=== PATIENT | female | born 2005 | race Caucasian/White ===

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

== ENCOUNTER 2024-01-16 08:17 | Outpatient (CLI) | payer OTHER, SELFPAY ==
[2024-01-16 13:08] LABS: Hematocrit 41.2 % (37.0-47.0); Hemoglobin 12.7 g/dL (12.0-15.0); Mean Corpuscular HGB Conc 30.8 g/dl (32-36); Mean Corpuscular Hemoglobin 25.5 pg (26-34); Mean Corpuscular Volume 82.6 fl (80-100); Mean Platelet Volume 10.6 fl (7.4-10.4); Platelet Count Result 253 k/mm3 (150-375); Red Blood Count 4.99 M/mm3 (4.2-5.4); White Blood Count 6.2 K/mm3 (4.5-10.0)
[2024-01-16 13:23] LABS: Alanine Aminotransferase 35 U/L (6-35); Alkaline Phosphatase 69 U/L (45-116); Aspartate Amino Transferase 42 U/L (14-36); Bilirubin,Total 0.3 mg/dL (0.2-1.3)
[2024-01-16 13:58] LABS: Hemoglobin A1C 5.3 % (<5.7)
== END 2024-01-16 08:18 | disposition home or self-care (01) ==
LOC: ANHGOSHLAB 08:18
PROVIDERS: PCP Family Medicine; Visit Provider Nurse Practitioner
DX: K58.0 Irritable bowel syndrome with diarrhea (principal); R74.8 Abnormal levels of other serum enzymes; E28.2 Polycystic ovarian syndrome
CPT/HCPCS: 36415; 80076; 83036; 83525; 85027

== ENCOUNTER 2024-02-06 01:35 | Emergency (ER) | payer OTHER, SELFPAY ==
[2024-02-06 01:39] VITALS: BP 135/81; PULSE 85; RESP 17; TEMP 36.6; O2SAT 100
--- NOTE | 2024-02-06 02:11 | ED.SKABFB ---
HPI - Skin/Abscess/Foreign Bdy General Chief complaint: Environmental Exposure Stated complaint: I think I have sun poisoning Time Seen by Provider: 02/06/24 01:46 History of Present Illness HPI narrative: Patient is a 18-year-old female with history of recurrent GI issues here with nausea and body aches after prolonged sun exposure today. Patient notes that she was at a water park today and fell asleep while laying on her stomach. She notes she woke up to find the back of her legs extremely sunburned. She has taken ibuprofen about 3 hours ago as well as applied aloe vera without improvement of her symptoms. She notes that she has had nausea, difficulty tolerating p.o. intake, fatigue, body aches, muscle cramping in her bilateral calf as well as pain where her sunburn is located on the back of her legs. Related Data Home Medications Medication Instructions Recorded Confirmed aripiprazole 2 mg tablet mg PO DAILY 03/20/23 01/16/24 etonogestrel 0.12 mg-ethinyl vag ring vaginal 11/23/23 01/16/24 estradiol 0.015 mg/24 hr vaginal ring ([place]) sertraline 100 mg tablet mg PO 11/23/23 01/16/24 Allergies Allergy/AdvReac Type Severity Reaction Status Date / Time No Known Allergies Allergy Verified 02/06/24 02:21 Review of Systems Review of Systems: All systems reviewed & are unremarkable except as noted in HPI and below PMFSH Past Medical History Medical History Abdominal pain Anxiety Choledocholithiasis with chronic cholecystitis Chronic headaches COVID Dizziness Eczema Elevated liver enzymes GERD (gastroesophageal reflux disease) Hemorrhoids Hepatic steatosis History of dental problems Irritable bowel syndrome with diarrhea Nausea and vomiting in adult ARLET (obstructive sleep apnea) Pneumonia Posterior tibial tendinitis of right lower extremity Rectal bleeding RUQ pain Sleep disorder SOB (shortness of breath) on exertion Vomiting Surgical History Surgical History Hx laparoscopic cholecystectomy 06/23/22 Hx of endoscopic retrograde cholangiopancreatography Family History Family History Father Hypertension Family history of elevated blood lipids Other Depression Diabetes mellitus Heart disease History of leukemia Social History Social History (Reviewed 02/01/24 @ 13:01 by Kj Johnson Smoking status: Never smoker Alcohol intake: never Substance use: never Substance use type: does not use Lack of Transportation: No Lack of Food: Never True Current Housing: I Have Housing Concerned About Future Housing: No Difficulty Paying Gas/Electric Bills: No Difficulty Paying for Meds: No Currently Unemployed: No Education: High School Diploma/GED Difficulty w/ Childcare or Family Care: No Living arrangements: with family Occupation/Education: student Gender identity (if verbalized by the patient): Female Spiritual care concerns: No Exam Narrative: GENERAL: Well-appearing, well-nourished, and in no acute distress. HEAD: Normocephalic, atraumatic. EYES: PERRLA and EOMI. ENT: Nares clear. Mucous membranes moist. NECK: Supple. CHEST: Clear to auscultation. No respiratory distress. HEART: Regular rate and rhythm. Normal peripheral pulses. ABDOMEN: Soft, nontender, nondistended. EXTREMITIES: Normal range of motion. Mild bilateral calf edema, 1st degree burn over bilateral calves without any blistering SKIN: Warm, dry, no rash. NEURO: No focal deficits. Alert and oriented x3. Course Course Emergency Course: Chart review performed. Patient here for sunburn. Triage vitals normal. Patient seen and evaluated. Concern for heat exhaustion due to sun exposure today causing her constitutional symptoms. Will do basic lab work, IVF, zofran, tylenol. Patient agreeable to workup and plan. [place]
[2024-02-06 03:03] VITALS: BP 135/81; PULSE 85; RESP 17; TEMP 36.6; O2SAT 100
[2024-02-06] MEDS: LACTATED RINGERS 1,000 ML 999 ML IV CONT (03:09)
[2024-02-06] MEDS: ONDANSETRON INJ 4 MG/2 ML VIAL IV PUSH (03:09)
[2024-02-06 03:17] LABS: Basophils Percent Auto 0.3 % (0.2-1.2); Eosinophils Absolute Auto 0.2 K/mm3 (0-0.3); Eosinophils Percent Auto 1.5 % (0-4.4); Hematocrit 40.2 % (37.0-47.0); Hemoglobin 12.7 g/dL (12.0-15.0); Immature Granulocyte Absolute 0.03 K/mm3 (0.00-0.031); Immature Granulocyte Percent A 0.3 % (0-0.5); Lymphocytes Absolute Auto 3.43 K/mm3 (0.9-3.2); Lymphocytes Percent Auto 33.4 % (18.3-44.2); Mean Corpuscular HGB Conc 31.6 g/dl (32-36); Mean Corpuscular Hemoglobin 25.7 pg (26-34); Mean Corpuscular Volume 81.4 fl (80-100); Mean Platelet Volume 10.1 fl (7.4-10.4); Monocytes Absolute Auto 0.6 K/mm3 (0.1-0.6); Neutrophils Percent Auto 58.5 % (45.5-73.1); Platelet Count Result 259 k/mm3 (150-375); Red Blood Count 4.94 M/mm3 (4.2-5.4); Red Cell Distribution Width 14.6 % (11.5-14.5); White Blood Count 10.3 K/mm3 (4.5-10.0)
--- NOTE | 2024-02-06 03:59 | PC.NURSE ---
This RN, ROWAN Pitts & Ivonne Lopez have already tried multiple times each to obtain labs and/or IV on pt without success. Phlebotomy called to obtain labs and stated he would come attempt after morning rounds.
[2024-02-06 05:03] LABS: Alanine Aminotransferase 46 U/L (6-35); Albumin Level 4.4 g/dL (3.7-5.6); Alkaline Phosphatase 74 U/L (45-116); Anion Gap 10 mmol/L (4-12); Aspartate Amino Transferase 33 U/L (14-36); Bilirubin,Total 0.4 mg/dL (0.2-1.3); Blood Urea Nitrogen 10 mg/dL (8-21); Calcium 9.2 mg/dL (8.9-10.7); Carbon Dioxide 24 mmol/L (22-30); Chloride 105 mmol/L (98-107); Estimated CRCL calculation 161 ml/min; Estimated Glomerular Filt Rate > 60; Glucose 94 mg/dL (65-110); Potassium 3.7 mmol/L (3.4-5.0); Sodium 139 mmol/L (134-143)
[2024-02-06 05:11] LABS: Creatine Kinase 83 U/L (30-135)
[2024-02-06 05:24] LABS: Appearance Urine Clear (Clear); Bacteria Urine None Seen /hpf; Bilirubin Urine Negative (Negative); Blood Urine 1+ (Negative); Color Urine Yellow (Yellow); Glucose Urine UA Negative (Negative); Ketones Urine Negative (Negative); Leukocyte Esterase Ur Negative LEU/UL (Negative); Nitrate Urine Negative (Negative); Non Pathogenic Casts 0-2; Protein Urine Negative (Negative); RBC Urine 0-2 /hpf (0-2); Squamous Epithelial Cell Urine None Seen /hpf (Few); Urobilinogen Urine 0.2 mg/dL (<2.0); WBC Urine 0-5 /hpf (0-3); pH Urine 5.5 (5.0-9.0)
[2024-02-06 05:27] LABS: Add Urine Microscopic? YES
== END 2024-02-06 05:30 | disposition home or self-care (01) ==
PROVIDERS: Emergency Provider Student in an Organized Health Care Education/Training Program; PCP Family Medicine
DX: T67.5XXA Heat exhaustion, unspecified, initial encounter (principal); L55.0 Sunburn of first degree; Z87.01 Personal history of pneumonia (recurrent); K21.9 Gastro-esophageal reflux disease without esophagitis; K58.0 Irritable bowel syndrome with diarrhea; G47.33 Obstructive sleep apnea (adult) (pediatric); F41.9 Anxiety disorder, unspecified; Z86.16 Personal history of COVID-19; R11.2 Nausea with vomiting, unspecified; X32.XXXA Exposure to sunlight, initial encounter
CPT/HCPCS: 36415; 80053; 81001; 81025; 82550; 85025; 96361; 96374; 99284; J2405; J7120

== ENCOUNTER 2024-03-29 15:10 | Outpatient (CLI) | payer OTHER, SELFPAY ==
--- NOTE | ~2024-03-29 | XR_ITS ---
XR knee LT 3V 03/29/2024 15:25 Indication: Left knee pain Procedure: 3 views left knee Comparison: No prior studies for comparison. Findings: There is anatomic alignment. No fracture, subluxation or dislocation. No joint effusion. No foreign bodies. Impression: 1: No significant bone or joint abnormality. Reviewed, dictated and finalized at location B. Impression: 1: No significant bone or joint abnormality.
== END 2024-03-29 15:11 ==
LOC: GOSHIMG 15:12
PROVIDERS: PCP Family Medicine; Visit Provider Nurse Practitioner Family
DX: M25.562 Pain in left knee (principal)
CPT/HCPCS: 73562

== ENCOUNTER 2024-04-11 09:05 | Outpatient (CLI) | payer OTHER, SELFPAY ==
--- NOTE | ~2024-04-11 | MR_ITS ---
MRI of the lumbar spine Clinical History: Radiculopathy Technique: Axial T2-weighted images, and sagittal T1-weighted, T2-weighted, and and T2 fat-sat images were acquired. Findings: There is no fracture or sublocation of the lumbar spine. Vertebral bodies maintain normal h eight and line. No bone marrow signal abnormality seen. At L1-L2, L2-L3, L3-L4, L4-L5, there is no significant disc bulge or herniation. There are moderate f acet joint degenerative changes at these levels. No spinal canal stenosis or neural foraminal narrowi ng at these levels. At L5-S1, there is mild diffuse disc bulge with mild to moderate facet arthropathy. No central canal stenosis. There is moderate bilateral neural foraminal narrowing, left worse than right. Paravertebral soft tissues are unremarkable. Impression: Moderate bilateral neural foraminal narrowing at L5-S1, left worse than right. Additional mild degenerative change, as above. Reviewed, dictated and finalized at [facility]. Impression: Moderate bilateral neural foraminal narrowing at L5-S1, left worse than right. Additional mild degenerative change, as above.
== END 2024-04-11 09:06 | disposition home or self-care (01) ==
LOC: GOSHIMG 09:06
PROVIDERS: PCP Family Medicine; Visit Provider Nurse Practitioner Family
DX: M54.16 Radiculopathy, lumbar region (principal)
CPT/HCPCS: 72148

== ENCOUNTER 2024-07-15 13:00 | Outpatient (RCR) | payer OTHER, SELFPAY ==
--- NOTE | 2024-06-20 09:02 | OPREHPOC ---
Outpatient Therapy Plan of Care This is a Multidisciplinary Plan of Care that may contain components documented by all disciplines (PT, OT, and ST.) PT Problem 1 PT Problem #1 Knowledge Deficit PT Goal 1 Goal / Goal Update [place] with HEP Target Visit 4 PT Goal 2 Goal / Goal Update Patient will demonstrate ability to properly obtain pelvic tilt without biofeedback Target Visit 4 PT Problem 2 PT Problem #2 Pain PT Goal 1 Goal / Goal Update Report multiple days of 0/10 pain over the course of 2 weeks Target Visit 8 PT Problem 3 PT Problem #3 Impaired Strength PT Goal 1 Goal / Goal Update Improve lower abdominal strength to 4/5 to improve pelvic stability with transitional strengthening program Target Visit 8 PT Problem 4 PT Problem #4 Impaired Range of Motion PT Goal 1 Goal / Goal Update Improve jordi ankle dorsiflexion to 10+ degrees to improve stride and foot progression with gait and ADL performance. Target Visit 8 PT Goal 2 Goal / Goal Update Patient will require cueing less than 50% of the time for shoulder posturing and upright posturing for improved spinal alignment with ADLs and work related activity Target Visit 8
--- NOTE | 2024-06-20 09:02 | PTOPEVAL1 ---
Assessment and note entered by Kuldeep Tyler, PT Evaluation Information Assessment Status Evaluation Diagnosis Spondylosis without radiculopathy ICD-10 Condition Codes (PT) Pain in low back M54.50 Onset 8 years Subjective Information Reports that she will have occasional numbness and tingling in her feet when she sits for a long time. Pain is all in the lower back. She used to dance and tumble and has a history of falls with this but no specific injury. If she stands or sits for too long she gets pain and has to constantly reposition. She will occasionally wake up with pain as well. She typically sleeps in all different posititions. Reported Pain Level Pain Score 4: Self Report Assessment PT Clinical Summary Patient presents with signs and symptoms consistent with early onset spinal stenosis and discogenic aggravation. Presents with tight posterior chain in ankles and very weak lower abdominals. Kyphotic thoracic spine exaggerates lumbar postural stress. Will benefit from skilled therapy to address these deficits for transition to independent spinal strengthening program. Plan of Care Interventions Electrical Stimulation,Gait Training,Hot Pack/Cold Pack,Manual Therapy,Neuro Re-education, Therapeutic Activities,Therapeutic Exercise PT Services Indicated Yes Treatment Frequency and 2x/week for 8 visits Duration These treatments will address the objective and functional deficits as defined above. The patient will be advanced safely and appropriately in order for the patient to progress towards his/her prior level of function. Additional exercises will be introduced and as well as a comprehensive home exercise program upon discharge, if needed, ?to ensure carryover of functional gains achieved in the clinic. This treatment plan has been reviewed and agreement upon by the patient.
--- NOTE | 2024-07-15 13:48 | OPREHPOC ---
Outpatient Therapy Plan of Care This is a Multidisciplinary Plan of Care that may contain components documented by all disciplines (PT, OT, and ST.) PT Problem 1 PT Problem #1 Knowledge Deficit PT Goal 1 Goal / Goal Update [place] with HEP Target Visit 4 Progress Met PT Goal 2 Goal / Goal Update Patient will demonstrate ability to properly obtain pelvic tilt without biofeedback Target Visit 4 Progress Met PT Problem 2 PT Problem #2 Pain PT Goal 1 Goal / Goal Update Report multiple days of 0/10 pain over the course of 2 weeks Target Visit 8 Progress Met PT Problem 3 PT Problem #3 Impaired Strength PT Goal 1 Goal / Goal Update Improve lower abdominal strength to 4/5 to improve pelvic stability with transitional strengthening program Target Visit 8 Progress Met PT Problem 4 PT Problem #4 Impaired Range of Motion PT Goal 1 Goal / Goal Update Improve jordi ankle dorsiflexion to 10+ degrees to improve stride and foot progression with gait and ADL performance. Target Visit 8 Progress Partially Met PT Goal 2 Goal / Goal Update Patient will require cueing less than 50% of the time for shoulder posturing and upright posturing for improved spinal alignment with ADLs and work related activity Target Visit 8 Progress Met
--- NOTE | 2024-07-15 13:48 | PTOPDC ---
Assessment and note entered by Kuldeep Tyler, PT Evaluation Information Assessment Status Discharge Diagnosis Spondylosis without radiculopathy ICD-10 Condition Codes (PT) Pain in low back M54.50 Onset 8 years Subjective Information Reports that overall she is doing much better at this time. Pain is down although she does have a possible kidney infection which is different from her prior pain. No concerns for discharge at this time. Reported Pain Level Pain Score 0: Self Report Assessment PT Clinical Summary Patient has met goals for therapy and is suitable for discharge at this time to HEP. No concerns on continued performance of HEP. Plan of Care PT Services Indicated Yes
== END 2024-07-15 17:11 | disposition home or self-care (01) ==
LOC: ANHPT 13:00
PROVIDERS: PCP Family Medicine; Visit Provider Nurse Practitioner Family
DX: M47.816 Spondylosis without myelopathy or radiculopathy, lumbar region (principal)
CPT/HCPCS: 97110; 97112; 97140; 97161; 97530

== ENCOUNTER 2024-07-17 18:58 | Emergency (ER) | payer OTHER, SELFPAY ==
--- NOTE | ~2024-07-17 | CT_ITS ---
EXAMINATION: CT abdomen pelvis w con DATE: 07/17/2024 23:50 INDICATION: Flank pain. TECHNIQUE: Computed tomography (CT) of the abdomen and pelvis was performed with 100 mL Omnipaque 350 intravenous contrast. Automated exposure control and iterative reconstruction technique were employe d. The dose-length product was 1891.42 mGy-cm. COMPARISON: CT abdomen and pelvis 03/28/2023 FINDINGS: The visualized portions of the lung bases demonstrate minimal atelectasis. No pleural effus ion. The heart size is normal. No pericardial effusion. The liver, spleen, pancreas, adrenal glands, and kidneys are normal. There are changes of cholecystectomy. There are no dilated loops of bowel. Th e appendix is normal. There are no pathologically enlarged lymph nodes. There is no free intraperiton eal fluid. The bones are unremarkable. IMPRESSION: 1. No etiology for the patient's symptoms. Reviewed, dictated and finalized at location A. E COORDINATOR
[2024-07-17 19:00] VITALS: BP 131/87; PULSE 105; RESP 16; TEMP 36.6; O2SAT 100
[2024-07-17 21:44] VITALS: BP 133/86; PULSE 103; RESP 18; O2SAT 100
[2024-07-17 22:17] VITALS: BP 126/77; PULSE 98; RESP 16; TEMP 37; O2SAT 98
[2024-07-17 22:19] LABS: BEDSIDEPREGUCG Negative (Negative)
[2024-07-17] MEDS: SODIUM CHLORIDE 0.9% IV 1,000 ML 999 ML IV CONT (22:34)
[2024-07-17] MEDS: ONDANSETRON INJ 4 MG/2 ML VIAL IV PUSH (22:34)
[2024-07-17 22:35] LABS: Basophils Percent Auto 0.3 % (0.2-1.2); Eosinophils Absolute Auto 0.1 K/mm3 (0-0.3); Eosinophils Percent Auto 1.4 % (0-4.4); Hematocrit 44.3 % (37.0-47.0); Immature Granulocyte Absolute 0.02 K/mm3 (0.00-0.031); Immature Granulocyte Percent A 0.3 % (0-0.5); Immature Platelet Fraction Pct 3.4 % (0.9-11.2); Lymphocytes Absolute Auto 1.74 K/mm3 (0.9-3.2); Lymphocytes Percent Auto 22.7 % (18.3-44.2); Mean Corpuscular HGB Conc 31.6 g/dl (32-36); Mean Platelet Volume 9.8 fl (7.4-10.4); Monocytes Absolute Auto 0.3 K/mm3 (0.1-0.6); Monocytes Percent Auto 3.8 % (2.6-8.5); Neutrophils Absolute Auto 5.5 K/mm3 (1.3-6.7); Neutrophils Percent Auto 71.5 % (45.5-73.1); Platelet Count Result 246 k/mm3 (150-375); Red Blood Count 5.61 M/mm3 (4.2-5.4); White Blood Count 7.7 K/mm3 (4.5-10.0)
[2024-07-17 22:42] LABS: Lipase 71 U/L (23-300)
[2024-07-17 22:48] LABS: Add Urine Microscopic? YES; Appearance Urine Clear (Clear); Bacteria Urine None Seen /hpf; Bilirubin Urine Negative (Negative); Blood Urine 2+ (Negative); Color Urine Dark Yellow (Yellow); Glucose Urine UA Negative (Negative); Ketones Urine Trace mg/dL (Negative); Leukocyte Esterase Ur Negative LEU/UL (Negative); Need Manual Microscopic Reviewed; Nitrate Urine Negative (Negative); Non Pathogenic Casts 0-2; Protein Urine Trace mg/dL (Negative); Specific Grav Ur 1.035 (1.001-1.035); Squamous Epithelial Cell Urine Few /hpf (Few); WBC Urine 0-5 /hpf (0-3); pH Urine 5.5 (5.0-9.0)
--- NOTE | 2024-07-17 23:02 | ED.GENADULT ---
HPI - General Adult General Chief complaint: Nausea/Vomiting/Diarrhea Stated complaint: r/o kidney infection Time Seen by Provider: 07/17/24 21:45 History of Present Illness HPI narrative: Patient is a 18-year-old female who presents to the emergency department this evening complaining of bilateral flank pain for the past 3 days. Patient states that she saw her OBGYN a few days ago and had her urine checked OBGYN place her on antibiotics due to concern for UTI which she has been taking for the past 2 days. Patient states that she was informed that she did have some blood in the urine but also states that she is currently on her menstrual cycle so she is unsure if the blood is from that. Patient states that initially her flank pain was on the right side but now it is bilateral and she is concerned that she has a kidney infection. Denies any history of kidney stones. Admits mild nausea and vomiting. Admits to mild dysuria. No additional symptoms or concerns at this time. Related Data Home Medications ?Medication ?Instructions ?Recorded ?Confirmed ?Last Taken ?Type aripiprazole 2 mg tablet mg PO DAILY 03/20/23 07/12/24 Unknown History Allergies Allergy/AdvReac Type Severity Reaction Status Date / Time No Known Allergies Allergy Verified 07/12/24 16:25 Review of Systems Review of Systems: All systems are reviewed and are negative unless stated otherwise in the HPI. [facility] Past Medical History Medical History Hepatic steatosis Rectal bleeding Hemorrhoids Vomiting GERD (gastroesophageal reflux disease) Irritable bowel syndrome with diarrhea COVID Choledocholithiasis with chronic cholecystitis Nausea and vomiting in adult RUQ pain Elevated liver enzymes Posterior tibial tendinitis of right lower extremity Eczema Sleep disorder Anxiety Abdominal pain ARLET (obstructive sleep apnea) Pneumonia SOB (shortness of breath) on exertion History of dental problems Dizziness Chronic headaches Surgical History Surgical History Hx of endoscopic retrograde cholangiopancreatography Hx laparoscopic cholecystectomy 06/23/22 Family History Family History Father Hypertension Family history of elevated blood lipids Other Depression Diabetes mellitus Heart disease History of leukemia Social History Social History Smoking status: Never smoker Alcohol intake: never Substance use: never Substance use type: does not use Lack of Transportation: No Lack of Food: Never True Current Housing: I Have Housing Concerned About Future Housing: No Difficulty Paying Gas/Electric Bills: No Difficulty Paying for Meds: No Currently Unemployed: No Education: High School Diploma/GED Difficulty w/ Childcare or Family Care: No Living arrangements: with family Occupation/Education: student Gender identity (if verbalized by the patient): Female Spiritual care concerns: No Exam Narrative: General: Alert, awake, afebrile, in no acute distress. HEENT: PERRL, no rhinorrhea, no post nasal drip, oropharynx clear. Neck: Trachea midline, no JVD, no lymphadenopathy. Cardiovascular: Regular rate and rhythm, no murmurs, rubs or gallops, no peripheral edema. Respiratory: Clear to auscultation bilaterally, no tachypnea, no wheezing, no rhonchi, no rubs, no respiratory distress. Abdomen: Soft, nontender, nondistended, no rebound, no guarding, no peritoneal signs, negative CVA tenderness bilaterally. Musculoskeletal: No joint swelling or deformity, normal muscle tone. Skin: No rashes or petechia, no signs of infection. Psychiatric: Alert and oriented, normal behavior and judgment for situation. Neurological: Alert and oriented to person, place, and time. Follows all commands. No focal deficits, speech is clear and fluent. Course Vital Signs Vital signs: Vital Signs Temperature 97.8 F 07/17/24 19:00 Pulse Rate 105 H 07/17/24 19:00 Respiratory Rate 16 07/17/24 19:00 Blood Pressure 131/87 07/17/24 19:00 Pulse Oximetry 100 07/17/24 19:00 Temperature 97.6 F 07/17/24 23:40 Pulse Rate 86 07/17/24 23:40 Respiratory Rate 14 07/17/24 23:40 Blood Pressure 120/80 07/17/24 23:40 Pulse Oximetry 100 07/17/24 23:40 Medical Decision Making MDM Narrative Medical decision making narrative: The patient was evaluated by myself in the emergency department. History is obtained from patient who is an independent historian and physical exam was performed. External medical records were reviewed at this time. IV was established and pertinent tests were ordered. Patient was administered 1 L IV fluid bolus with normal saline, 200 mg of oral Pyridium and 4 mg of IV Zofran for nausea. Laboratory results obtained revealing mild transaminitis with an AST of 47 and an ALT of 93 otherwise no acute process. Urinalysis revealed 2+ blood otherwise unremarkable. Patient was informed to continue taking her antibiotic and to finish her full prescribed course. Imaging studies obtained included CT abdomen pelvis with IV contrast which was independently interpreted by me revealing no acute process, which is pending final radiology interpretation. Differential diagnosis considerations include pyelonephritis, cystitis, urinary tract infection, renal colic/nephrolithiasis. Comorbidities impacting this visit include none. I have evaluated and discussed social determinants of health with the patient that could potentially impact subsequent diagnosis and treatment plans. On repeat assessment of the patient, reevaluation revealed that the patient is doing well and is in no acute distress. Patient symptoms have improved since she arrived to our emergency department. Repeat vital signs were all reviewed and noted to be stable. Differential diagnosis and treatment plan were discussed with the patient at bedside. Patient agrees with discussion and after shared medical decision making agrees with discharge. All questions were answered to the patient's satisfaction. Patient will follow up with her OBGYN in 3-5 days. Patient was provided with strict return precautions and instructed to return to the emergency department if any new or worsening symptoms develop. The patient was discharged in stable condition. Vital Signs Vital Signs: Vital Signs Temperature 97.8 F 07/17/24 19:00 Pulse Rate 105 H 07/17/24 19:00 Respiratory Rate 16 07/17/24 19:00 Blood Pressure 131/87 07/17/24 19:00 Pulse Oximetry 100 07/17/24 19:00 Temperature 97.6 F 07/17/24 23:40 Pulse Rate 86 07/17/24 23:40 Respiratory Rate 14 07/17/24 23:40 Blood Pressure 120/80 07/17/24 23:40 Pulse Oximetry 100 07/17/24 23:40 Lab Data 07/17/24 22:24 07/17/24 23:17 Labs: Lab Results 07/17/24 07/17/24 07/17/24 Range/Units 22:10 22:15 22:17 WBC (4.5-10.0) K/mm3 RBC (4.2-5.4) M/mm3 Hgb (12.0-15.0) g/dL Hct (37.0-47.0) % MCV (80-100) fl MCH (26-34) pg MCHC (32-36) g/dl RDW (11.5-14.5) % Plt Count (150-375) k/mm3 MPV (7.4-10.4) fl Immature Gran % (Auto) (0-0.5) % Neut % (Auto) (45.5-73.1) % Lymph % (Auto) (18.3-44.2) % [place] % (Auto) (2.6-8.5) % Eos % (Auto) (0-4.4) % Baso % (Auto) (0.2-1.2) % Lymph # (Auto) (0.9-3.2) K/mm3 [place] # (Auto) (0.1-0.6) K/mm3 Eos # (Auto) (0-0.3) K/mm3 Baso # (Auto) (0.0-0.1) K/mm3 Abs Immat Gran (auto) (0.00-0.031) K/mm3 Absolute Neuts (auto) (1.3-6.7) K/mm3 Absolute Nucleated RBC (0.0-0.012) K/mm3 Nucleated RBC % (0.0-0.2) % Platelet Estimate (Adequate) % Immature Plt Fraction (0.9-11.2) % Ovalocytes [place] Cells Schistocytes Sodium (134-143) mmol/L Potassium (3.4-5.0) mmol/L Chloride (98-107) mmol/L Carbon Dioxide (22-30) mmol/L Anion Gap (4-12) mmol/L BUN (8-21) mg/dL Creatinine (0.7-1.0) mg/dL Estim Creat Clear Calc ml/min Estimated GFR (59 - ) Glucose (65-110) mg/dL Calcium (8.9-10.7) mg/dL Magnesium (1.6-2.3) mg/dL Total Bilirubin (0.2-1.3) mg/dL AST (14-36) U/L ALT (6-35) U/L Alkaline Phosphatase (45-116) U/L Total Protein (6.3-8.6) g/dL Albumin (3.7-5.6) g/dL Lipase (23-300) U/L Serum HCG, Qual Negative Urine Color Dark yellow (Yellow) Urine Appearance Clear (Clear) Urine pH 5.5 (5.0-9.0) Ur Specific [place] 1.035 (1.001-1.035) Urine Protein Trace (Negative) mg/dL Urine Glucose (UA) Negative (Negative) mg/dL Urine Ketones Trace H (Negative) mg/dL Ur Blood (Man) 2+ H (Negative) Urine Nitrate Negative (Negative) Urine Bilirubin Negative (Negative) Urine Urobilinogen 1.0 (<2.0) mg/dL Add Ur Microanalysis Reviewed Leukocyte Esterase Rfl Negative (Negative) TANK/UL Urine RBC 6-10 H (0-2) /hpf Urine WBC 0-5 (0-3) /hpf Ur Squamous Epith Cells Few (Few) /hpf Urine Bacteria None seen /hpf Urine Casts 0-2 POC Urine HCG, Qual Negative (Negative) 07/17/24 07/17/24 Range/Units 22:24 23:17 WBC 7.7 (4.5-10.0) K/mm3 RBC 5.61 H (4.2-5.4) M/mm3 Hgb 14.0 (12.0-15.0) g/dL Hct 44.3 (37.0-47.0) % MCV 79.0 L (80-100) fl MCH 25.0 L (26-34) pg MCHC 31.6 L (32-36) g/dl RDW 15.0 H (11.5-14.5) % Plt Count 246 (150-375) k/mm3 MPV 9.8 (7.4-10.4) fl Immature Gran % (Auto) 0.3 (0-0.5) % Neut % (Auto) 71.5 (45.5-73.1) % Lymph % (Auto) 22.7 (18.3-44.2) % [place] % (Auto) 3.8 (2.6-8.5) % Eos % (Auto) 1.4 (0-4.4) % Baso % (Auto) 0.3 (0.2-1.2) % Lymph # (Auto) 1.74 (0.9-3.2) K/mm3 [place] # (Auto) 0.3 (0.1-0.6) K/mm3 Eos # (Auto) 0.1 (0-0.3) K/mm3 Baso # (Auto) 0.0 (0.0-0.1) K/mm3 Abs Immat Gran (auto) 0.02 (0.00-0.031) K/mm3 Absolute Neuts (auto) 5.5 (1.3-6.7) K/mm3 Absolute Nucleated RBC 0.000 (0.0-0.012) K/mm3 Nucleated RBC % 0.0 (0.0-0.2) % Platelet Estimate Adequate (Adequate) % Immature Plt Fraction 3.4 (0.9-11.2) % Ovalocytes 1+ [place] Cells 1+ Schistocytes None seen Sodium 138 (134-143) mmol/L Potassium 4.0 (3.4-5.0) mmol/L Chloride 112 H (98-107) mmol/L Carbon Dioxide 21 L (22-30) mmol/L Anion Gap 5 (4-12) mmol/L BUN 9 (8-21) mg/dL Creatinine 0.70 (0.7-1.0) mg/dL Estim Creat Clear Calc 163 ml/min Estimated GFR > 60 (59 - ) Glucose 93 (65-110) mg/dL Calcium 8.0 L (8.9-10.7) mg/dL Magnesium 1.9 (1.6-2.3) mg/dL Total Bilirubin 0.6 (0.2-1.3) mg/dL AST 47 H (14-36) U/L ALT 93 H (6-35) U/L Alkaline Phosphatase 63 (45-116) U/L Total Protein 6.0 L (6.3-8.6) g/dL Albumin 3.6 L (3.7-5.6) g/dL Lipase 71 (23-300) U/L Serum HCG, Qual Cancelled Urine Color (Yellow) Urine Appearance (Clear) Urine pH (5.0-9.0) Ur Specific [place] (1.001-1.035) Urine Protein (Negative) mg/dL Urine Glucose (UA) (Negative) mg/dL Urine Ketones (Negative) mg/dL Ur Blood (Man) (Negative) Urine Nitrate (Negative) Urine Bilirubin (Negative) Urine Urobilinogen (<2.0) mg/dL Add Ur Microanalysis Leukocyte Esterase Rfl (Negative) TANK/UL Urine RBC (0-2) /hpf Urine WBC (0-3) /hpf Ur Squamous Epith Cells (Few) /hpf Urine Bacteria /hpf Urine Casts POC Urine HCG, Qual (Negative) Discharge Plan Discharge Clinical Impression: Acute flank pain Patient Disposition: Home, Self-Care Condition: Improved Instructions: Antibiotic Form, Flank Pain (ED) Additional Instructions: Please follow-up with your family doctor within the next 3-5 days. Continue taking the antibiotic that you are currently taking for urinary tract infection. Use the prescribed peridium as instructed to help with your dysuria. Return to the emergency department if any new or worsening symptoms develop. Patient Language: Ukrainian Prescriptions: New phenazopyridine [Pyridium] 200 mg tablet 200 mg PO TID Qty: 3 0RF No Action aripiprazole 2 mg tablet PO DAILY (DME) cpap mask See Rx Instructions .Route .MEDSUPPLY Qty: 1 0RF Rx Instructions: Half face mask covering nose replacement for Resmed Airsense AutoPAP benzonatate 200 mg capsule 200 mg PO TID PRN (Reason: cough) Qty: 30 0RF promethazine-DM 6.25-15 mg/5 mL syrup 5 ml PO Q4-6H PRN (Reason: cough) Qty: 118 0RF albuterol sulfate 90 mcg/actuation HFA aerosol inhaler 1 puff inhalation Q4H PRN (Reason: shortness of breath or wheezing) Qty: 6.7 2RF (DME) CPAP See Rx Instructions .Route .MEDSUPPLY Qty: 1 0RF Rx Instructions: Resmed AirSense 11 AutoPAP 5-15 cm H2O, CPAP mask/filters/tubing and humidifier chamber trazodone 50 mg tablet 50 mg PO QHS PRN (Reason: sleep) Qty: 60 2RF Rx Instructions: take 1 tablet at bedtime for 1 week, may increase to 2 tablets at bedtime if needed Follow-up/Referrals: Navin Reynolds MD [Primary Care Provider] - 1 Week Time of Disposition: 00:05
[2024-07-17 23:12] LABS: SPREG INTERNAL CONTROL Positive; Serum Qual hCG Negative
[2024-07-17 23:31] LABS: Alanine Aminotransferase 93 U/L (6-35); Albumin Level 3.6 g/dL (3.7-5.6); Alkaline Phosphatase 63 U/L (45-116); Anion Gap 5 mmol/L (4-12); Aspartate Amino Transferase 47 U/L (14-36); Bilirubin,Total 0.6 mg/dL (0.2-1.3); Blood Urea Nitrogen 9 mg/dL (8-21); Carbon Dioxide 21 mmol/L (22-30); Chloride 112 mmol/L (98-107); Estimated CRCL calculation 163 ml/min; Estimated Glomerular Filt Rate > 60; Glucose 93 mg/dL (65-110); Magnesium 1.9 mg/dL (1.6-2.3); Sodium 138 mmol/L (134-143)
[2024-07-17 23:39] LABS: Burr Cells 1+; Ovalocytes 1+; Platelet Estimate Adequate (Adequate); Schistocytes None Seen
[2024-07-17 23:40] VITALS: BP 120/80; PULSE 86; RESP 14; TEMP 36.4; O2SAT 100
[2024-07-18] MEDS: PHENAZOPYRIDINE HCL 100 MG TABLET 200 MG PO (00:12)
== END 2024-07-18 00:15 | disposition home or self-care (01) ==
PROVIDERS: Emergency Provider Emergency Medicine; PCP Family Medicine
DX: R10.9 Unspecified abdominal pain (principal); K21.9 Gastro-esophageal reflux disease without esophagitis; K58.0 Irritable bowel syndrome with diarrhea; G47.33 Obstructive sleep apnea (adult) (pediatric); F41.9 Anxiety disorder, unspecified; Z90.49 Acquired absence of other specified parts of digestive tract; Z86.16 Personal history of COVID-19; Z79.899 Other long term (current) drug therapy
CPT/HCPCS: 36415; 74177; 80053; 81001; 81025; 83690; 83735; 84703; 85025; 85055; 96361; 96374; 99284; A9270; J2405; J7030; Q9967

== ENCOUNTER 2024-11-04 09:39 | Outpatient (CLI) | payer OTHER, SELFPAY ==
--- NOTE | ~2024-11-04 | MR_ITS ---
MRI of the left knee Clinical history: Pain Technique: Coronal proton density and proton density-weighted images, sagittal proton-density and T2 fat-sat images, and axial proton-density fat-saturated images were acquired. Findings: Anterior and posterior cruciate ligaments are intact. There is increased signal of proximal ACL which could reflect mild mucoid degenerative change. Medial collateral ligament and the lateral collateral ligament, as are intact. Popliteus tendon is intact. Medial and lateral menisci are intact, without evidence of tear. Articular cartilage is well preserved throughout the knee. Bone marrow signals are unremarkable. Extensor mechanism is intact. No joint effusion or Lozano's cyst. Impression: No acute abnormality. Suspected mild mucoid degenerative change of the proximal ACL. Reviewed, dictated and finalized at location . Impression: No acute abnormality. Suspected mild mucoid degenerative change of the proximal ACL.
== END 2024-11-04 09:40 | disposition home or self-care (01) ==
LOC: GOSHIMG 09:40
PROVIDERS: PCP Nurse Practitioner Family; Visit Provider Nurse Practitioner Family
DX: M25.562 Pain in left knee (principal)
CPT/HCPCS: 73721

== ENCOUNTER 2025-02-12 15:01 | Outpatient (CLI) | payer OTHER, SELFPAY ==
--- OUTSIDE RECORDS SUMMARY | 2025-02-12 15:05 | XMS_ITS | Clinical Summary ---
Author Organization [facility] [employer] Address [address] [place] [address] Care Team Providers Care Damage Adjuster Name Role Phone Katlyn Reynolds MD Primary Care Provider [phone] Source Comments [facility] [employer],non-owned Affiliates and Associated Physician Practices is amultiple site organization consisting of ambulatory clinics and hospital sitesin [place], [place], [place] and [place]. This disclosure is being madepursuant to the Care Everywhere program and may not contain all information available regarding this patient. Last updated 18.[employer] Allergies No known active allergies Medications * Be aware that medications may not be up to date on this document. Alwaysverify current medications with the patient. No known medications Family History Medical History Relation Name Comments CAD (Coronary Artery Disease) Maternal Grandmother Leukemia Maternal Grandmother Asthma Mother Leukemia Paternal Grandfather Relation Name Status Comments Father Alive Maternal Grandmother Mother Alive Paternal Grandfather Social History Tobacco Use Types Packs/Day Years Used Date Smoking Tobacco: Never Smokeless Tobacco: Never Comments:non smoking househo ld Comments No Sex and Gender Information Value Date Recorded Sex Assigned at Not on file Legal Sex Female 9:04 AM CDT Gender Identity Not on file Sexual Orientation Not on file Last Filed Vital Signs Vital Sign Reading Time Taken Comments Blood Pressure 110/58 07/09/2020 11:20 AM BUSINESS DIVISION CHAIR Pulse 88 07/09/2020 11:20 AM BUSINESS DIVISION CHAIR Temperature 36.9 C (98.4 F) 05/03/2018 4:38 PM CDT Respiratory Rate 20 07/09/2020 11:2 0 AM BUSINESS DIVISION CHAIR Oxygen Saturation 99% 07/09/2020 11: 20 AM BUSINESS DIVISION CHAIR Inhaled Oxygen Concentration - - Weight 110.3 kg (243 lb 2.7 oz) 020 11:20 AM BUSINESS DIVISION CHAIR Height 174 cm (5' 8.5) 07/09/2020 11:2 0 AM BUSINESS DIVISION CHAIR Body Mass Index 36.43 07/09/2020 11:20 AM BUSINESS DIVISION CHAIR Plan of Treatment Health Maintenance Due Date Last Done Comments HIV SCREENING 2019 HPV VACCINE (1 - 3-dose series) 2019 CHLAMYDIA/GONORRHEA SCREENING 2020 MENINGOCOCCAL (Group B) VACC INE SHARED DECISION-MAKING (1 of 2 - Standard) 2020 HEPATITIS C SCREENING 07/24/2022 DTAP/TDAP/TD VACCINES (1 - Tdap) 2023 HEPATITIS B VACCINE (1 of 3 - 19+ 3-dose series) 2023 COVID-19 VACCINE (1 - 2023-2 5 season) 2024 DEPRESSION SCREENING 08/07/2024 INFLUENZA VACCINE (#1) 2025 ZOSTER VACCINE (1 of 2) 2054 HIB VACCINE Aged Out No longer eligi ble based on patient's age to complete this topic MENINGOCOCCAL GROUPS A/C/Y/W VACCINE Aged Out No longer eligible b ased on patient's age to complete this topic PNEUMOCOCCAL VACCINE Aged Out No long er eligible based on patient's age to complete this topic Insurance [employer] Care Teams Damage Adjuster Relationship Specialty Start Date End Date Katlyn Reynolds MD [address] [place] [address] PCP - General Family Medicine 06/24/20
--- OUTSIDE RECORDS SUMMARY | 2025-02-12 15:05 | XMS_ITS | Clinical Summary ---
Author Organization [facility] Address [facility] [place] [address] Care Team Providers Care Entry Level Assistant Manager Name Role Phone Navin Reynolds MD Primary Care Provider [phone]- [phone] Allergies No known active allergies Encounters Date Type Department Care Team Description 01/01/2025 6:39 PM CDT - 01/01/2025 10:23 PM CDT Emergency [facility] Emergency Room [id number] [place] [address] [phone] Sharita Miller DO Abdominal Pain Discharge Disposition: Home or Self Care (Routine Discharge) 01/01/2025 Travel from Last 3 Months Social History Tobacco Use Types Packs/Day Years Used Date Smoking Tobacco: Never Assessed Tobacco Cessation:Counseling Given: Not Answered Comments Unknown Sex and Gender Information Value Date Recorded Sex Assigned at Female 01/01/2025 7:30 PM CDT Legal Sex Female 6:36 PM CDT Gender Identity Not on file Sexual Orientation Not on file Last Filed Vital Signs Vital Sign Reading Time Taken Comments Blood Pressure 109/69 01/01/2025 10:23 PM CDT Pulse 93 01/01/2025 6:45 PM CDT Temperature 37.1 C (98.7 F) 01/01/2025 6:45 PM CDT Respiratory Rate 16 01/01/2025 6:45 PM CDT Oxygen Saturation 97% 01/01/2025 10:23 PM CDT Inhaled Oxygen Concentration - - Weight 131.5 kg (290 lb) 01/01/2025 6:45 PM CDT Height 175.3 cm (5' 9) 01/01/2025 6:45 PM CDT Body Mass Index 42.83 01/01/2025 6:45 PM CDT Plan of Treatment Health Maintenance Due Date Last Done Comments Annual Physical 2007 HPV Vaccines (1 - 3-dose series) 2019 Meningococcal B Vaccine (1 o f 2 - Standard) 2020 Hepatitis C 2022 DTaP, Tdap and Td Vaccines ( 1 - Tdap) 2023 Hepatitis B Vaccines (1 of 3 - 19+ 3-dose series) 2023 COVID-19 Vaccine (3 - 2023-2 5 season) 2024 07/20/2021, 06/02/2021 Meningococcal Vaccine Completed 04/17/2023 Pneumococcal Vaccine: Pediatrics (0 to 5 Years) and At-Risk Patients (6 to 49 Years) Aged Out No longer eligible b ased on patient's age to complete this topic RSV Immunizations Under 20 Months Aged Out No longer eligible b ased on patient's age to complete this topic Procedures Procedure Name Priority Date/Time Associated Diagnosis Comments CT ABD+PEL W CON STAT 01/01/2025 9:13 PM CDT LIPASE STAT 01/01/2025 7:00 PM CDT COMPREHENSIVE METABOLIC PANEL STAT 01/01/2025 7:00 PM CDT CBC W/DIFF AUTOMATED STAT 01/01/2025 7:00 PM CDT TEST URINE STAT 01/01/2025 6:50 PM CDT URINALYSIS, AUTO, COMPLETE STAT 01/01/2025 6:50 PM CDT from Last 3 Months Results * CT ABD+PEL W CON (01/01/2025 9:13 PM CDT) Anatomical Region Laterality Modality Abdomen Computed Tomogra phy 01/01/2025 9:25 PM CDT Impressions 01/01/2025 9:31 PM CDT IMPRESSION: No acute abnormality identified to explain the patient's acute symptoms. Referred By: Interpreted By: Trenton Esqueda MD, 01/01/2025 9:25 PM Narrative 01/01/2025 9:31 PM CDT [facility] [address] [facility] [place] [address] EXAMINATION: CT ABD+PEL W CON CLINICAL HISTORY: Bilateral quadrant pain COMPARISON: None DATE/TIME: 01/01/2025 9:07 PM TECHNIQUE: Multiplanar CT images of the abdomen and pelvis were obtained. IV contrast: uneventful intravenous administration of 85 mL Isovue 370. Oral contrast: None. A dose lowering technique was used for this procedure, which may include, but is not limited to, dose reduction technique, automated exposure control, the use of iterative reconstruction, and ALARA (As Low As Reasonably Achievable) / Image Gently techniques. FINDINGS: Liver is negative. Cholecystectomy. No bile duct dilatation. Pancreas is negative. Spleen is negative. Adrenal glands are negative. Kidneys are negative. Bladder is decompressed and not well evaluated. Uterus and ovaries are within normal limits with a right ovarian corpus luteum. Abdominal aorta is normal caliber. No free air or fluid. No bowel obstruction. No bowel wall thickening. No evidence of appendicitis. Stomach and duodenum are unremarkable. No acute osseous abnormality. Procedure Note Trenton Esqueda MD - 01/01/2025 [facility] [address] [place] [address] EXAMINATION: CT ABD+PEL W CON CLINICAL HISTORY: Bilateral quadrant pain COMPARISON: None DATE/TIME: 01/01/2025 9:07 PM TECHNIQUE: Multiplanar CT images of the abdomen and pelvis were obtained.IV contrast: uneventful intravenous administration of 85 mL Isovue 370.Oral contrast: None. A dose lowering technique was used for this procedure, which may include,but is not limited to, dose reduction technique, automated exposurecontrol, the use of iterative reconstruction, and ALARA (As Low AsReasonably Achievable) / Image Gently techniques. FINDINGS: Liver is negative. Cholecystectomy. No bile duct dilatation.Pancreas is negative. Spleen is negative. Adrenal glands are negative. Kidneys are negative. Bladder is decompressed and not well evaluated.Uterus and ovaries are within normal limits with a right ovarian corpusluteum. Abdominal aorta is normal caliber. No free air or fluid. No bowel obstruction. No bowel wall thickening.No evidence of appendicitis. Stomach and duodenum are unremarkable. Noacute osseous abnormality. IMPRESSION: No acute abnormality identified to explain the patient's acute symptoms. Referred By: Interpreted By: Trenton Esqueda MD, 01/01/2025 9:25 PM [facility] CT Final Result * COMPREHENSIVE METABOLIC PANEL (01/01/2025 7:00 PM CDT) GLUCOSE 95 70 - 99 MG/DL 01/01/2025 7:[address] [facility] BUN 11 7 - 18 MG/DL 01/01/2025 7:[address] [facility] CREATININE S/P/B 0.80 0.55 - 1.02 MG/DL 01/01/2025 7:[address] [facility] SODIUM S/P/B 138 136 - 145 MMOL/L 01/01/2025 7:[address] [facility] POTASSIUM S/P/B 3.7 3.5 - 5.1 MMOL/L 01/01/2025 7:[address] [facility] CHLORIDE S/P/B 102 100 - 108 MMOL/L 01/01/2025 7:[address] [facility] CO2 24.4 21 - 32 MMOL/L 01/01/2025 7:[address] [facility] CALCIUM S/P/B 9.4 8.5 - 10.1 MG/DL 01/01/2025 7:[address] [facility] BILIRUBIN TOTAL S/P/B 0.5 0.2 - 1.2 MG/DL 01/01/2025 7:[address] [facility] TOTAL PROTEIN S/P/B 7.7 6.4 - 8.2 G/DL 01/01/2025 7:[address] [facility] ALBUMIN S/P/B 3.8 3.4 - 5.0 G/DL 01/01/2025 7:[address] [facility] AST 17 15 - 37 U/L 01/01/2025 7:[address] [facility] ALT 26 14 - 55 U/L 01/01/2025 7:[address] [facility] ALKALINE PHOSPHATASE S/P/B 64 50 - 136 U/L 01/01/2025 7:[address] [facility] ANION GAP 11.6 5 - 15 MMOL/L 01/01/2025 7:[address] [facility] BUN CREATININE RATIO 13.8 6 - 26 01/01/2025 7:[address] [facility] A/G RATIO 1.0 1.0 - 2.0 RATIO 01/01/2025 7:[address] [facility] GFR ESTIMATE >90 >90 ML/MIN/1.7 3 M2 01/01/2025 7:[address] [facility] Comment: NOTE: eGFR is not calculated for patients <18 years of age. This is an estimated GFR calculation using the new CKD EPI creatinine equation without race and so does not require a correction factor for race. This estimated GFR should not be used for calculating drug doses. 01/01/2025 7:00 PM CDT us Sharita Miller DO LABORATORY Final Result [facility] [address] [place] [address], [place] [phone] * (ABNORMAL) CBC W/DIFF AUTOMATED (01/01/2025 7:00 PM CDT) WBC 10.92 4.4 - 11.0 x10'3/uL 01/01/2025 7:[address] [facility] RBC 5.06 4.50 - 5.10 x10'6/uL 01/01/2025 7:[address] [facility] HGB 13.2 12.3 - 15.3 G/DL 01/01/2025 7:[address] [facility] HCT 40.3 35.9 - 44.6 % 01/01/2025 7:[address] [facility] MCV 79.6(L) 80.0 - 96.0 FL 01/01/2025 7:[address] [facility] MCH 26.1 25.3 - 30.9 PG 01/01/2025 7:[address] [facility] MCHC 32.8 31.0 - 34.1 G/DL 01/01/2025 7:[address] [facility] RDW 14.6 12.4 - 15.1 % 01/01/2025 7:[address] [facility] PLT 278 151 - 353 x10'3/uL 01/01/2025 7:[address] [facility] MPV 9.5(L) 9.6 - 12.0 FL 01/01/2025 7:[address] [facility] RBC MORPHOLOGY NORMAL 01/01/2025 7:[address] [facility] PLT MORPH. NORMAL 01/01/2025 7:[address] [facility] WBC MORPHOLOGY NORMAL 01/01/2025 7:[address] [facility] LYMPHOCYTES % 23.6 15.8 - 45.0 % 01/01/2025 7:[address] [facility] NEUTROPHILS % 69.7 42.1 - 71.9 % 01/01/2025 7:[address] [facility] MONOCYTES % 5.4(L) 5.7 - 12.5 % 01/01/2025 7:[address] [facility] EOSINOPHILS 0.5 0.0 - 5.6 % 01/01/2025 7:[address] [facility] BASOPHILS 0.3 0.0 - 1.3 % 01/01/2025 7:[address] [facility] ABS. NEUTROPHILS 7.61(H) 1.40 - 6.00 x10'3/uL 01/01/2025 7:[address] [facility] IMMATURE GRANS % 0.5 0.0 - 0.5 % 01/01/2025 7:[address] [facility] ABS. LYMPHOCYTES 2.58 0.80 - 4.70 x10'3/uL 01/01/2025 7:[address] [facility] 01/01/2025 7:00 PM CDT us Sharita Miller DO LABORATORY Final Result Performing Organization Address City/[facility]/ZIP Co de Phone Number [facility] [address] [place] [address], * LIPASE (01/01/2025 7:00 PM CDT) LIPASE 21 16 - 77 UNITS/L 01/01/2025 7:[address] [facility] 01/01/2025 7:00 PM CDT us Sharita Miller DO LABORATORY Final Result Performing Organization Address City/[facility]/ZIP Co de Phone Number [facility] [address] [place] [address], [place] [phone] * TEST URINE (01/01/2025 6:50 PM CDT) URINE HCG TEST NEGATIVE NEGATIVE 01/01/2025 7:[address] [facility] Comment: VERY DILUTE URINE SPECIMENS MAY NOT CONTAIN CHEMICAL UNIT OPERATOR LEVELS OF HCG. IF IS STILL SUSPECTED, A SERUM HCG TEST IS RECOMMENDED. URINE SPECIMEN FROM URETHRA / Unknown 01/01/2025 6:50 PM CDT Sharita Miller DO URINE ORDERABLES Final Result Performing Organization Address [facility] Co de Phone Number [facility] [address] [place] [address], [place] [phone] * (ABNORMAL) URINALYSIS, AUTO, COMPLETE (01/01/2025 6:50 PM CDT) COLOR (U) YELLOW 01/01/2025 7:[address] [facility] TRANSPARENCY CLEAR 01/01/2025 7:[address] [facility] SPECIFIC GRAVITY (U) 1.020 1.000 - 1.030 01/01/2025 7:[address] [facility] U PH 6.0 5.0 - 9.0 01/01/2025 7:[address] [facility] LEUKOCYTES (U) 2+(A) NEGATIVE 01/01/2025 7:[address] [facility] NITRITES NEGATIVE NEGATIVE 01/01/2025 7:[address] [facility] PROTEIN RANDOM (U) 2+(A) NEGATIVE 01/01/2025 7:[address] [facility] GLUCOSE (U) NEGATIVE NEGATIVE 01/01/2025 7:[address] [facility] KETONES MG/DL (U) NEGATIVE NEGATIVE 01/01/2025 7:[address] [facility] BILIRUBIN (U) NEGATIVE NEGATIVE 01/01/2025 7:[address] [facility] BLOOD (U) 3+(A) NEGATIVE 01/01/2025 7:[address] [facility] WBC/HPF 10-25 0 - 5 /HPF 01/01/2025 7:[address] [facility] RBC/HPF 10-25 0 - 5 /HPF 01/01/2025 7:[address] [facility] EPI/HPF FEW /HPF 01/01/2025 7:[address] [facility] URINE SPECIMEN OBTAINED BY CLEAN CATCH PROCEDURE / Unknown 01/01/2025 6:50 PM CDT Sharita Miller DO URINE ORDERABLES Final Result Performing Organization Address City/State/[facility] Co de Phone Number [facility] [address] [place] [phone], [place] [phone] from Last 3 Months Insurance [employer] Care Teams Entry Level Assistant Manager Relationship Specialty Start Date End Date Navin Reynolds MD [address] [facility] [address] [phone] PCP - General FAMILY PRACTICE 01/01/25
--- OUTSIDE RECORDS SUMMARY | 2025-02-12 15:05 | XMS_ITS | Clinical Summary ---
Author Organization [facility] Address [address] [place] [phone] Care Team Providers Care Wood Heel Flap Inserter Name Role Phone Navin Reynolds MD Primary Care Provider +1 -[phone] Allergies No known active allergies Medications Vienva 0.1-20 mg-mcg per tablet 06/23/2022 Active albuterol HFA (PROVENTIL HFA,VENTOLIN HFA,PROAIR HFA) 90 mcg/actuation inhaler Inhale 2 puffs 05/17/2022 Active escitalopram (LEXAPRO) 10 mg tablet 08/15/2022 Active meloxicam (MOBIC) 15 mg tablet Take 1 tablet (15 mg total) by mouth daily 30 tablet 01/07/2025 Active Active Problems Problem Noted Date Diagnosed Date Concussion with no loss of consciousness 022 Cervical muscle strain, initial encounter 2021 Encounters Date Type Department Care Team Description 01/07/2025 3:10 PM CDT Ancillary Procedure [facility] Imaging at [address] [phone] Acute pain of left knee 01/07/2025 3:05 PM CDT Ancillary Procedure [facility] Imaging at [address] [phone] 01/07/2025 3:00 PM CDT Office Visit [facility] Orthopedic and Sports Medicine [address] [place] [phone] Evette Coles PA Chronic pain of left knee (Primary Dx); Inflammation of joint of left knee; BMI 40.0-44.9, adult (HCC) 11/22/[address] 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 Gender Identity Not on file Sexual Orientation Not on file Obstetrics History Last Filed Vital Signs Vital Sign Reading Time Taken Comments Blood Pressure 112/76 01/07/2025 3:17 PM CDT Pulse 79 01/07/2025 3:17 PM CDT Temperature - - Respiratory Rate - - Oxygen Saturation - - Inhaled Oxygen Concentration - - Weight 132.9 kg (293 lb) 01/07/2025 3:17 PM CDT Height 175.3 cm (5' 9) 01/07/2025 3:17 PM CDT Body Mass Index 43.27 01/07/2025 3:17 PM CDT Plan of Treatment Health Maintenance Due Date Last Done Comments Depression Screening 2004 Hepatitis C Screening 2004 DTaP/Tdap/Td Vaccine (1 - Tdap) 2015 Varicella Vaccines (1 of 2 - 13+ 2-dose series) 2017 HPV Vaccines (1 - 3-dose series) 2019 Meningococcal B Vaccine (1 o f 2 - Standard) 2020 Hepatitis B Screening 2022 Regular Well Visit/Exam 18-64 2022 Covid-19 Vaccine (3 - 2023-2 5 season) 2024 07/20/2021, 06/02/2021 Influenza Vaccine (Season Ended) 2025 06/12/2020, 06/01/2018 Meningococcal Vaccine Aged Out No jigar cesar eligible based on patient's age to complete this topic Pneumococcal vaccine <65 Aged Out No longer eligible based on patient's age to complete this topic Procedures Procedure Name Priority Date/Time Associated Diagnosis Comments XR KNEE LEFT 4 OR MORE VIEWS Schedule Routine, Read Routine (OP Routine) 01/07/2025 3:12 PM CDT Chronic pain of left knee XR PELVIS 1 OR 2 VIEWS Schedule Routine, Read Routine (OP Routine) 01/07/2025 3:11 PM CDT Acute pain of left knee from Last 3 Months Results * XR Knee Left 4+ View (01/07/2025 3:12 PM CDT) Anatomical Region Laterality Modality Lower Extremities, Knee Left Digital Radiography Narrative 02/01/2025 8:07 PM CDT Radiographs of the left knee reviewed interpreted. No acute fractures or destructive osseous lesions. Joint spaces are maintained. Evette [facility] [place]R PROCEDURES Final Result * XR Pelvis 1 or 2 Views (01/07/2025 3:11 PM CDT) Anatomical Region Laterality Modality Body, Pelvis N/A Digital Radiogra phy Narrative 02/01/2025 8:07 PM CDT Radiographs of the pelvis reviewed interpreted. No acute fractures, destructive osseous lesions, or degenerative changes noted. Evette [facility]R PROCEDURES Final Result from Last 3 Months Insurance [employer] [facility] Care Teams Wood Heel Flap Inserter Relationship Specialty Start Date End Date Navin Reynolds MD PCP - General Family Medicine 07/08/22
--- OUTSIDE RECORDS SUMMARY | 2025-02-12 15:05 | XMS_ITS | Patient Health Record ---
Author Organization [facility] [employer] Address [address] [place] [address] Care Team Providers Care Mental Health Therapist Name Role Phone Jose Miguel Yoon Unavailable [phone] Umesh Story Unavailable [phone] Allergies No Known Allergies Reason For Referral No Information Medications Medication SIG (Take, Route, Frequency, Duration) Notes Start Date End Date Status Diclofenac Sodium 2.5 % as directed Externally Active ProAir HFA 108 (90 Base) MCG/ACT Inhalation 12/12/2023 Active traZODone HCl 50 MG 1 tablet at bedtime Oral Once a day; Duration: 30 days As needed 12/12/2023 Active Abilify Maintena 400 MG 400mg Intramuscu lar once monthly; Duration: 30 days Activ e ARIPiprazole 10 MG 1 tablet Orally Once a day; Duration: 14 days 07/09/2024 Active Social History Tobacco Use: Social History Observation Description Date Details (start date - stop date) Current Smoker 01/06/2023 - NA Sex Assigned At : Social History Observation Description Sex Assigned At Female Tobacco Control (Standard) Question Answer Notes Tobacco use: Current every day smoker When did you start smoking? 01/06/2023 When did you start smoking? 02/04/2023 How often do you smoke cigarettes? Every day How soon after you wake up d o you smoke your first cigarette? Within 5 minutes Are you interested in quitting? Thinking about q uitting AUDIT-C (Standard) Question Answer Notes Did you have a drink contain ing alcohol in the past year? Yes Points 1 How often did you have six o r more drinks on one occasion in the past year? Never (0 point) How many drinks did you have on a typical day when you were drinking in the past year? 1 or 2 drinks (0 point) How often did you have a dri nk containing alcohol in the past year? Monthly or less (1 point) Problems Problem Type SNOMED Code ICD Code Onset Dates Problem Status W/U Status Risk Notes Problem Mild recurrent major depression (25590060) Major depressive disorder, recurrent, mild (F33.0) 4 Active confirmed Problem Severe recurrent major depression without psychotic features (06615002) Major depressive disorder, recurrent severe without psychotic features (F33.2) Active confirmed Problem Generalized anxiety disorder (37788171) Generalized anxiety disorder (F41.1) 4 Active confirmed Problem Tobacco user (345822797) Other tobacco product nicotine dependence, uncomplicated (F17.290) Active confirmed Vital Signs Heart Rate 79 /min 10/01/2024 Height-cm 175.26 cm 10/01/2024 Blood pressure diastolic 73 mm Hg 10/01/2024 Weight-kg 130.64 kg 10/01/2024 BMI Percentile 98.6 % 08/09/2024 Height 69.00 in 10/01/2024 Blood pressure systolic 115 mm Hg 10/01/2024 Weight 288 lbs 10/01/2024 BMI 42.53 kg/m2 10/01/2024 Encounters Encounter Location Date Provider Diagnosis [facility] [place] [id number] [facility] [address] [place] [address] 02/13/2024 Jose Miguel Yoon Generalized anxiety disorder F41.1 and Major depressive disorder, recurrent, mild F33.0 [facility] [place] [address] [facility] [address] [place] [address] 03/12/2024 Jose Miguel Yoon Generalized anxiety disorder F41.1 and Major depressive disorder, recurrent, mild F33.0 [facility] [place] [id number] ON LICENSE OF [facility] [address] [facility] [address] [place] [address] 04/12/2024 Umesh Story Depression, major, recurrent, mild F33.0 [facility] [place] [address] [facility] [address] [place] [address] 05/14/2024 Umesh Porsha [facility] [place] [address] [facility] [address] [place] [address] 05/14/2024 Jose Miguel Yoon Generalized anxiety disorder F41.1 ; Major depressive disorder, recurrent, mild F33.0 and Other tobacco product nicotine dependence, uncomplicated F17.290 [facility] [address] [place] [address] 07/09/2024 Jose Miguel Yoon Generalized anxiety disorder F41.1 ; Other tobacco product nicotine dependence, uncomplicated F17.290 and Major depressive disorder, recurrent severe without psychotic features F33.2 [facility], [facility] [address] [place] [address] 08/09/2024 Jose Miguel Yoon Generalized anxiety disorder F41.1 ; Other tobacco product nicotine dependence, uncomplicated F17.290 and Major depressive disorder, recurrent severe without psychotic features F33.2 [facility], [facility] [address] [place] [address] 08/30/2024 Jose Miguel Yoon Generalized anxiety disorder F41.1 ; Other tobacco product nicotine dependence, uncomplicated F17.290 and Major depressive disorder, recurrent severe without psychotic features F33.2 [facility], [facility] [address] [place] [address] 10/01/2024 Jose Miguel Yoon Generalized anxiety disorder F41.1 ; Other tobacco product nicotine dependence, uncomplicated F17.290 and Major depressive disorder, recurrent severe without psychotic features F33.2 [facility], [facility] [address] [place] [address] 04/09/2024 Jose Miguel Yoon Major depressive disorder, recurrent severe without psychotic features F33.2 [facility], [facility] [address] [place] [address] 05/10/2024 Jose Miguel Adamsoza [facility], [facility] [address] [place] [address] 07/08/2024 Jose Miguel Adamsoza [facility], [facility] [address] [place] [address] 08/27/2024 Jose Miguel Adamsoza [facility], [facility] [address] [place] [address] 08/28/2024 Jose Miguel Adamsoza [facility], [facility] [address] [place] [address] 08/30/2024 Jose Miguel Yoon [facility] [address] [place] [address] 11/28/2024 Jose Miguel Yoon [facility] [address] [place] [address] 10/07/2024 Jose Miguel Yoon Assessments Encounter Date Diagnosis (ICD Code) Assessment Notes Treatment Notes Treatment Clinical Notes Section Notes 03/12/2024 Generalized anxiety disorder (ICD-10 - F41.1) MDD -Take Abilify 10mg daily for two weeks -Take injection today of Abilify Maintena 400mg once a month Anxiety -supportive care Insomnia -Continue trazodone 50mg at bedtime. Pt Seen by PMH[employer] student Farzaneh Lamb I have examined the patient with [employer]. It reflects today's encounter and my assessment and treatment plan. 04/09/2024 Major depressive disorder, recurrent severe without psychotic features (ICD-10 - F33.2) 04/12/2024 Depression, major, recurrent, mild (ICD-10 - F33.0) 02/13/2024 Generalized anxiety disorder (ICD-10 - F41.1) 1. Major Depressive Disorder with mixed features - Patient has been non-adherent to medications for the past three weeks, including Abilify 20 mg, Sertraline 100 mg, and Trazodone. - Patient reports increased irritability, sadness, and excessive sleep since stopping medications. - Patient has experienced some hypomanic symptoms but does not meet criteria for hypomania. Plan: a. Restart Abilify 20 mg daily and monitor for improvement in depressive and hypomanic symptoms. b. Hold off on Sertraline for now and reevaluate at the next appointment. c. Discuss the possibility of switching to Abilify Maintenna (injectable) for better adherence in the future. d. Encourage the patient to follow up with the therapist group referral provided by their primary care physician. e. Schedule a follow-up appointment in one month to assess progress and discuss treatment options. 2. control discontinuatio n - Patient has stopped taking control due to side effects and is not currently using any other form of contraception. - Patient reports not being sexually active. Plan: a. Encourage the patient to discuss alternative control options with their primary care physician if they become sexually active in the future. 3. Sleep disturbances - Patient reports excessive sleep since stopping medications. Plan: a. Monitor sleep patterns after restarting Abilify and address any ongoing sleep disturbances at the next appointment. 05/14/2024 Generalized anxiety disorder (ICD-10 - F41.1) MDD -Take Abilify 10mg daily for two weeks -Take injection today of Abilify Maintena 400mg once a month Anxiety -supportive care Insomnia -Continue trazodone 50mg at bedtime. Pt Seen by PMH[employer] student Farzaneh Lamb I have examined the patient with [employer]. It reflects today's encounter and my assessment and treatment plan. 1. Mood Disorder - Patient's mood disorder is currently stable. Plan: - Continue Abilify Maintena 400 mg once a month. - Schedule a follow-up in 2 months to assess anxiety levels. 2. Insomnia - Patient's insomnia is stable. Plan: - Continue Trazodone 50 mg at bedtime as needed. - Encourage the patient to address the broken cpap mask issue with insurance for possible replacement. 3. Anxiety - Patient experiences mild anxiety related to school. Plan: - Monitor the patient's anxiety during the follow-up visit in 2 months. - Encourage the patient to utilize coping strategies and stress management techniques. 4. Nicotine dependence - Patient reports vaping 5% nicotine in the car and experiences cravings, especially upon waking up. The patient has tried gum but found it unhelpful. The goal is to reduce nicotine intake and eventually quit vaping. Plan: a. Prescribe a 21 mg nicotine patch, with instructions to apply one patch once a day for 30 days. b. After 30 days, reassess the patient's nicotine dependence and consider reducing the patch strength to 14 mg and eventually to 7 mg. c. Encourage the patient to try alternative oral fixation strategies, such as sugar-free candy, straws, or suckers, while driving to help break the habit of vaping in the car. 07/09/2024 Generalized anxiety disorder (ICD-10 - F41.1) 1. Major Depressive Disorder: - Patient missed Abilify injection in June and reports increased depressive symptoms, including low mood, lack of interest in activities, and feeling bad about herself. Plan: - Administer Abilify 400 mg IM injection today. - Schedule a follow-up appointment in one month for the next injection. - Prescribe Abilify 10 mg oral daily for 2 weeks to bridge the gap until the injection takes effect. 2. Job loss and increased stress: - Patient recently lost her job, which may be contributing to her worsening depressive symptoms. Plan: - Encourage the patient to seek support from friends, family, or a therapist to help cope with the stress of job loss. - Explore potential new job opportunities. 3. Tobacco use: - Patient reports quitting smoking for 7 weeks but relapsed due to increased stress and worsening depressive symptoms. Plan: - Discuss the benefits of quitting smoking. - Explore options for smoking cessation, such as nicotine replacement therapy (patches) or counseling.. Follow-up: - Schedule a follow-up appointment in one month for the next Abilify 400 mg IM injection. - Assess the patient's response to treatment, depressive symptoms, and progress in smoking cessation. 08/09/2024 Generalized anxiety disorder (ICD-10 - F41.1) 1. Major Depressive Disorder: - Continue Abilify injection 400 mg monthly for mood stabilization Plan: - Monitor for any mood swings or manic-type behaviors - Encourage the patient to report any significant changes in mood or behavior 2. Anxiety: - Likely related to current stressors (job loss, school) Plan: - Monitor anxiety levels and consider medication adjustment if anxiety persists or worsens - Encourage the patient to engage in stress-reducin g activities and seek support from friends and family 3. Insomnia: - Trazodone PRN for sleep, with caution regarding potential next-day drowsiness Plan: - Encourage the patient to maintain good sleep hygiene and establish a regular sleep schedule 4. Smoking: Plan: - Continue to monitor smoking habits - Discuss potential smoking cessation options in future visits if the patient expresses interest in quitting 5. Possible Borderline Personality Disorder: Plan: - Encourage the patient to seek therapy for further evaluation and management - Provide referrals to local therapists or counseling groups - Educate the patient on the importance of therapy in managing borderline personality disorder and associated symptoms 6. Job search and stress management: Plan: - Encourage the patient to seek a suitable job that accommodates her medical needs - Recommend stress management techniques and resources to help cope with current stressors Follow-up: - Schedule a follow-up appointment in one month to assess the patient's progress and response to treatment. 08/30/2024 Generalized anxiety disorder (ICD-10 - F41.1) 10/01/2024 Generalized anxiety disorder (ICD-10 - F41.1) 10/01/2024 Other tobacco product nicotine dependence, uncomplicated (ICD-10 - F17.290) 08/30/2024 Other tobacco product nicotine dependence, uncomplicated (ICD-10 - F17.290) 08/09/2024 Other tobacco product nicotine dependence, uncomplicated (ICD-10 - F17.290) 1. Major Depressive Disorder: - Continue Abilify injection 400 mg monthly for mood stabilization Plan: - Monitor for any mood swings or manic-type behaviors - Encourage the patient to report any significant changes in mood or behavior 2. Anxiety: - Likely related to current stressors (job loss, school) Plan: - Monitor anxiety levels and consider medication adjustment if anxiety persists or worsens - Encourage the patient to engage in stress-reducin g activities and seek support from friends and family 3. Insomnia: - Trazodone PRN for sleep, with caution regarding potential next-day drowsiness Plan: - Encourage the patient to maintain good sleep hygiene and establish a regular sleep schedule 4. Smoking: Plan: - Continue to monitor smoking habits - Discuss potential smoking cessation options in future visits if the patient expresses interest in quitting 5. Possible Borderline Personality Disorder: Plan: - Encourage the patient to seek therapy for further evaluation and management - Provide referrals to local therapists or counseling groups - Educate the patient on the importance of therapy in managing borderline personality disorder and associated symptoms 6. Job search and stress management: Plan: - Encourage the patient to seek a suitable job that accommodates her medical needs - Recommend stress management techniques and resources to help cope with current stressors Follow-up: - Schedule a follow-up appointment in one month to assess the patient's progress and response to treatment. 07/09/2024 Other tobacco product nicotine dependence, uncomplicated (ICD-10 - F17.290) 1. Major Depressive Disorder: - Patient missed Abilify injection in June and reports increased depressive symptoms, including low mood, lack of interest in activities, and feeling bad about herself. Plan: - Administer Abilify 400 mg IM injection today. - Schedule a follow-up appointment in one month for the next injection. - Prescribe Abilify 10 mg oral daily for 2 weeks to bridge the gap until the injection takes effect. 2. Job loss and increased stress: - Patient recently lost her job, which may be contributing to her worsening depressive symptoms. Plan: - Encourage the patient to seek support from friends, family, or a therapist to help cope with the stress of job loss. - Explore potential new job opportunities. 3. Tobacco use: - Patient reports quitting smoking for 7 weeks but relapsed due to increased stress and worsening depressive symptoms. Plan: - Discuss the benefits of quitting smoking. - Explore options for smoking cessation, such as nicotine replacement therapy (patches) or counseling.. Follow-up: - Schedule a follow-up appointment in one month for the next Abilify 400 mg IM injection. - Assess the patient's response to treatment, depressive symptoms, and progress in smoking cessation. 03/12/2024 Major depressive disorder, recurrent, mild (ICD-10 - F33.0) MDD -Take Abilify 10mg daily for two weeks -Take injection today of Abilify Maintena 400mg once a month Anxiety -supportive care Insomnia -Continue trazodone 50mg at bedtime. Pt Seen by PMH[employer] student Farzaneh Lamb I have examined the patient with [employer]. It reflects today's encounter and my assessment and treatment plan. 05/14/2024 Major depressive disorder, recurrent, mild (ICD-10 - F33.0) MDD -Take Abilify 10mg daily for two weeks -Take injection today of Abilify Maintena 400mg once a month Anxiety -supportive care Insomnia -Continue trazodone 50mg at bedtime. Pt Seen by PMHNP student Farzaneh Lamb I have examined the patient with [employer]. It reflects today's encounter and my assessment and treatment plan. 1. Mood Disorder - Patient's mood disorder is currently stable. Plan: - Continue Abilify Maintena 400 mg once a month. - Schedule a follow-up in 2 months to assess anxiety levels. 2. Insomnia - Patient's insomnia is stable. Plan: - Continue Trazodone 50 mg at bedtime as needed. - Encourage the patient to address the broken cpap mask issue with insurance for possible replacement. 3. Anxiety - Patient experiences mild anxiety related to school. Plan: - Monitor the patient's anxiety during the follow-up visit in 2 months. - Encourage the patient to utilize coping strategies and stress management techniques. 4. Nicotine dependence - Patient reports vaping 5% nicotine in the car and experiences cravings, especially upon waking up. The patient has tried gum but found it unhelpful. The goal is to reduce nicotine intake and eventually quit vaping. Plan: a. Prescribe a 21 mg nicotine patch, with instructions to apply one patch once a day for 30 days. b. After 30 days, reassess the patient's nicotine dependence and consider reducing the patch strength to 14 mg and eventually to 7 mg. c. Encourage the patient to try alternative oral fixation strategies, such as sugar-free candy, straws, or suckers, while driving to help break the habit of vaping in the car. 02/13/2024 Major depressive disorder, recurrent, mild (ICD-10 - F33.0) 1. Major Depressive Disorder with mixed features - Patient has been non-adherent to medications for the past three weeks, including Abilify 20 mg, Sertraline 100 mg, and Trazodone. - Patient reports increased irritability, sadness, and excessive sleep since stopping medications. - Patient has experienced some hypomanic symptoms but does not meet criteria for hypomania. Plan: a. Restart Abilify 20 mg daily and monitor for improvement in depressive and hypomanic symptoms. b. Hold off on Sertraline for now and reevaluate at the next appointment. c. Discuss the possibility of switching to Abilify Maintenna (injectable) for better adherence in the future. d. Encourage the patient to follow up with the therapist group referral provided by their primary care physician. e. Schedule a follow-up appointment in one month to assess progress and discuss treatment options. 2. control discontinuatio n - Patient has stopped taking control due to side effects and is not currently using any other form of contraception. - Patient reports not being sexually active. Plan: a. Encourage the patient to discuss alternative control options with their primary care physician if they become sexually active in the future. 3. Sleep disturbances - Patient reports excessive sleep since stopping medications. Plan: a. Monitor sleep patterns after restarting Abilify and address any ongoing sleep disturbances at the next appointment. 05/14/2024 Other tobacco product nicotine dependence, uncomplicated (ICD-10 - F17.290) MDD -Take Abilify 10mg daily for two weeks -Take injection today of Abilify Maintena 400mg once a month Anxiety -supportive care Insomnia -Continue trazodone 50mg at bedtime. Pt Seen by PMH[employer] student Farzaneh Lamb I have examined the patient with [employer]. It reflects today's encounter and my assessment and treatment plan. 1. Mood Disorder - Patient's mood disorder is currently stable. Plan: - Continue Abilify Maintena 400 mg once a month. - Schedule a follow-up in 2 months to assess anxiety levels. 2. Insomnia - Patient's insomnia is stable. Plan: - Continue Trazodone 50 mg at bedtime as needed. - Encourage the patient to address the broken cpap mask issue with insurance for possible replacement. 3. Anxiety - Patient experiences mild anxiety related to school. Plan: - Monitor the patient's anxiety during the follow-up visit in 2 months. - Encourage the patient to utilize coping strategies and stress management techniques. 4. Nicotine dependence - Patient reports vaping 5% nicotine in the car and experiences cravings, especially upon waking up. The patient has tried gum but found it unhelpful. The goal is to reduce nicotine intake and eventually quit vaping. Plan: a. Prescribe a 21 mg nicotine patch, with instructions to apply one patch once a day for 30 days. b. After 30 days, reassess the patient's nicotine dependence and consider reducing the patch strength to 14 mg and eventually to 7 mg. c. Encourage the patient to try alternative oral fixation strategies, such as sugar-free candy, straws, or suckers, while driving to help break the habit of vaping in the car. 07/09/2024 Major depressive disorder, recurrent severe without psychotic features (ICD-10 - F33.2) 1. Major Depressive Disorder: - Patient missed Abilify injection in June and reports increased depressive symptoms, including low mood, lack of interest in activities, and feeling bad about herself. Plan: - Administer Abilify 400 mg IM injection today. - Schedule a follow-up appointment in one month for the next injection. - Prescribe Abilify 10 mg oral daily for 2 weeks to bridge the gap until the injection takes effect. 2. Job loss and increased stress: - Patient recently lost her job, which may be contributing to her worsening depressive symptoms. Plan: - Encourage the patient to seek support from friends, family, or a therapist to help cope with the stress of job loss. - Explore potential new job opportunities. 3. Tobacco use: - Patient reports quitting smoking for 7 weeks but relapsed due to increased stress and worsening depressive symptoms. Plan: - Discuss the benefits of quitting smoking. - Explore options for smoking cessation, such as nicotine replacement therapy (patches) or counseling.. Follow-up: - Schedule a follow-up appointment in one month for the next Abilify 400 mg IM injection. - Assess the patient's response to treatment, depressive symptoms, and progress in smoking cessation. 08/09/2024 Major depressive disorder, recurrent severe without psychotic features (ICD-10 - F33.2) 1. Major Depressive Disorder: - Continue Abilify injection 400 mg monthly for mood stabilization Plan: - Monitor for any mood swings or manic-type behaviors - Encourage the patient to report any significant changes in mood or behavior 2. Anxiety: - Likely related to current stressors (job loss, school) Plan: - Monitor anxiety levels and consider medication adjustment if anxiety persists or worsens - Encourage the patient to engage in stress-reducin g activities and seek support from friends and family 3. Insomnia: - Trazodone PRN for sleep, with caution regarding potential next-day drowsiness Plan: - Encourage the patient to maintain good sleep hygiene and establish a regular sleep schedule 4. Smoking: Plan: - Continue to monitor smoking habits - Discuss potential smoking cessation options in future visits if the patient expresses interest in quitting 5. Possible Borderline Personality Disorder: Plan: - Encourage the patient to seek therapy for further evaluation and management - Provide referrals to local therapists or counseling groups - Educate the patient on the importance of therapy in managing borderline personality disorder and associated symptoms 6. Job search and stress management: Plan: - Encourage the patient to seek a suitable job that accommodates her medical needs - Recommend stress management techniques and resources to help cope with current stressors Follow-up: - Schedule a follow-up appointment in one month to assess the patient's progress and response to treatment. 08/30/2024 Major depressive disorder, recurrent severe without psychotic features (ICD-10 - F33.2) Last abilify maintena 400mg injection given 08/08/24 10/01/2024 Major depressive disorder, recurrent severe without psychotic features (ICD-10 - F33.2) Last abilify maintena 400mg injection given 08/09/24 02/13/2024 Other Aripiprazole Injection (ARIPIPRAZOLE EXTENDED RELEASE - INJECTION) [FDB] material was published 1. Major Depressive Disorder with mixed features - Patient has been non-adherent to medications for the past three weeks, including Abilify 20 mg,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
--- OUTSIDE RECORDS SUMMARY | 2025-02-12 15:05 | XMS_ITS | Referral Summary ---
Author Organization [facility] Address [address] [place] [address] Care Team Providers Care Extension Service Agent Name Role Phone Navin Reynolds MD Primary Care Provider [phone] [phone] Encounters Date Type Department Care Team Description 01/07/2025 3:10 PM CDT Ancillary Procedure [facility] Medical Group Imaging at [address] [address] Acute pain of left knee 01/07/2025 3:05 PM CDT Ancillary Procedure [facility] Medical [facility] Imaging at [address] [phone] 01/07/2025 3:00 PM CDT Office Visit [facility] Medical [facility] Orthopedic and Sports Medicine [address] [place] [phone] Evette Coles PA Chronic pain of left knee (Primary Dx); Inflammation of joint of left knee; BMI 40.0-44.9, adult (HCC) 11/22/2024 Telephone [facility] Medical [facility] Orthopedics and Sports Medicine [address] [place] [address] [place] [address] Geovanna Mason MA from Last 3 Months Allergies No known active allergies Medications Vienva [...] 022 Cervical muscle strain, initial encounter 2021 Social History Tobacco Use Types Packs/Day Years Used Date Smoking Tobacco: Never Tobacco Cessation:Counseling Given: Not Answered Comments Unknown Sex and Gender Information Value Date Recorded Sex Assigned at Not on file 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 Joint spaces are maintained. Evette HERRERA IMG XR PROCEDURES Final Result * XR Pelvis 1 or 2 Views (01/07/2025 3:11 PM CDT) Anatomical Region Laterality Modality Body, Pelvis N/A Digital Radiogra phy Narrative 02/01/2025 8:07 PM CDT Radiographs of the pelvis reviewed interpreted. No acute fractures, destructive osseous lesions, or degenerative changes noted. Evette HERRERA IMG XR PROCEDURES Final Result from Last 3 Months Insurance [employer] OS HMO [employer] ACCESS OOS Care Teams Extension Service Agent Relationship Specialty Start Date End Date Navin Reynolds MD PCP - General Family Medicine 07/08/22
[2025-02-12 21:43] LABS: Beta HCG Quantitative 44.30 mIU/ML
== END 2025-02-12 15:02 | disposition home or self-care (01) ==
LOC: ANHGOSHLAB 15:03
PROVIDERS: PCP Family Medicine; Visit Provider Family Medicine
DX: N91.2 Amenorrhea, unspecified (principal)
CPT/HCPCS: 36415; 84702

== ENCOUNTER 2025-02-17 14:45 | Outpatient (CLI) | payer OTHER, SELFPAY ==
--- OUTSIDE RECORDS SUMMARY | 2025-02-17 14:48 | XMS_ITS | Patient Health Record ---
Author Organization [facility] [employer] Address [address] [place] [address] Care Team Providers Care Inventory Transcriber Name Role Phone Jose Miguel Yoon Unavailable [phone] Umesh Story Unavailable [phone] Allergies No Known Allergies Reason For Referral [...] Risk Notes Problem Mild recurrent major depression (32400674) Major depressive disorder, recurrent, mild (F33.0) 4 Active confirmed Problem Severe recurrent major depression without psychotic features (90224817) Major depressive disorder, recurrent severe without psychotic features (F33.2) Active confirmed Problem Generalized anxiety disorder (20009458) Generalized anxiety disorder (F41.1) 4 Active confirmed Problem Other tobacco product nicotine dependence, uncomplicated (F17.290) Active confirmed Vital Signs Heart Rate 79 /min 10/01/2024 Height-cm 175.26 cm 10/01/2024 Blood pressure diastolic 73 mm Hg 10/01/2024 Weight-kg 130.64 kg 10/01/2024 BMI Percentile 98.6 % 08/09/2024 Height 69.00 in 10/01/2024 Blood pressure systolic 115 mm Hg 10/01/2024 Weight 288 lbs 10/01/2024 BMI 42.53 kg/m2 10/01/2024 Encounters Encounter Location Date Provider Diagnosis [facility] [employer] [place] [address] [facility] [address] [place] [address] 03/12/2024 Jose Miguel Yoon Generalized anxiety disorder F41.1 and Major depressive disorder, recurrent, mild F33.0 [facility] [place] [address] [facility] [address] [place] [address] 04/12/2024 Umesh Story Depression, major, recurrent, mild F33.0 [facility] [address] [facility] [address] [place] [address] 05/14/2024 Umesh Story [facility] [address] [facility] [address] [facility] [address] [place] [address] 05/14/2024 Jose Miguelradha Diaza Generalized anxiety disorder F41.1 ; Major depressive disorder, recurrent, mild F33.0 and Other tobacco product nicotine dependence, uncomplicated F17.290 [facility] [place] [address] [facility] [address] [place] [address] 07/09/2024 Jose Miguel Yoon Generalized anxiety disorder F41.1 ; Other tobacco product nicotine dependence, uncomplicated F17.290 and Major depressive disorder, recurrent severe without psychotic features F33.2 [facility], [facility] [address] [place] [address] 08/09/2024 Jose Miguel Yoon Generalized anxiety disorder F41.1 ; Other tobacco product nicotine dependence, uncomplicated F17.290 and Major depressive disorder, recurrent severe without psychotic features F33.2 [facility], [facility] [address] [place] [address] 08/30/2024 Jose Miguel Yoon Generalized anxiety disorder F41.1 ; Other tobacco product nicotine dependence, uncomplicated F17.290 and Major depressive disorder, recurrent severe without psychotic features F33.2 [facility], [facility] [address] [place] [address] 10/01/2024 Jose Miguel Yoon Generalized anxiety disorder F41.1 ; Other tobacco product nicotine dependence, uncomplicated F17.290 and Major depressive disorder, recurrent severe without psychotic features F33.2 [facility], [facility] [address] [place] [address] 04/09/2024 Jose Miguel Yoon Major depressive disorder, recurrent severe without psychotic features F33.2 [facility], [facility] [address] [place] [address] 05/10/2024 Jose Miguel Yoon [facility], [facility] [address] [place] [address] 07/08/2024 Jose Miguel Yoon [facility], [facility] [address] [place] [address] 08/27/2024 Jose Miguel Yoon [facility], [facility] [address] [place] [address] 08/28/2024 [facility], [facility] [address] [place] [address] 08/30/2024 Jose Miguel Yoon [facility], [facility] [address] [place] [address] 11/28/2024 Jose Miguel Yoon [facility], [facility] [address] [place] [address] 10/07/2024 Jose Miguel Yoon Assessments Encounter Date [...] Lamb I have examined the patient with LEADERSHIP PROGRAM ASSOCIATE Student. It reflects today's encounter and my assessment and treatment plan. 04/09/2024 Major depressive disorder, recurrent severe without psychotic features (ICD-10 - F33.2) 04/12/2024 Depression, major, recurrent, mild (ICD-10 - F33.0) 05/14/2024 Generalized anxiety disorder (ICD-10 - F41.1) MDD -Take Abilify 10mg daily for two weeks -Take injection today of Abilify Maintena 400mg once a month Anxiety -supportive care Insomnia -Continue trazodone 50mg at bedtime. Pt Seen by PMHNP student Farzaneh Lamb I have examined the patient with LEADERSHIP PROGRAM ASSOCIATE Student. It reflects today's encounter and my [...] - Encourage the patient to engage in stress-reducing activities and seek support from friends and [...] - Encourage the patient to engage in stress-reducing activities and seek support from friends and [...] Lamb I have examined the patient with LEADERSHIP PROGRAM ASSOCIATE Student. It reflects today's encounter and my assessment and treatment plan. 05/14/2024 Major depressive disorder, recurrent, mild (ICD-10 - F33.0) MDD -Take Abilify 10mg daily for two weeks -Take injection today of Abilify Maintena 400mg once a month Anxiety -supportive care Insomnia -Continue trazodone 50mg at bedtime. Pt Seen by PMHNP student Farzaneh Lamb I have examined the patient with LEADERSHIP PROGRAM ASSOCIATE Student. It reflects today's encounter and my [...] the habit of vaping in the car. 05/14/2024 Other tobacco product nicotine dependence, uncomplicated (ICD-10 - F17.290) MDD -Take Abilify 10mg daily for two weeks -Take injection today of Abilify Maintena 400mg once a month Anxiety -supportive care Insomnia -Continue trazodone 50mg at bedtime. Pt Seen by PMHNP student Farzaneh Lamb I have examined the patient with LEADERSHIP PROGRAM ASSOCIATE Student. It reflects today's encounter and my [...] - Encourage the patient to engage in stress-reducing activities and seek support from friends and [...] Last abilify maintena 400mg injection given 08/09/24 08/30/2024 Other 1. Major Depressive Disorder: - [...] Plan: - Instruct the patient to visit [employer] for information on the patient assistance program. - Provide a sample of Abilify injection today. - Send the Abilify injection prescription to [email or web address], who are known for handling prior authorizations well. 4. Abilify maintenance: - Patient's last injection was on August 09 and is overdue for the next injection. Plan: - Administer Abilify injection today. - Prescribe Abilify 10 mg orally for the next 14 days while waiting for the injection to take effect. - Send the oral prescription to [email or web address]. 5. Follow-up: - Schedule a follow-up appointment in one month. Plan Of Treatment No Information Insurance Providers Payer Name Payer Address Payer Phone Subscriber Number Group Number Insured Name Patient Relationship to Insured Coverage Start Date Coverage End Date [facility] [address] [place] [address] [id number] NARGIS AGUILLON Child - Insured has Financial [...] Surgical History Surgery Date(Month/Year) Removal of gallbladder (61928) 2
--- OUTSIDE RECORDS SUMMARY | 2025-02-17 14:48 | XMS_ITS | Referral Summary ---
Author Organization [facility] Address [address] [place] [address] Care Team Providers Care Physiologist Name Role Phone Navin Reynolds MD Primary Care Provider [phone] [phone] Encounters Date Type Department Care Team Description 01/07/2025 3:10 PM CDT Ancillary Procedure [facility] Medical Group Imaging at [address] [address] Acute pain of left knee 01/07/2025 3:05 PM CDT Ancillary Procedure [facility] Imaging at [address] [phone] 01/07/2025 3:00 PM CDT Office Visit [facility] Orthopedic and Sports Medicine [address] [place] [address] Evette Coles PA Chronic pain of left knee (Primary Dx); Inflammation of joint of left knee; BMI 40.0-44.9, adult (HCC) 11/22/2024 Telephone [facility] Orthopedics and Sports Medicine [address] [place] [address] [place] [address] Geovanna Mason MA from Last 3 [...] on file 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
--- OUTSIDE RECORDS SUMMARY | 2025-02-17 14:48 | XMS_ITS | Clinical Summary ---
Author Organization [facility] Address [address] [place] [address] Care Team Providers Care Hardboard Press Operator Name Role Phone Katlyn Reynolds MD Primary Care Provider [phone] [phone] Source Comments [facility],non-owned Affiliates and Associated Physician Practices is amultiple site organization consisting of ambulatory clinics and hospital sitesin [place], [place], [place] and [place]. This disclosure is being madepursuant to the Care Everywhere program and may not contain all information available regarding this patient. Last updated 18.[employer] Allergies No known active allergies Medications * [...] Comments Blood Pressure 110/58 07/09/2020 11:20 AM COPYRIGHT MANAGER Pulse 88 07/09/2020 11:20 AM COPYRIGHT MANAGER Temperature 36.9 C (98.4 F) 05/03/2018 4:38 PM CDT Respiratory Rate 20 07/09/2020 11:2 0 AM COPYRIGHT MANAGER Oxygen Saturation 99% 07/09/2020 11: 20 AM COPYRIGHT MANAGER Inhaled Oxygen Concentration - - Weight 110.3 kg (243 lb 2.7 oz) 020 11:20 AM COPYRIGHT MANAGER Height 174 cm (5' 8.5) 07/09/2020 11:2 0 AM COPYRIGHT MANAGER Body Mass Index 36.43 07/09/2020 11:20 AM COPYRIGHT MANAGER Plan of Treatment Health Maintenance Due Date [...] complete this topic Insurance [employer] Care Teams Hardboard Press Operator Relationship Specialty Start Date End Date Katlyn Reynolds MD [address] [place] [address] PCP - General Family Medicine 06/24/20
--- OUTSIDE RECORDS SUMMARY | 2025-02-17 14:48 | XMS_ITS | Clinical Summary ---
Author Organization [facility] Address [address] [place] [address] Care Team Providers Care Well Logging Operator Mud Analysis Name Role Phone Navin Reynolds MD Primary Care Provider [phone] [phone] Allergies No known active allergies Medications Vienva [...] Description 01/07/2025 3:10 PM CDT Ancillary Procedure [facility] Imaging at [address] [phone] Acute pain of left knee 01/07/2025 3:05 PM CDT Ancillary Procedure [facility] Imaging at [address] [phone] 01/07/2025 3:00 PM CDT Office Visit [facility] Group Orthopedic and Sports Medicine [address] [place] [phone] Evette Coles PA Chronic pain of left knee (Primary Dx); Inflammation of joint of left knee; BMI 40.0-44.9, adult (HCC) 11/22/2024 Telephone [facility] Medical Group Orthopedics and Sports Medicine [address] [facility] [address], [place] [address] Geovanna Mason MA from Last 3 Months Social History Tobacco Use Types Packs/Day Years Used Date Smoking Tobacco: Never Tobacco Cessation:Counseling Given: Not Answered Comments Unknown Sex and Gender Information Value Date Recorded Sex Assigned at Not on file 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 Joint spaces are maintained. Evette HERRERA [facility] XR PROCEDURES Final Result * XR Pelvis 1 or 2 Views (01/07/2025 3:11 PM CDT) Anatomical Region Laterality Modality Body, Pelvis N/A Digital Radiogra phy Narrative 02/01/2025 8:07 PM CDT Radiographs of the pelvis reviewed interpreted. No acute fractures, destructive osseous lesions, or degenerative changes noted. Evette HERRERA [facility] XR PROCEDURES Final Result from Last 3 Months Insurance [employer] [facility] OOS Care Teams Well Logging Operator Mud Analysis Relationship Specialty Start Date End Date Navin Reynolds MD PCP - General Family Medicine 07/08/22
--- OUTSIDE RECORDS SUMMARY | 2025-02-17 14:48 | XMS_ITS | Clinical Summary ---
Author Organization [facility] Address Formerly [facility] [place] [address] Care Team Providers Care Counter Person Name Role Phone Navin Reynolds MD Primary Care Provider +1- [phone] Allergies No known active allergies Encounters Date Type Department Care Team Description 01/01/2025 6:39 PM CDT - 01/01/2025 10:23 PM CDT Emergency [facility] Emergency Room [id number] [place] [address] [id number] Sharita Miller DO Abdominal Pain Discharge Disposition: [...] 9:25 PM Narrative 01/01/2025 9:31 PM CDT [facility] [address] [place] [address] EXAMINATION: CT ABD+PEL W CON CLINICAL HISTORY: [...] Procedure Note Trenton Esqueda MD - 01/01/2025 [facility] [address] [place] [address] EXAMINATION: CT ABD+PEL W CON CLINICAL HISTORY: [...] By: Trenton Esqueda MD, 01/01/2025 9:[address] [facility] [address] Final Result * COMPREHENSIVE METABOLIC PANEL (01/01/2025 7:00 PM CDT) GLUCOSE 95 70 - 99 MG/DL 01/01/2025 7:22 PM CDT [facility] BUN 11 7 - 18 MG/DL 01/01/2025 7:22 PM T [facility] CREATININE S/P/B 0.80 0.55 - 1.02 MG/DL 01/01/2025 7:22 PM T [facility] SODIUM S/P/B 138 136 - 145 MMOL/L 01/01/2025 7:22 PM T [facility] POTASSIUM S/P/B 3.7 3.5 - 5.1 MMOL/L 01/01/2025 7:22 PM T [facility] CHLORIDE S/P/B 102 100 - 108 MMOL/L 01/01/2025 7:22 PM T [facility] CO2 24.4 21 - 32 MMOL/L 01/01/2025 7:22 PM T [facility] CALCIUM S/P/B 9.4 8.5 - 10.1 MG/DL 01/01/2025 7:22 PM T [facility] BILIRUBIN TOTAL S/P/B 0.5 0.2 - 1.2 MG/DL 01/01/2025 7:22 PM T [facility] TOTAL PROTEIN S/P/B 7.7 6.4 - 8.2 G/DL 01/01/2025 7:22 PM CDT [facility] ALBUMIN S/P/B 3.8 3.4 - 5.0 G/DL 01/01/2025 7:22 PM CDT [facility] AST 17 15 - 37 U/L 01/01/2025 7:22 PM T [facility] ALT 26 14 - 55 U/L 01/01/2025 7:22 PM T [facility] ALKALINE PHOSPHATASE S/P/B 64 50 - 136 U/L 01/01/2025 7:22 PM T [facility] ANION GAP 11.6 5 - 15 MMOL/L 01/01/2025 7:22 PM T [facility] BUN CREATININE RATIO 13.8 6 - 26 01/01/2025 7:22 PM T [facility] A/G RATIO 1.0 1.0 - 2.0 RATIO 01/01/2025 7:22 PM T [facility] GFR ESTIMATE >90 >90 ML/MIN/1.7 3 M2 01/01/2025 7:22 PM T [facility] Comment: NOTE: eGFR is not calculated for patients <18 years of age. This is an estimated GFR calculation using the new CKD EPI creatinine equation without race and so does not require a correction factor for race. This estimated GFR should not be used for calculating drug doses. 01/01/2025 7:00 PM CDT us Sharita Miller DO LABORATORY Final Result [facility] [address] [place] [address], [place] [phone] * (ABNORMAL) CBC W/DIFF AUTOMATED (01/01/2025 7:00 PM CDT) WBC 10.92 4.4 - 11.0 x10'3/uL 01/01/2025 7:07 PM CDT [facility] RBC 5.06 4.50 - 5.10 x10'6/uL 01/01/2025 7:07 PM CDT [facility] HGB 13.2 12.3 - 15.3 G/DL 01/01/2025 7:07 PM T [facility] HCT 40.3 35.9 - 44.6 % 01/01/2025 7:07 PM T [facility] MCV 79.6(L) 80.0 - 96.0 FL 01/01/2025 7:07 PM CDT [facility] MCH 26.1 25.3 - 30.9 PG 01/01/2025 7:07 PM T [facility] MCHC 32.8 31.0 - 34.1 G/DL 01/01/2025 7:07 PM T [facility] RDW 14.6 12.4 - 15.1 % 01/01/2025 7:07 PM T [facility] PLT 278 151 - 353 x10'3/uL 01/01/2025 7:07 PM T [facility] MPV 9.5(L) 9.6 - 12.0 FL 01/01/2025 7:07 PM T [facility] RBC MORPHOLOGY NORMAL 01/01/2025 7:07 PM CDT [facility] PLT MORPH. NORMAL 01/01/2025 7:07 PM T [facility] WBC MORPHOLOGY NORMAL 01/01/2025 7:07 PM T [facility] LYMPHOCYTES % 23.6 15.8 - 45.0 % 01/01/2025 7:07 PM CDT [facility] NEUTROPHILS % 69.7 42.1 - 71.9 % 01/01/2025 7:07 PM CDT [facility] MONOCYTES % 5.4(L) 5.7 - 12.5 % 01/01/2025 7:07 PM CDT [facility] EOSINOPHILS 0.5 0.0 - 5.6 % 01/01/2025 7:07 PM CDT [facility] BASOPHILS 0.3 0.0 - 1.3 % 01/01/2025 7:07 PM CDT [facility] ABS. NEUTROPHILS 7.61(H) 1.40 - 6.00 x10'3/uL 01/01/2025 7:07 PM CDT [facility] IMMATURE GRANS % 0.5 0.0 - 0.5 % 01/01/2025 7:07 PM CDT [facility] ABS. LYMPHOCYTES 2.58 0.80 - 4.70 x10'3/uL 01/01/2025 7:07 PM CDT [facility] 01/01/2025 7:00 PM CDT us Sharita Miller DO LABORATORY Final Result Performing Organization Address City/[facility]/ZIP Co de Phone Number [facility] [address] [place] [address], * LIPASE (01/01/2025 7:00 PM CDT) LIPASE 21 16 - 77 UNITS/L 01/01/2025 7:18 PM CDT [facility] 01/01/2025 7:00 PM CDT us Sharita Miller DO LABORATORY Final Result Performing Organization Address City/[facility]/ZIP Co de Phone Number [facility] [address] [place] [address], [place] [phone] * TEST URINE (01/01/2025 6:50 PM CDT) URINE HCG TEST NEGATIVE NEGATIVE 01/01/2025 7:47 PM CDT [facility] Comment: VERY DILUTE URINE SPECIMENS MAY NOT CONTAIN IT COMMUNICATIONS MANAGER LEVELS OF HCG. IF IS STILL SUSPECTED, A SERUM HCG TEST IS RECOMMENDED. URINE SPECIMEN FROM URETHRA / Unknown 01/01/2025 6:50 PM CDT Sharita Miller DO URINE ORDERABLES Final Result Performing Organization Address [facility] Co de Phone Number [facility] [address] [place] [address], [place] [phone] * (ABNORMAL) URINALYSIS, AUTO, COMPLETE (01/01/2025 6:50 PM CDT) COLOR (U) YELLOW 01/01/2025 7:38 PM CDT [facility] TRANSPARENCY CLEAR 01/01/2025 7:38 PM CDT [facility] SPECIFIC GRAVITY (U) 1.020 1.000 - 1.030 01/01/2025 7:38 PM CDT [facility] U PH 6.0 5.0 - 9.0 01/01/2025 7:38 PM CDT [facility] LEUKOCYTES (U) 2+(A) NEGATIVE 01/01/2025 7:38 PM CDT [facility] NITRITES NEGATIVE NEGATIVE 01/01/2025 7:38 PM CDT [facility] PROTEIN RANDOM (U) 2+(A) NEGATIVE 01/01/2025 7:38 PM CDT [facility] GLUCOSE (U) NEGATIVE NEGATIVE 01/01/2025 7:38 PM CDT [facility] KETONES MG/DL (U) NEGATIVE NEGATIVE 01/01/2025 7:38 PM CDT [facility] BILIRUBIN (U) NEGATIVE NEGATIVE 01/01/2025 7:38 PM CDT [facility] BLOOD (U) 3+(A) NEGATIVE 01/01/2025 7:38 PM CDT [facility] WBC/HPF 10-25 0 - 5 /HPF 01/01/2025 7:38 PM CDT [facility] RBC/HPF 10-25 0 - 5 /HPF 01/01/2025 7:38 PM CDT [facility] EPI/HPF FEW /HPF 01/01/2025 7:38 PM CDT [facility] URINE SPECIMEN OBTAINED BY CLEAN CATCH PROCEDURE / Unknown 01/01/2025 6:50 PM CDT Sharita Miller DO URINE ORDERABLES Final Result Performing Organization Address City/State/[facility] Co de Phone Number [facility] [address] [place] [id number], [place] [phone] from Last 3 Months Insurance [employer] Care Teams Counter Person Relationship Specialty Start Date End Date Navin Reynolds MD [address] [facility][NOTE 3] [address] [id number] PCP - General FAMILY PRACTICE 01/01/25
[2025-02-17 17:54] LABS: Beta HCG Quantitative 893.54 mIU/ML
== END 2025-02-17 14:46 | disposition home or self-care (01) ==
PROVIDERS: PCP Family Medicine; Visit Provider Family Medicine
DX: N91.2 Amenorrhea, unspecified (principal)
CPT/HCPCS: 36415; 84702

== ENCOUNTER 2025-03-26 15:14 | Outpatient (CLI) | payer OTHER, SELFPAY ==
--- NOTE | ~2025-03-26 | US_ITS ---
EXAMINATION: US OB <=14 wk fetus w TV DATE: 03/26/2025 15:42 INDICATION: Amenorrhea TECHNIQUE: Real-time transabdominal and transvaginal obstetric ultrasound. FINDINGS: No prior studies for comparison. The uterus measures 10.7 x 6.7 x 5.9 cm. There is an intrauterine gestational sac, with pole identified. The crown rump length measures 3.3 cm, which correlates with a estimated gestational age of 10 weeks 2 days. heart tones are identified measuring 163. There is a corpus luteal cyst of the left ovary measuring 3.2 cm. IMPRESSION: 1. SL IUP with an EGA of 10 weeks, 2 days (EDC by current ultrasound of 10/20/2025). Reviewed, dictated and finalized at location A. IMPRESSION: 1. SL IUP with an EGA of 10 weeks, 2 days (EDC by current ultrasound of 10/21/19 26).
== END 2025-03-26 15:15 | disposition home or self-care (01) ==
LOC: GOSHIMG 15:16
PROVIDERS: PCP Family Medicine; Visit Provider Nurse Practitioner Obstetrics & Gynecology
DX: N91.2 Amenorrhea, unspecified (principal)
CPT/HCPCS: 76801; 76817

== ENCOUNTER 2025-04-02 15:30 | Outpatient (CLI) | payer OTHER, SELFPAY ==
--- OUTSIDE RECORDS SUMMARY | 2025-04-02 15:33 | XMS_ITS | Clinical Summary ---
Author Organization [facility] Address [address] [place] [address] Care Team Providers Care Snuff Drier Name Role Phone Navin Reynolds MD Primary Care Provider +1 -[phone] Allergies No known active allergies Medications Vienva [...] Description 01/07/2025 3:10 PM CDT Ancillary Procedure [facility] at [address] [address] Acute pain of left knee 01/07/2025 3:05 PM CDT Ancillary Procedure [facility] Imaging at [address] [address] 01/07/2025 3:00 PM CDT Office Visit [facility] Orthopedic and Sports Medicine [address] [place] [address] Evette Coles PA Chronic pain of left knee (Primary Dx); Inflammation of joint of left knee; BMI 40.0-44.9, adult (HCC) from Last 3 Months Social History Tobacco Use Types Packs/Day Years Used Date Smoking Tobacco: Never Tobacco Cessation:Counseling Given: Not Answered Comments Unknown Sex and Gender Information Value Date Recorded Sex Assigned at Not on file Legal Sex Female 1:36 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 Gender Identity Not on file Sexual Orientation [...] 5 season) 2024 07/20/2021, 06/02/2021 Influenza Vaccine (#1) 2025 0, 06/01/2018 Meningococcal Vaccine Aged Out No jigar [...] Final Result from Last 3 Months Insurance [place] [employer] OOS Member Subscriber Plan / Payer (Ef fective 2020-Present) Name:Ni Rodriguez Relation to Subscriber:Child Name:MICHAELNARGIS Date of :1969 (Home) Address: [address] [place] [address] Payer ID:[id number] (NAIC) Type:[facility] Address: [facility] [id number] [place] [id number] [facility] OOS Care Teams Snuff Drier Relationship Specialty Start Date End Date Navin Reynolds MD PCP - General Family Medicine 07/08/22
--- OUTSIDE RECORDS SUMMARY | 2025-04-02 15:33 | XMS_ITS | Patient Health Record ---
Author Organization [facility] [employer] Address [address] [place] [address] Care Team Providers Care Repairer Shoe Sticks Name Role Phone Jose Miguel Yoon Unavailable [phone] Umesh Story Unavailable [phone] Allergies No Known Allergies Reason For Referral No Information Medications Medication SIG (Take, Route, Frequency, Duration) Notes Start Date End Date Status Diclofenac Sodium 2.5 % Cream as directed Externally Activ e ProAir HFA 108 (90 Base) MCG/ACT Aerosol Solution Inhalation 12/12/2023 Act zane traZODone HCl 50 MG Tablet 1 tablet at bedtime Oral Once a day; Duration: 30 days As needed 12/12/2023 Active Abilify Maintena 400 MG Prefilled Syringe 400mg Intramuscular once monthly; Duration: 30 days Activ e ARIPiprazole 10 MG Tablet 1 tablet Orall y Once a day; Duration: 14 days 07/09/2024 Active Social History Tobacco Use: Social History Observation Description Date Details (start date - stop date) Current Smoker 01/06/2023 - NA Sex Assigned At : Social History Observation Description Sex Assigned At Female Social History Miscellaneous: Social Info Question Answer Notes Advance Care Planning Are you your own decision-maker Yes Do you have Power of Recruiting Coordinator for Health or Medi [facility]? No Drug/Alcohol: Social Info Question Answer Notes AUDIT-C (Standard) Did you have a drink containing alcohol in the past year? Yes Points 1 How often did you have six or more drinks on one occasion in the past year? Never (0 point) How many drinks did you have on a typical day when you were drinking in the past year? 1 or 2 drinks (0 point) How often did you have a drink containing alcohol in the past year? Monthly or less (1 point) Tobacco Use: Social Info Question Answer Notes Tobacco Control (Standard) Tobacco use: Current every day smoker When did you start smoking? 01/06/2023 When did you start smoking? 02/04/2023 How often do you smoke cigarettes? Every day How soon after you wake up do you smoke your first cigarette? Within 5 minutes Are you interested in quitting? Thinking about quitting Additional Details Category Social Info Options Details Migrated Social History Migrated Social History Alcohol Intake: None 02/23/2023,Tobacco Years: Former smoker 06/23/2023 Problems Problem Type SNOMED Code ICD Code Onset Dates Problem Status W/U Status Risk Notes Problem Mild recurrent major depression (79310914) Major depressive disorder, recurrent, mild (F33.0) 4 Active confirmed Problem Severe recurrent major depression without psychotic features (88885666) Major depressive disorder, recurrent severe without psychotic features (F33.2) Active confirmed Problem Generalized anxiety disorder (24733558) Generalized anxiety disorder (F41.1) 4 Active confirmed Problem Tobacco user (795047367) Other tobacco product nicotine dependence, uncomplicated (F17.290) Active confirmed Vital Signs Heart Rate 79 /min 10/01/2024 Height-cm 175.26 cm 10/01/2024 Blood pressure diastolic 73 mm Hg 10/01/2024 Weight-kg 130.64 kg 10/01/2024 BMI Percentile 98.6 % 08/09/2024 Height 69.00 in 10/01/2024 Blood pressure systolic 115 mm Hg 10/01/2024 Weight 288 lbs 10/01/2024 BMI 42.53 kg/m2 10/01/2024 Encounters Encounter Location Date Provider Diagnosis [facility] [employer] [facility] [address] [place] [address] 04/12/2024 Umesh Story Depression, major, recurrent, mild F33.0 [facility] [employer] [facility] [address] [place] [address] 05/14/2024 Umesh Story [facility] [employer] [facility] [address] [place] [address] 05/14/2024 Jose Miguel Yoon Generalized anxiety disorder F41.1 ; Major depressive disorder, recurrent, mild F33.0 and Other tobacco product nicotine dependence, uncomplicated F17.290 [facility], [facility] [address] [place] [address] 07/09/2024 Jose Miguel Yoon Generalized anxiety disorder F41.1 ; Other tobacco product nicotine dependence, uncomplicated F17.290 and Major depressive disorder, recurrent severe without psychotic features F33.2 [facility], [facility] [address] [place] [address] 08/09/2024 Jose Miguel Yoon Generalized anxiety disorder F41.1 ; Other tobacco product nicotine dependence, uncomplicated F17.290 and Major depressive disorder, recurrent severe without psychotic features F33.2 [facility], [facility] [address] [place] [address] 08/30/2024 Jose Miguel Yoon Generalized anxiety disorder F41.1 ; Other tobacco product nicotine dependence, uncomplicated F17.290 and Major depressive disorder, recurrent severe without psychotic features F33.2 [facility], [facility] [address] [place] [address] 10/01/2024 Jose Miguel Yoon Generalized anxiety disorder F41.1 ; Other tobacco product nicotine dependence, uncomplicated F17.290 and Major depressive disorder, recurrent severe without psychotic features F33.2 [facility], [facility] [address] [place] [address] 04/09/2024 Jose Miugel Yoon Major depressive disorder, recurrent severe without psychotic features F33.2 [facility], [facility] [address] [place] [address] 05/10/[address] [facility], [facility] [address] [place] [address] 07/08/[address] [facility], [facility] [address] [place] [address] 08/27/[address] [facility], [facility] [address] [place] [address] 08/28/[address] [facility], [facility] [address] [place] [address] 08/30/[address] [facility], [facility] [address] [place] [address] 11/28/2024 Jose Miguel Yoon [facility] [employer] [facility] [address] [place] [address] 10/07/2024 Jose Miguel Yoon Assessments Encounter Date Diagnosis (ICD Code) Assessment Notes Treatment Notes Treatment Clinical Notes Section Notes 04/09/2024 Major depressive disorder, recurrent severe without [...] Lamb I have examined the patient with FIELD MACHINIST Student. It reflects today's encounter and my [...] depressive symptoms, and progress in smoking cessation. 05/14/2024 Major depressive disorder, recurrent, mild (ICD-10 - F33.0) MDD -Take Abilify 10mg daily for two weeks -Take injection today of Abilify Maintena 400mg once a month Anxiety -supportive care Insomnia -Continue trazodone 50mg at bedtime. Pt Seen by PMHNP student Farzaneh Lamb I have examined the patient with FIELD MACHINIST Student. It reflects today's encounter and my [...] Lamb I have examined the patient with FIELD MACHINIST Student. It reflects today's encounter and my [...] for extended absence from the [employer] class due to depression. - Write a [...] Plan: - Instruct the patient to visit [employer] for information on the patient assistance program. - Provide a sample of Abilify injection today. - Send the Abilify injection prescription to [facility], who are known for handling prior authorizations well. 4. Abilify maintenance: - Patient's last injection was on August 09 and is overdue for the next injection. Plan: - Administer Abilify injection today. - Prescribe Abilify 10 mg orally for the next 14 days while waiting for the injection to take effect. - Send the oral prescription to [facility]. 5. Follow-up: - Schedule a follow-up appointment in one month. Plan Of Treatment No Information Insurance Providers Payer Name Payer Address Payer Phone Subscriber Number Group Number Insured Name Patient Relationship to Insured Coverage Start Date Coverage End Date A[employer] [address] [place] [address] [id number] NARGIS AGUILLON Child - Insured has Financial [...] Surgical History Surgery Date(Month/Year) Removal of gallbladder (03753) 2
--- OUTSIDE RECORDS SUMMARY | 2025-04-02 15:33 | XMS_ITS | Clinical Summary ---
Author Organization [facility] [employer] Address [address] [facility] [place] [address] Care Team Providers Care Cnc Router Operator Name Role Phone Katlyn Reynolds MD Primary Care Provider +1 -[phone] Source Comments [facility] [employer],non-owned Affiliates and Associated Physician Practices is amultiple site organization consisting of ambulatory clinics and hospital sitesin [place], [place], [place] and [place]. This disclosure is being madepursuant to the Care Everywhere program and may not contain all information available regarding this patient. Last updated 18.[employer] Allergies No known active allergies Medications * [...] Comments Blood Pressure 110/58 07/09/2020 11:20 AM SODA TESTER Pulse 88 07/09/2020 11:20 AM SODA TESTER Temperature 36.9 C (98.4 F) 05/03/2018 4:38 PM CDT Respiratory Rate 20 07/09/2020 11:2 0 AM SODA TESTER Oxygen Saturation 99% 07/09/2020 11: 20 AM SODA TESTER Inhaled Oxygen Concentration - - Weight 110.3 kg (243 lb 2.7 oz) 020 11:20 AM SODA TESTER Height 174 cm (5' 8.5) 07/09/2020 11:2 0 AM SODA TESTER Body Mass Index 36.43 07/09/2020 11:20 AM SODA TESTER Plan of Treatment Health Maintenance Due Date [...] complete this topic Insurance [employer] Care Teams Cnc Router Operator Relationship Specialty Start Date End Date Katlyn Reynolds MD [address] [place] [address] PCP - General Family Medicine 06/24/20
[2025-04-02 16:50] LABS: Alanine Aminotransferase 39 U/L (6-35); Albumin Level 3.9 g/dL (3.5-5.1); Alkaline Phosphatase 55 U/L (38-126); Aspartate Amino Transferase 35 U/L (14-36); Bilirubin,Total 0.3 mg/dL (0.2-1.3); Total Protein 7.0 g/dL (6.3-8.2)
== END 2025-04-02 15:31 | disposition home or self-care (01) ==
LOC: ANHGOSHLAB 15:31
PROVIDERS: PCP Family Medicine; Visit Provider Nurse Practitioner Obstetrics & Gynecology
DX: O99.719 Diseases of the skin and subcutaneous tissue complicating pregnancy, unspecified trimester (principal); L29.9 Pruritus, unspecified; Z3A.00 Weeks of gestation of pregnancy not specified
CPT/HCPCS: 36415; 80076

== ENCOUNTER 2025-04-10 23:07 | Emergency (ER) | payer OTHER, SELFPAY ==
--- OUTSIDE RECORDS SUMMARY | 2022-08-29 10:30 | XMS_ITS | Continuity of Care Document ---
Author Organization [facility] Address [address] [place] [address] Phone Care Team Providers Care Manager Content Name Role Phone Jamal Cohn Unavailable Unavailable Procedures Procedure Date Therapeutic Activities Neuromuscular Re-Ed Therapeutic Exercise Therapeutic Activities Neuromuscular Re-Ed Therapeutic Exercise Manual Therapy Therapeutic Activities Neuromuscular Re-Ed Therapeutic Exercise Manual Therapy Progress Note Therapeutic Activities Neuromuscular Re-Ed Therapeutic Exercise Manual Therapy Therapeutic Activities Neuromuscular Re-Ed Therapeutic Exercise Manual Therapy Therapeutic Activities Neuromuscular Re-Ed Therapeutic Exercise Manual Therapy Therapeutic Activities Neuromuscular Re-Ed Manual Therapy Therapeutic Exercise Hot or Cold Pack PT Evaluation Moderate Complexity Therapeutic Activities Neuromuscular Re-Ed Therapeutic Exercise Manual Therapy Advance Directives Directive Yes / No Effective Date File Name No Information Encounters Encounter Description Practice Location Reason(s) For Visit Diagnoses Date Provider Providers Copied on Encounter [facility] [address], [id number], tel:[phone] [place] No Information 3 Muehl Jamal. [address] [place] [address], [facility] [address], [place], [facility], . tel: [phone] Referring Provider: Kar Smith [facility] [place], [address]. tel:[phone] [place] [address], [id number], tel:[phone] [place] No Information 3 Muehl Jamal. [address] [place] [address], [facility] [address], [place], [place], [facility], [place]. tel: [phone] Referring Provider: Kar Smith [address] [place] [address] [place], [address]. tel:[phone] [facility] [address], [id number], [place] tel:[phone] [place] No Information 3 Muehl Jamal. [address] [place] [address], [facility] 105, [place], [address], [place]. tel:[phone] Referring Provider: Sanjeev Goldsmith [facility] [place], [address]. tel:[phone] [facility] [address], [id number], [place] tel:[phone] [place] No Information 3 Muehl Jamal. [address] [place] [address], [address], [place], [address], [place]. tel:[phone] Referring Provider: Sanjeev Goldsmith [facility] [place], [address]. tel:[phone], [id number], tel:[phone] [place] No Information 3 Muehl Jamal. [address] [place] [address], [address], [facility], . tel: [phone] Referring Provider: Sanjeev Goldsmith [facility] [address] [place], [facility]. tel:[phone] [place] [address], [id number], tel:[phone] [place] No Information 3 Muehl Jamal. [address] [place] [address], [address], [facility], . tel: [phone] Referring Provider: Sanjeev Goldsmith [facility] [address] [place], [facility]. tel:[phone] [place] [address], [id number], tel:[phone] [place] No Information 2 Muehl Jamal. [address] [place] [address], [address], [facility], . tel: [phone] Referring Provider: Sanjeev Goldsmith [facility] [place], [address]. tel:[phone] [place] [address], [id number], tel:[phone] [place] No Information 2 Muehl Jamal. [address] [place] [address], [facility] [address], [place], [facility], . tel: [phone] Referring Provider: Sanjeev Goldsmith [facility] [place], [address]. tel:[phone] Family History Family Member Type Diagnosis Age At Onset No Information Payers Payer name Insurance type Covered libertarian ID Authoriza tion(s) [facility] [id number] Social History Type Description Quantity Date Captured Comments Sex Female Smoking Status No Information Chief Complaint And Reason For Visit No Information Reason For Referral Reason For Referral No Information Plan Of Treatment Date Type Action Status Referral Ordered: Referrals: Specialist. Evaluate and Treat (related to Adjustment disorder with depressed mood) ordered Referral Ordered: Depression: Depression management program timeframe: 1 Day. (related to Depression) ordered Referral Ordered: Referrals: Specialist. Evaluate and Treat (related to Adjustment disorder with depressed mood) ordered Referral Ordered: Clinical Psychology (related to Depression) ordered History Of Present Illness Encounter Date Complaint History Of Prese nt Illness No Information Functional Status Date Functional Assessmen t No Information Instructions Date Instruction Additional Infor mation No Information Assessments Type Assessment Date No Information Patient Care Teams Name Effective Dates (start - stop) Status Members No Information
--- OUTSIDE RECORDS SUMMARY | 2022-08-29 10:30 | XMS_ITS | Continuity of Care Document ---
Author Organization [facility] Address [address] [place] [address] Phone Care Team Providers Care Plaster Tender Name Role Phone Jamal Cohn Unavailable Unavailable [...] Pack PT Evaluation Moderate Complexity Therapeutic Activities Therapeutic Exercise Neuromuscular Re-Ed Manual Therapy Advance Directives Directive Yes / No Effective Date File Name No Information Encounters Encounter Description Practice Location Reason(s) For Visit Diagnoses Date Provider Providers Copied on Encounter [facility] [address], [id number], tel:[phone] [place] No Information 3 Muehl Jamal. [address] [place] [address], [facility] [address], [place], [facility], . tel: [phone] Referring Provider: Kar Smith [facility] [place], [address]. tel:[phone] [place] [address], [id number], tel:[phone] [place] No Information 3 Muehl Jamal. [address] [place] [address], [facility] 105, [place], [place], [facility], [place]. tel: [phone] Referring Provider: Kar mSith [address] [place] [address] [place], [address]. tel:[phone] [facility] [address], [id number], [place] tel:[phone] [place] No Information 3 Muehl Jamal. [address] [place] [address], [facility] 105, [place], [address], [place]. tel:[phone] Referring Provider: Sanjeev Goldsmith [facility] [place], [address]. tel:[phone] [facility] [address], [id number], [place] tel:[phone] [place] No Information 3 Muehl Jamal. [address] [place] [address], [address], [place], [address], [place]. tel:[phone] Referring Provider: Sanjeev Goldsmith [facility] [place], [address]. tel:[phone], [id number], tel:[phone] [place] No Information 3 Muehl Jamal. [address] [place] [address], [address], [facility], . tel: [phone] Referring Provider: Sanjeev Goldsmith [facility] [address] [place], [facility]. tel:[phone] [place] [address], [id number], tel:[phone] [place] No Information 3 Muehl Jamal. [address] [place] [address], [address], [facility], . tel: [phone] Referring Provider: Sanjeev Goldsmith [facility] [address] [place], [facility]. tel:[phone] [place] [address], [id number], tel:[phone] [place] No Information 2 Muehl Jamal. [address] [place] [address], [address], [facility], . tel: [phone] Referring Provider: Sanjeev Goldsmith [facility] [place], [address]. tel:[phone] [place] [address], [id number], tel:[phone] [place] No Information 2 Muehl Jamal. [address] [place] [address], [facility] [address], [place], [facility], . tel: [phone] Referring Provider: Sanjeev Goldsmith [facility] [place], [address]. tel:[phone] Family History Family Member Type Diagnosis Age At Onset No Information Payers Payer name Insurance type Covered green party ID Authoriza tion(s) [facility] [id number] Social History Type Description Quantity Date Captured [...]
[2025-04-10 23:08] VITALS: BP 141/78; PULSE 81; RESP 18; TEMP 36.7; O2SAT 98
--- OUTSIDE RECORDS SUMMARY | 2025-04-10 23:10 | XMS_ITS | Clinical Summary ---
Author Organization 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
--- OUTSIDE RECORDS SUMMARY | 2025-04-10 23:10 | XMS_ITS | Clinical Summary ---
Author Organization [facility] [employer] Address [address] [facility] [place] [address] Care Team Providers Care Extruder Operator Vertical Name Role Phone Katlyn Reynolds MD Primary Care Provider +1 -[phone] Source Comments [facility] [employer],non-owned Affiliates and Associated Physician Practices is amultiple site organization consisting of ambulatory clinics and hospital sitesin [place], [place], [place] and [place]. This disclosure is being madepursuant to the Care Everywhere program and may not contain all information available regarding this patient. Last updated 18.[facility] [employer] Allergies No known active allergies Medications * [...] Comments Blood Pressure 110/58 07/09/2020 11:20 AM GRAVITY PROSPECTOR Pulse 88 07/09/2020 11:20 AM GRAVITY PROSPECTOR Temperature 36.9 C (98.4 F) 05/03/2018 4:38 PM CDT Respiratory Rate 20 07/09/2020 11:2 0 AM GRAVITY PROSPECTOR Oxygen Saturation 99% 07/09/2020 11: 20 AM GRAVITY PROSPECTOR Inhaled Oxygen Concentration - - Weight 110.3 kg (243 lb 2.7 oz) 020 11:20 AM GRAVITY PROSPECTOR Height 174 cm (5' 8.5) 07/09/2020 11:2 0 AM GRAVITY PROSPECTOR Body Mass Index 36.43 07/09/2020 11:20 AM GRAVITY PROSPECTOR Plan of Treatment Health Maintenance Due Date [...] complete this topic Insurance KRIS Care Teams Extruder Operator Vertical Relationship Specialty Start Date End Date Katlyn Reynolds MD [address] [place] [address] PCP - General Family Medicine 06/24/20
--- OUTSIDE RECORDS SUMMARY | 2025-04-10 23:10 | XMS_ITS | Clinical Summary ---
Author Organization [facility] Address [address] [place] [address] Care Team Providers Care Cow Washer Name Role Phone Navin Reynolds MD Primary Care Provider +1- [phone] Allergies No known active allergies Social History Tobacco Use Types Packs/Day Years [...] patient's age to complete this topic Insurance [employer] Care Teams Cow Washer Relationship Specialty Start Date End Date Navin Reynolds MD [facility] [address] [address] PCP - General FAMILY PRACTICE 01/01/25
[2025-04-11 00:48] VITALS: BP 129/80; PULSE 83; RESP 16; O2SAT 99
--- OUTSIDE RECORDS SUMMARY | 2025-04-11 00:49 | XMS_ITS | Clinical Summary ---
Author Organization [facility] Address [address] [place] [address] Care Team Providers Care Pet Walker Name Role Phone Navin Reynolds MD Primary Care Provider [phone] [phone] Allergies No known active allergies Medications Vienva [...] on file Legal Sex Female 1:36 PM BLADE ALIGNER Gender Identity Not on file Sexual Orientation [...] patient's age to complete this topic Insurance [employer] OOS [facility] HMO [employer] ACCESS OOS Care Teams Pet Walker Relationship Specialty Start Date End Date Navin Reynolds MD PCP - General Family Medicine 07/08/22
--- OUTSIDE RECORDS SUMMARY | 2025-04-11 00:49 | XMS_ITS | Clinical Summary ---
Author Organization [facility] Address [address] [place] [address] Care Team Providers Care Travel Physical Therapist Name Role Phone Katlyn Reynolds MD Primary Care Provider [phone] [phone] Source Comments [facility],non-owned Affiliates and Associated Physician Practices is amultiple site organization consisting of ambulatory clinics and hospital sitesin [place], [place], [place] and [place]. This disclosure is being madepursuant to the Care Everywhere program and may not contain all information available regarding this patient. Last updated 18.[facility] Allergies No known active allergies Medications * [...] Comments Blood Pressure 110/58 07/09/2020 11:20 AM INDUSTRIAL SERVICER Pulse 88 07/09/2020 11:20 AM INDUSTRIAL SERVICER Temperature 36.9 C (98.4 F) 05/03/2018 4:38 PM CDT Respiratory Rate 20 07/09/2020 11:2 0 AM INDUSTRIAL SERVICER Oxygen Saturation 99% 07/09/2020 11: 20 AM INDUSTRIAL SERVICER Inhaled Oxygen Concentration - - Weight 110.3 kg (243 lb 2.7 oz) 020 11:20 AM INDUSTRIAL SERVICER Height 174 cm (5' 8.5) 07/09/2020 11:2 0 AM INDUSTRIAL SERVICER Body Mass Index 36.43 07/09/2020 11:20 AM INDUSTRIAL SERVICER Plan of Treatment Health Maintenance Due Date [...] complete this topic Insurance [employer] Care Teams Travel Physical Therapist Relationship Specialty Start Date End Date Katlyn Reynolds MD [address] [place] [address] PCP - General Family Medicine 06/24/20
--- OUTSIDE RECORDS SUMMARY | 2025-04-11 00:49 | XMS_ITS | Patient Health Record ---
Author Organization [facility] Address [address] [place] [address] Care Team Providers Care Weight Reduction Specialist Name Role Phone Jose Miguel Yoon Unavailable [phone] Umesh Story Unavailable [phone] Allergies No Known Allergies Reason For Referral [...] decision-maker Yes Do you have Power of Convention Manager for Health or Medi [facility]? No Drug/Alcohol: Social Info Question Answer Notes [...] Risk Notes Problem Mild recurrent major depression (38857680) Major depressive disorder, recurrent, mild (F33.0) 4 Active confirmed Problem Severe recurrent major depression without psychotic features (07819194) Major depressive disorder, recurrent severe without psychotic features (F33.2) Active confirmed Problem Generalized anxiety disorder (31447130) Generalized anxiety disorder (F41.1) 4 Active confirmed Problem Tobacco user (297057588) Other tobacco product nicotine dependence, uncomplicated (F17.290) Active confirmed Vital Signs Heart Rate 79 /min 10/01/2024 Height-cm 175.26 cm 10/01/2024 Blood pressure diastolic 73 mm Hg 10/01/2024 Weight-kg 130.64 kg 10/01/2024 BMI Percentile 98.6 % 08/09/2024 Height 69.00 in 10/01/2024 Blood pressure systolic 115 mm Hg 10/01/2024 Weight 288 lbs 10/01/2024 BMI 42.53 kg/m2 10/01/2024 Encounters Encounter Location Date Provider Diagnosis [facility] [employer] [facility] [address] [place] [address] 04/12/2024 Umesh Story Depression, major, recurrent, mild F33.0 [facility] [employer] [facility] [address] [place] [address] 05/14/2024 Umesh Story [facility] [email or web address] [facility] [address] [place] [address] 05/14/2024 Jose Miguel Yoon Generalized anxiety disorder F41.1 ; Major depressive disorder, recurrent, mild F33.0 and Other tobacco product nicotine dependence, uncomplicated F17.290 [facility], [facility] [address] [place] [address] 07/09/2024 Jose Miguel Yoon Generalized anxiety disorder F41.1 ; Other tobacco product nicotine dependence, uncomplicated F17.290 and Major depressive disorder, recurrent severe without psychotic features F33.2 [facility], [facility] [address] [place] [address] 08/09/2024 Jose Miguel Yoon Generalized anxiety disorder F41.1 ; Other tobacco product nicotine dependence, uncomplicated F17.290 and Major depressive disorder, recurrent severe without psychotic features F33.2 [facility], [facility] [address] [place] [address] 08/30/2024 Jose Miguel Yoon Generalized anxiety disorder F41.1 ; Other tobacco product nicotine dependence, uncomplicated F17.290 and Major depressive disorder, recurrent severe without psychotic features F33.2 [facility], [facility] [address] [place] [address] 10/01/2024 Jose Miguel Yoon Generalized anxiety disorder F41.1 ; Other tobacco product nicotine dependence, uncomplicated F17.290 and Major depressive disorder, recurrent severe without psychotic features F33.2 [facility], [facility] [address] [place] [address] 05/10/2024 Jose Miguel Yoon [facility], [facility] [address] [place] [address] 07/08/2024 Jose Miguel Yoon [facility], [facility] [address] [place] [address] 08/27/2024 [facility] [address] [place] [address] 08/28/2024 [facility] [address] [place] [address] 08/30/2024 [facility], [facility] [address] [place] [address] 11/28/2024 Jose Miguel Yoon [facility], [facility] [address] [place] [address] 10/07/2024 Jose Miguel Yoon Assessments Encounter Date Diagnosis (ICD Code) Assessment Notes Treatment Notes Treatment Clinical Notes Section Notes 10/01/2024 Generalized anxiety disorder (ICD-10 - F41.1) 08/30/2024 Generalized anxiety disorder (ICD-10 - F41.1) 08/09/2024 Generalized anxiety disorder (ICD-10 - F41.1) [...] patient's progress and response to treatment. 07/09/2024 Generalized anxiety disorder (ICD-10 - F41.1) [...] symptoms, and progress in smoking cessation. 05/14/2024 Generalized anxiety disorder (ICD-10 - F41.1) MDD -Take Abilify 10mg daily for two weeks -Take injection today of Abilify Maintena 400mg once a month Anxiety -supportive care Insomnia -Continue trazodone 50mg at bedtime. Pt Seen by PMHNP student Farzaneh Lamb I have examined the patient with FILLER BLOCK INSERTER REMOVER Student. It reflects today's encounter and my [...] the habit of vaping in the car. 04/12/2024 Depression, major, recurrent, mild (ICD-10 - F33.0) 07/09/2024 Other tobacco product nicotine dependence, uncomplicated [...] at bedtime. Pt Seen by PMHNP student aFrzaneh Lamb I have examined the patient with FILLER BLOCK INSERTER REMOVER Student. It reflects today's encounter and my [...] the habit of vaping in the car. 08/09/2024 Other tobacco product nicotine dependence, uncomplicated [...] patient's progress and response to treatment. 08/30/2024 Other tobacco product nicotine dependence, uncomplicated (ICD-10 - F17.290) 10/01/2024 Other tobacco product nicotine dependence, uncomplicated (ICD-10 - F17.290) 08/30/2024 Major depressive disorder, recurrent severe without psychotic features (ICD-10 - F33.2) Last abilify maintena 400mg injection given 08/08/24 08/09/2024 Major depressive disorder, recurrent severe without [...] patient's progress and response to treatment. 07/09/2024 Major depressive disorder, recurrent severe without [...] symptoms, and progress in smoking cessation. 05/14/2024 Other tobacco product nicotine dependence, uncomplicated (ICD-10 - F17.290) MDD -Take Abilify 10mg daily for two weeks -Take injection today of Abilify Maintena 400mg once a month Anxiety -supportive care Insomnia -Continue trazodone 50mg at bedtime. Pt Seen by PMHNP student Farzaneh Lamb I have examined the patient with FILLER BLOCK INSERTER REMOVER Student. It reflects today's encounter and my [...] the habit of vaping in the car. 10/01/2024 Major depressive disorder, recurrent severe without [...] Plan: - Instruct the patient to visit [employer] for information on the patient assistance program. - Provide a sample of Abilify injection today. - Send the Abilify injection prescription to [facility], who are known for handling prior authorizations well. 4. Abilify maintenance: - Patient's last injection was on August 09 and is overdue for the next injection. Plan: - Administer Abilify injection today. - Prescribe Abilify 10 mg orally for the next 14 days while waiting for the injection to take effect. - Send the oral prescription to [facility]. 5. Follow-up: - Schedule a follow-up appointment in one month. Plan Of Treatment No Information Insurance Providers Payer Name Payer Address Payer Phone Subscriber Number Group Number Insured Name Patient Relationship to Insured Coverage Start Date Coverage End Date [employer] [address] DEDE BRASHER [phone] [id number] 01 NATALIE AGUILLONE Trey Child - Insured has Financial Responsibility Medications [...] Surgical History Surgery Date(Month/Year) Removal of gallbladder (97972) 2
--- OUTSIDE RECORDS SUMMARY | 2025-04-11 00:49 | XMS_ITS | Clinical Summary ---
Author Organization [facility] Address [address] [place] [address] Care Team Providers Care Dean Of Chapel Name Role Phone Navin Reynolds MD Primary Care Provider [phone]- [phone] Allergies No known active allergies Social History [...] complete this topic Insurance [employer] Care Teams Dean Of Chapel Relationship Specialty Start Date End Date Navin Reynolds MD [facility] [address] [address] PCP - General FAMILY PRACTICE 01/01/25
[2025-04-11] MEDS: SODIUM CHLORIDE 0.9% IV 1,000 ML 999 ML IV CONT (01:07)
[2025-04-11 01:12] LABS: Hematocrit 38.8 % (37.0-47.0); Hemoglobin 12.7 g/dL (12.0-15.0); Immature Granulocyte Percent A 0.3 % (0-0.5); Lymphocytes Absolute Auto 2.56 K/mm3 (0.9-3.2); Mean Corpuscular HGB Conc 32.7 g/dl (32-36); Mean Corpuscular Hemoglobin 26.8 pg (26-34); Mean Corpuscular Volume 81.9 fl (80-100); Nucleated Red Blood Cells Absolute Auto 0.000 K/mm3 (0.0-0.012); Nucleated Red Blood Cells Perc 0.0 % (0.0-0.2); Platelet Count Result 244 k/mm3 (150-375); Red Blood Count 4.74 M/mm3 (4.2-5.4); White Blood Count 10.1 K/mm3 (4.5-10.0)
--- NOTE | 2025-04-11 01:19 | ED.GENADULT ---
HPI - General Adult General Chief complaint: Nausea/Vomiting/Diarrhea Stated complaint: 12 wks , n/v Time Seen by Provider: 04/11/25 00:37 History of Present Illness HPI narrative: Patient is a 19-year-old female who presents the emergency department this evening complaining of nausea and vomiting. She follows up with Dr. Bergman and is approximately 12 weeks . Patient states this is her 1st . She does have Zofran at home but has not been able to keep it down. States that she has and to eat but feels as though everything she tries to eat or drink does come back up. Denies any abdominal pain, vaginal bleeding or discharge. No additional symptoms or concerns at this time. Related Data Home Medications ?Medication ?Instructions ?Recorded ?Confirmed ?Last Taken ?Type vitamins 30 30 mg iron-10 cap PO 03/07/25 04/08/25 Unknown History mg iron-folic acid 1 mg-om3 capsule pyridoxine (vitamin B6) 50 mg 50 mg PO DAILY 04/08/25 04/08/25 Unknown History capsule (Vitamin B-6) Allergies Allergy/AdvReac Type Severity Reaction Status Date / Time No Known Allergies Allergy Verified 04/08/25 10:52 Review of Systems Review of Systems: All systems are reviewed and are negative unless stated otherwise in the HPI. PMFSH Past Medical History Medical History Arthritis Hepatic steatosis Rectal bleeding Hemorrhoids Vomiting GERD (gastroesophageal reflux disease) Irritable bowel syndrome with diarrhea COVID Choledocholithiasis with chronic cholecystitis Nausea and vomiting in adult RUQ pain Elevated liver enzymes Posterior tibial tendinitis of right lower extremity Eczema Sleep disorder Anxiety Abdominal pain ARLET (obstructive sleep apnea) Pneumonia SOB (shortness of breath) on exertion History of dental problems Dizziness Chronic headaches Surgical History Surgical History Hx of endoscopic retrograde cholangiopancreatography Hx laparoscopic cholecystectomy 06/23/22 Family History Family History Father Hypertension Family history of elevated blood lipids Asthma Diabetes mellitus Mother Depression Diabetes mellitus Grandparent Diabetes mellitus Depression Leukemia Uterine cancer Other Heart disease History of leukemia Social History Social History Smoking status: Never smoker Alcohol intake: never Substance use: never Substance use type: does not use Lack of Transportation: No Lack of Food: Never True Current Housing: I Have Housing Concerned About Future Housing: No Difficulty Paying Gas/Electric Bills: No Difficulty Paying for Meds: No Currently Unemployed: No Education: High School Diploma/GED Difficulty w/ Childcare or Family Care: No Living arrangements: with family Occupation/Education: student Gender identity (if verbalized by the patient): Female Spiritual care concerns: No Exam Narrative: General: Alert, awake, afebrile, in no acute distress. HEENT: PERRL, no rhinorrhea, no post nasal drip, oropharynx clear. Neck: Trachea midline, no JVD, no lymphadenopathy. Cardiovascular: Regular rate and rhythm, no murmurs, rubs or gallops, no peripheral edema. Respiratory: Clear to auscultation bilaterally, no tachypnea, no wheezing, no rhonchi, no rubs, no respiratory distress. Abdomen: Soft, nontender, nondistended, no rebound, no guarding, no peritoneal signs. Musculoskeletal: No joint swelling or deformity, normal muscle tone. Skin: No rashes or petechia, no signs of infection. Psychiatric: Alert and oriented, normal behavior and judgment for situation. Neurological: Alert and oriented to person, place, and time. Follows all commands. No focal deficits, speech is clear and fluent. Course Vital Signs Vital signs: Vital Signs Temperature 98.1 F 04/10/25 23:08 Pulse Rate 81 04/10/25 23:08 Respiratory Rate 18 04/10/25 23:08 Blood Pressure 141/78 H 04/10/25 23:08 Pulse Oximetry 98 04/10/25 23:08 Oxygen Delivery Room Air 04/10/25 23:08 Temperature 98.1 F 04/10/25 23:08 Pulse Rate 83 04/11/25 00:48 Respiratory Rate 16 04/11/25 00:48 Blood Pressure 129/80 04/11/25 00:48 Pulse Oximetry 99 04/11/25 00:48 Oxygen Delivery Room Air 04/10/25 23:08 Medical Decision Making MDM Narrative Medical decision making narrative: The patient was evaluated by myself in the emergency department. History is obtained from patient who is an independent historian and physical exam was performed. External medical records were reviewed at this time. IV was established and pertinent tests were ordered. Patient was administered 1 L IV fluid bolus with normal saline and 4 mg IV Zofran. Per patient's request, she was also administered 100 mg of p.o. Colace as she states that she feels as though the Zofran pills at her OBGYN gave her at home has been constipated her. Laboratory results obtained revealing potassium of 3.1 otherwise unremarkable. Patient was administered 40 mg of oral potassium and was able to keep it down. Differential diagnosis considerations include hyperemesis gravidarum, dehydration, electrolyte derangements, acute viral syndrome. Comorbidities impacting this visit include current first-trimester . I have evaluated and discussed social determinants of health with the patient that could potentially impact subsequent diagnosis and treatment plans. On repeat assessment of the patient, reevaluation revealed that the patient is doing well and is in no acute distress. Patient symptoms have improved since she arrived to our emergency department. Repeat vital signs were all reviewed and noted to be stable. Differential diagnosis and treatment plan were discussed with the patient at bedside. Patient agrees with discussion and after shared medical decision making agrees with discharge. All questions were answered to the patient's satisfaction. Patient will follow up with her OBGYN in 3-5 days. Patient was provided with strict return precautions and instructed to return to the emergency department if any new or worsening symptoms develop. The patient was discharged in stable condition. Vital Signs Vital Signs: Vital Signs Temperature 98.1 F 04/10/25 23:08 Pulse Rate 81 04/10/25 23:08 Respiratory Rate 18 04/10/25 23:08 Blood Pressure 141/78 H 04/10/25 23:08 Pulse Oximetry 98 04/10/25 23:08 Oxygen Delivery Room Air 04/10/25 23:08 Temperature 98.1 F 04/10/25 23:08 Pulse Rate 83 04/11/25 00:48 Respiratory Rate 16 04/11/25 00:48 Blood Pressure 129/80 04/11/25 00:48 Pulse Oximetry 99 04/11/25 00:48 Oxygen Delivery Room Air 04/10/25 23:08 Lab Data 04/11/25 00:50 04/11/25 00:50 Labs: Lab Results 04/11/25 Range/Units 00:50 WBC 10.1 H (4.5-10.0) K/mm3 RBC 4.74 (4.2-5.4) M/mm3 Hgb 12.7 (12.0-15.0) g/dL Hct 38.8 (37.0-47.0) % MCV 81.9 (80-100) fl MCH 26.8 (26-34) pg MCHC 32.7 (32-36) g/dl RDW 13.9 (11.5-14.5) % Plt Count 244 (150-375) k/mm3 MPV 9.9 (7.4-10.4) fl Immature Gran % (Auto) 0.3 (0-0.5) % Neut % (Auto) 68.3 (45.5-73.1) % Lymph % (Auto) 25.4 (18.3-44.2) % Rapides % (Auto) 5.2 (2.6-8.5) % Eos % (Auto) 0.6 (0-4.4) % Baso % (Auto) 0.2 (0.2-1.2) % Lymph # (Auto) 2.56 (0.9-3.2) K/mm3 Rapides # (Auto) 0.5 (0.1-0.6) K/mm3 Eos # (Auto) 0.1 (0-0.3) K/mm3 Baso # (Auto) 0.0 (0.0-0.1) K/mm3 Abs Immat Gran (auto) 0.03 (0.00-0.031) K/mm3 Absolute Neuts (auto) 6.9 H (1.3-6.7) K/mm3 Absolute Nucleated RBC 0.000 (0.0-0.012) K/mm3 Nucleated RBC % 0.0 (0.0-0.2) % Sodium 134 L (137-145) mmol/L Potassium 3.1 L (3.4-5.0) mmol/L Chloride 102 (98-107) mmol/L Carbon Dioxide 23 (22-30) mmol/L Anion Gap 9 (4-12) mmol/L BUN 6 L (7-17) mg/dL Creatinine 0.58 L (0.7-1.0) mg/dL Estim Creat Clear Calc 190 ml/min Estimated GFR > 60 (59 - ) Glucose 80 (65-110) mg/dL Calcium 9.4 (8.4-10.2) mg/dL Magnesium 1.9 (1.6-2.3) mg/dL Total Bilirubin 0.5 (0.2-1.3) mg/dL AST 49 H (14-36) U/L ALT 63 H (6-35) U/L Alkaline Phosphatase 70 (38-126) U/L Total Protein 7.8 (6.3-8.2) g/dL Albumin 4.2 (3.5-5.1) g/dL Lipase 59 (23-300) U/L Discharge Plan Discharge Clinical Impression: Hyperemesis gravidarum Patient Disposition: Home Condition: Improved Instructions: Antibiotic Form, Acute Nausea and Vomiting (ED) Additional Instructions: Please follow-up with your OBGYN within the next 3-5 days. Return to the ED if any new or worsening symptoms develop. Patient Language: Malaysian Prescriptions: No Action (DME) cpap mask See Rx Instructions .Route .MEDSUPPLY Qty: 1 0RF Rx Instructions: Half face mask covering nose replacement for Resmed Airsense AutoPAP PNV [id number] 30 mg iron-10 mg iron-1 mg capsule PO Vitamin B-6 50 mg capsule 50 mg PO DAILY (DME) CPAP See Rx Instructions .Route .MEDSUPPLY Qty: 1 0RF Rx Instructions: Resmed AirSense 11 AutoPAP 5-15 cm H2O, CPAP mask/filters/tubing and humidifier chamber ondansetron 4 mg tablet,disintegrating 4 mg PO Q6H PRN (Reason: nausea and vomiting) Qty: 20 0RF Follow-up/Referrals: Maykel Bergman MD [Physician, FURNIT[employer]OVER] - 3 Days Navin Reynolds MD [Primary Care Provider, Family Practice] Time of Disposition: 02:22
[2025-04-11 01:24] LABS: Alanine Aminotransferase 63 U/L (6-35); Albumin Level 4.2 g/dL (3.5-5.1); Alkaline Phosphatase 70 U/L (38-126); Anion Gap 9 mmol/L (4-12); Aspartate Amino Transferase 49 U/L (14-36); Bilirubin,Total 0.5 mg/dL (0.2-1.3); Blood Urea Nitrogen 6 mg/dL (7-17); Calcium 9.4 mg/dL (8.4-10.2); Carbon Dioxide 23 mmol/L (22-30); Chloride 102 mmol/L (98-107); Estimated CRCL calculation 190 ml/min; Estimated Glomerular Filt Rate > 60; Glucose 80 mg/dL (65-110); Lipase 59 U/L (23-300); Magnesium 1.9 mg/dL (1.6-2.3); Potassium 3.1 mmol/L (3.4-5.0); Sodium 134 mmol/L (137-145); Total Protein 7.8 g/dL (6.3-8.2)
[2025-04-11] MEDS: POTASSIUM CHLORIDE 20 MEQ PACKET (FOR LIQUID) 40 MEQ PO (01:52)
[2025-04-11] MEDS: DOCUSATE SODIUM 100 MG CAPSULE PO (01:52)
[2025-04-11] MEDS: ONDANSETRON INJ 4 MG/2 ML VIAL IV PUSH (01:54)
== END 2025-04-11 02:40 | disposition home or self-care (01) ==
PROVIDERS: Emergency Provider Emergency Medicine; PCP Family Medicine
DX: O21.0 Mild hyperemesis gravidarum (principal); O99.611 Diseases of the digestive system complicating pregnancy, first trimester; K58.0 Irritable bowel syndrome with diarrhea; K21.9 Gastro-esophageal reflux disease without esophagitis; O99.351 Diseases of the nervous system complicating pregnancy, first trimester; G47.33 Obstructive sleep apnea (adult) (pediatric); Z87.01 Personal history of pneumonia (recurrent); Z86.16 Personal history of COVID-19; Z90.49 Acquired absence of other specified parts of digestive tract; Z3A.12 12 weeks gestation of pregnancy
CPT/HCPCS: 36415; 80053; 83690; 83735; 85025; 96361; 96374; 99284; A9270; J2405; J7030

== ENCOUNTER 2025-04-16 02:01 | Emergency (ER) | payer OTHER, SELFPAY ==
--- OUTSIDE RECORDS SUMMARY | 2022-08-29 10:30 | XMS_ITS | Continuity of Care Document ---
Author Organization [place] Address [address] [place] [address] Phone Care Team Providers Care Rental Salesperson Name Role Phone Jamal Cohn Unavailable Unavailable Procedures Procedure Date Therapeutic Activities Neuromuscular Re-Ed Therapeutic Exercise Therapeutic Activities Neuromuscular Re-Ed Therapeutic Exercise Manual Therapy Therapeutic Activities Neuromuscular Re-Ed Manual Therapy Therapeutic Exercise Progress Note Therapeutic Activities Neuromuscular Re-Ed Therapeutic Exercise Manual Therapy Therapeutic Activities Neuromuscular Re-Ed Therapeutic Exercise Manual Therapy Therapeutic Activities Neuromuscular Re-Ed Therapeutic Exercise Manual Therapy Therapeutic Activities Neuromuscular Re-Ed Therapeutic Exercise Manual Therapy Hot or Cold Pack PT Evaluation Moderate Complexity Therapeutic Activities Neuromuscular Re-Ed Therapeutic Exercise Manual Therapy Advance Directives Directive Yes / No Effective Date File Name No Information Encounters Encounter Description Practice Location Reason(s) For Visit Diagnoses Date Provider Providers Copied on Encounter [facility] [address], [id number], tel:[phone] [place] No Information 3 Muehl Jamal. [address] [place] [address], [facility] [address], [facility], . tel: [phone] Referring Provider: Kar Smith [facility] Mad[facility] [place], [id number]. tel:[phone] [place] [address], [id number], tel:[phone] [place] No Information 3 Muehl Jamal. [address] [place] [address], [facility] [address], [place], [place], [facility], [place]. tel: [phone] Referring Provider: Kar Smith [address] [place] [address] [place], [address]. tel:[phone] [facility] [address], [id number], [place] tel:[phone] [place] No Information 3 Muehl Jamal. [address] [place] [address], [facility] [address], [place], [address], [place]. tel:[phone] Referring Provider: Sanjeev Goldsmith [facility] [place], [id number]. tel:[phone] [facility] [address], [id number], [place] tel:[phone] [place] No Information 3 Muehl Jamal. [address] [place] [address], [address], [place], [address], [place]. tel:[phone] Referring Provider: Sanjeev Goldsmith [facility] [place], [address]. tel:[phone], [id number], tel:[phone] [place] No Information 3 Muehl Jamal. [address] [place] [address], [address], [facility], . tel: [phone] Referring Provider: Sanjeev Goldsmith [facility] [address] [place], [facility]. tel:[phone] [place] [address], [id number], tel:[phone] [place] No Information 3 Muehl Jamal. [address] [place] [address], [address], [facility], . tel: [phone] Referring Provider: Sanjeev Goldsmith [facility] [address] [place], [facility]. tel:[phone] [place] [address], [id number], tel:[phone] [place] No Information 2 Muehl Jamal. [address] [place] [address], [address], [facility], . tel: [phone] Referring Provider: Sanjeev Goldsmith [facility] [place], [address]. tel:[phone] [place] [address], [id number], tel:[phone] [place] No Information 2 Muehl Jamal. [address] [place] [address], [facility] [address], [place], [facility], . tel: [phone] Referring Provider: Sanjeev Goldsmith [facility] [place], [address]. tel:[phone] Family History Family Member Type Diagnosis Age At Onset No Information Payers Payer name Insurance type Covered democrat ID Authoriza tion(s) [facility] [id number] Social History Type Description Quantity Date Captured [...]
[2025-04-16] VITALS (10 sets, daily range): BP systolic 107–154; BP diastolic 87–112; PULSE 69–100; RESP 16–18; TEMP 36.6–37; O2SAT 98–100
--- OUTSIDE RECORDS SUMMARY | 2025-04-16 02:04 | XMS_ITS | Patient Health Record ---
Author Organization [facility] Address [address] [place] [address] Care Team Providers Care Premium Card Cancellation Clerk Name Role Phone Jose Miguel Yoon Unavailable [phone] Umesh Story Unavailable [phone] Allergies No Known Allergies Reason For Referral [...] decision-maker Yes Do you have Power of Colorectal Surgeon for Health or Medi [facility]? No Drug/Alcohol: Social Info Question Answer Notes [...] Risk Notes Problem Mild recurrent major depression (85492576) Major depressive disorder, recurrent, mild (F33.0) 4 Active confirmed Problem Severe recurrent major depression without psychotic features (35946270) Major depressive disorder, recurrent severe without psychotic features (F33.2) Active confirmed Problem Generalized anxiety disorder (46374351) Generalized anxiety disorder (F41.1) 4 Active confirmed Problem Tobacco user (823237416) Other tobacco product nicotine dependence, uncomplicated (F17.290) Active confirmed Vital Signs Heart Rate 79 /min 10/01/2024 Height-cm 175.26 cm 10/01/2024 Blood pressure diastolic 73 mm Hg 10/01/2024 Weight-kg 130.64 kg 10/01/2024 BMI Percentile 98.6 % 08/09/2024 Height 69.00 in 10/01/2024 Blood pressure systolic 115 mm Hg 10/01/2024 Weight 288 lbs 10/01/2024 BMI 42.53 kg/m2 10/01/2024 Encounters Encounter Location Date Provider Diagnosis [facility] [address] [facility] [address] [place] [address] 05/14/2024 Umesh Story [facility] [email or web address] [facility] [address] [facility] [address] [place] [address] 05/14/2024 Jose Miguel Yoon Generalized anxiety disorder F41.1 ; Major depressive disorder, recurrent, mild F33.0 and Other tobacco product nicotine dependence, uncomplicated F17.290 [facility] [email or web address] [facility] [address] [place] [address] 07/09/2024 Jose Miguelradha Adamsoza Generalized anxiety disorder F41.1 ; Other tobacco product nicotine dependence, uncomplicated F17.290 and Major depressive disorder, recurrent severe without psychotic features F33.2 [facility], [facility] [address] [place] [address] 08/09/2024 Jose Miguel Yoon Generalized anxiety disorder F41.1 ; Other tobacco product nicotine dependence, uncomplicated F17.290 and Major depressive disorder, recurrent severe without psychotic features F33.2 [facility], [facility] [address] [place] [address] 08/30/2024 Jose Miguel Yoon Generalized anxiety disorder F41.1 ; Other tobacco product nicotine dependence, uncomplicated F17.290 and Major depressive disorder, recurrent severe without psychotic features F33.2 [facility], [facility] [address] [place] [address] 10/01/2024 Jose Miguel Yoon Generalized anxiety disorder F41.1 ; Other tobacco product nicotine dependence, uncomplicated F17.290 and Major depressive disorder, recurrent severe without psychotic features F33.2 [facility], [place] [address] [place] [address] 04/15/2025 Jose Miguel Yoon [facility], [facility] [address] [place] [address] 05/10/2024 Jose Miguel Yoon [facility], [facility] [address] [place] [address] 07/08/2024 Jose Miguel Yoon [facility], [facility] [address] [place] [address] 08/27/2024 Jose Miguel Yoon [facility], [facility] [address] [place] [address] 08/28/2024 Jose Miguel Yoon [facility], [facility] [address] [place] [address] 08/30/2024 Jose Miguel Yoon [facility], [facility] [address] [place] [address] 11/28/2024 Jose Miguel Yoon [facility], [facility] [address] [place] [address] 10/07/2024 Jose Miguel Yoon Assessments Encounter Date Diagnosis (ICD Code) Assessment Notes Treatment Notes Treatment Clinical Notes Section Notes 05/14/2024 Generalized anxiety disorder (ICD-10 - F41.1) MDD -Take Abilify 10mg daily for two weeks -Take injection today of Abilify Maintena 400mg once a month Anxiety -supportive care Insomnia -Continue trazodone 50mg at bedtime. Pt Seen by PMHNP student Farzaneh Lamb I have examined the patient with WOOD TOOL MAKER Student. It reflects today's encounter and my [...] Lamb I have examined the patient with WOOD TOOL MAKER Student. It reflects today's encounter and my [...] Lamb I have examined the patient with WOOD TOOL MAKER Student. It reflects today's encounter and my [...] Plan: - Instruct the patient to visit [facility] for information on the patient assistance program. - Provide a sample of Abilify injection today. - Send the Abilify injection prescription to [facility], who are known for handling prior authorizations well. 4. Abilify maintenance: - Patient's last injection was on August 09 and is overdue for the next injection. Plan: - Administer Abilify injection today. - Prescribe Abilify 10 mg orally for the next 14 days while waiting for the injection to take effect. - Send the oral prescription to [facility]. 5. Follow-up: - Schedule a follow-up appointment in one month. Plan Of Treatment No Information Insurance Providers Payer Name Payer Address Payer Phone Subscriber Number Group Number Insured Name Patient Relationship to Insured Coverage Start Date Coverage End Date [employer] [address] DEDE BRASHER [phone] [id number] 01 NARGIS AGUILLON Child - Insured has [...] Surgical History Surgery Date(Month/Year) Removal of gallbladder (76003) 2
--- OUTSIDE RECORDS SUMMARY | 2025-04-16 02:04 | XMS_ITS | Clinical Summary ---
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
--- OUTSIDE RECORDS SUMMARY | 2025-04-16 02:04 | XMS_ITS | Clinical Summary ---
Author Organization [facility] Address [address] [place] [address] Care Team Providers Care District Engineer Name Role Phone Navin Reynolds MD Primary Care Provider +1- [phone] Allergies No known active allergies Social History [...] 3-dose series) 2023 COVID-19 Vaccine (3 - 2024-2 6 season) 2025 07/20/2021, 06/02/2021 Meningococcal Vaccine Completed 04/17/2023 Pneumococcal Vaccine: Pediatrics (0 to 5 Years) and At-Risk Patients (6 to 49 Years) Aged Out No longer eligible b ased on patient's age to complete this topic RSV Immunizations Under 20 Months Aged Out No longer eligible b ased on patient's age to complete this topic Insurance AETNA Care Teams District Engineer Relationship Specialty Start Date End Date Navin Reynolds MD [facility] [address] [address] PCP - General FAMILY PRACTICE 01/01/25
--- NOTE | 2025-04-16 02:24 | ED.GENADULT ---
HPI - General Adult General Chief complaint: Psychiatric Symptoms Stated complaint: 13 wks preg n/v Time Seen by Provider: 04/16/25 02:06 History of Present Illness HPI narrative: Patient is intermittently tearful and starts crying and multiple times throughout the interview. This is a 19-year-old female at 13 weeks gestation presenting for multiple complaints. Her 1st complaint is dizziness. She has had significant nausea and vomiting with this . She has not been able to control it with Zofran vitamin B6. She has not tried doxylamine. This is caused her to become dizzy and lightheaded at work. She has not had any falls or syncope. No abdominal pain or vaginal bleeding or gush of fluids. Patient has OB care with Dr. Emery. Patient says that she has stop calling them because she feels like she is bothering them. Patient states she is a hypochondriac. Patient's 2nd complaint is thoughts of harming herself. Patient says that she has been having dark thoughts of harming herself when she has had her baby. She does not have a solid plan. She says she has a strong history of suicidality and depression. This states she is under significant amount of stress. She has strong support from her family although she feels that her fiance's parents are overbearing. Related Data Home Medications ?Medication ?Instructions ?Recorded ?Confirmed ?Last Taken ?Type vitamins 30 30 mg iron-10 cap PO 03/07/25 04/08/25 04/15/25 History mg iron-folic acid 1 mg-om3 capsule pyridoxine (vitamin B6) 50 mg 50 mg PO DAILY 04/08/25 04/16/25 04/15/25 History capsule (Vitamin B-6) Allergies Allergy/AdvReac Type Severity Reaction Status Date / Time No Known Allergies Allergy Verified 04/16/25 02:43 [facility] Past Medical History Medical History Arthritis Hepatic steatosis Rectal bleeding Hemorrhoids Vomiting GERD (gastroesophageal reflux disease) Irritable bowel syndrome with diarrhea COVID Choledocholithiasis with chronic cholecystitis Nausea and vomiting in adult RUQ pain Elevated liver enzymes Posterior tibial tendinitis of right lower extremity Eczema Sleep disorder Anxiety Abdominal pain ARLET (obstructive sleep apnea) Pneumonia SOB (shortness of breath) on exertion History of dental problems Dizziness Chronic headaches Surgical History Surgical History Hx of endoscopic retrograde cholangiopancreatography Hx laparoscopic cholecystectomy 06/23/22 Family History Family History Father Hypertension Family history of elevated blood lipids Asthma Diabetes mellitus Mother Depression Diabetes mellitus Grandparent Diabetes mellitus Depression Leukemia Uterine cancer Other Heart disease History of leukemia Social History Social History Smoking status: Never smoker Alcohol intake: never Substance use: never Substance use type: does not use Lack of Transportation: No Lack of Food: Never True Current Housing: I Have Housing Concerned About Future Housing: No Difficulty Paying Gas/Electric Bills: No Difficulty Paying for Meds: No Currently Unemployed: No Education: High School Diploma/GED Difficulty w/ Childcare or Family Care: No Living arrangements: with family Occupation/Education: student Gender identity (if verbalized by the patient): Female Spiritual care concerns: No Exam Narrative: APPEARANCE: Patient is intermittently crying throughout the interview Head: atraumatic. EYES: EOMI, NOSE: Atraumatic NECK: Trachea midline RESPIRATORY: No increased rate of breathing clear to auscultation CARDIOVASCULAR: RRR, ABDOMINAL: Obese, soft nontender MUSCULOSKELETAl: No obvious deformities NEURO: Alert. Moving 4/4 extremities SKIN:: Warm, dry. Normal color PSYCHIATRIC: Tearful and crying Course Vital Signs Vital signs: Vital Signs Temperature 98.6 F 04/16/25 02:09 Pulse Rate 100 04/16/25 02:09 Respiratory Rate 18 04/16/25 02:09 Blood Pressure 139/90 04/16/25 02:09 Pulse Oximetry 100 04/16/25 02:09 Oxygen Delivery Room Air 04/16/25 02:09 Temperature 98.6 F 04/16/25 02:09 Pulse Rate 69 04/16/25 02:49 Respiratory Rate 18 04/16/25 02:49 Blood Pressure 134/98 H 04/16/25 02:49 Pulse Oximetry 100 04/16/25 02:49 Oxygen Delivery Room Air 04/16/25 02:09 Medical Decision Making MDM Narrative Medical decision making narrative: -Course: 19-year-old presenting for dizziness lightheadedness in the setting of persistent nausea vomiting of . Dizziness is likely due to dehydration. Patient given antiemetics and fluid resuscitation. Lab studies within acceptable limits. Urine w/ +4 ketones consistent hyperemesis gravidarum. On reevaluation she is now able to tolerate p.o.. Patient is having depression and thoughts of harming herself. The patient is high risk due to . Screening labs obtained the patient is medically cleared for crisis evaluation. Crisis has evaluated the patient and have safety plan her. They have provided her with psych resources. Patient was re-evaluated and she is feeling better. Patient be discharged with OBGYN/psych follow-up. -DDX includes but is not limited to: Hyperemesis gravidarum, dehydration, anxiety depression 50 a day Vital Signs Vital Signs: Vital Signs Temperature 98.6 F 04/16/25 02:09 Pulse Rate 100 04/16/25 02:09 Respiratory Rate 18 04/16/25 02:09 Blood Pressure 139/90 04/16/25 02:09 Pulse Oximetry 100 04/16/25 02:09 Oxygen Delivery Room Air 04/16/25 02:09 Temperature 98.6 F 04/16/25 02:09 Pulse Rate 69 04/16/25 02:49 Respiratory Rate 18 04/16/25 02:49 Blood Pressure 134/98 H 04/16/25 02:49 Pulse Oximetry 100 04/16/25 02:49 Oxygen Delivery Room Air 04/16/25 02:09 Lab Data 04/16/25 02:24 04/16/25 02:24 Labs: Lab Results 04/16/25 04/16/25 Range/Units 02:24 03:04 WBC 9.0 (4.5-10.0) K/mm3 RBC 4.77 (4.2-5.4) M/mm3 Hgb 12.6 (12.0-15.0) g/dL Hct 38.1 (37.0-47.0) % MCV 79.9 L (80-100) fl MCH 26.4 (26-34) pg MCHC 33.1 (32-36) g/dl RDW 13.7 (11.5-14.5) % Plt Count 237 (150-375) k/mm3 MPV 9.8 (7.4-10.4) fl Immature Gran % (Auto) 0.2 (0-0.5) % Neut % (Auto) 62.3 (45.5-73.1) % Lymph % (Auto) 28.1 (18.3-44.2) % Hitchcock % (Auto) 7.9 (2.6-8.5) % Eos % (Auto) 1.3 (0-4.4) % Baso % (Auto) 0.2 (0.2-1.2) % Lymph # (Auto) 2.53 (0.9-3.2) K/mm3 Hitchcock # (Auto) 0.7 H (0.1-0.6) K/mm3 Eos # (Auto) 0.1 (0-0.3) K/mm3 Baso # (Auto) 0.0 (0.0-0.1) K/mm3 Abs Immat Gran (auto) 0.02 (0.00-0.031) K/mm3 Absolute Neuts (auto) 5.6 (1.3-6.7) K/mm3 Absolute Nucleated RBC 0.000 (0.0-0.012) K/mm3 Nucleated RBC % 0.0 (0.0-0.2) % Sodium 135 L (137-145) mmol/L Potassium 3.3 L (3.4-5.0) mmol/L Chloride 101 (98-107) mmol/L Carbon Dioxide 22 (22-30) mmol/L Anion Gap 12 (4-12) mmol/L BUN 4 L (7-17) mg/dL Creatinine 0.53 L (0.7-1.0) mg/dL Estim Creat Clear Calc 196 ml/min Estimated GFR > 60 (59 - ) Glucose 88 (65-110) mg/dL Calcium 9.6 (8.4-10.2) mg/dL Total Bilirubin 0.4 (0.2-1.3) mg/dL AST 41 H (14-36) U/L ALT 74 H (6-35) U/L Alkaline Phosphatase 79 (38-126) U/L Total Protein 7.3 (6.3-8.2) g/dL Albumin 4.1 (3.5-5.1) g/dL TSH (Reflex) 0.807 (0.465-4.68) uIU/mL Free T4 1.55 (0.78-2.19) ng/dL Urine Color Dark yellow (Yellow) Urine Appearance Clear (Clear) Urine pH 5.5 (5.0-9.0) Ur Specific Whitfield 1.039 H (1.001-1.035) Urine Protein 1+ H (Negative) mg/dL Urine Glucose (UA) Negative (Negative) mg/dL Urine Ketones 4+ H (Negative) mg/dL Ur Blood (Man) Negative (Negative) Urine Nitrate Negative (Negative) Urine Bilirubin 2+ H (Negative) Urine Urobilinogen 1.0 (<2.0) mg/dL Add Ur Microanalysis Reviewed Leukocyte Esterase Rfl Trace H (Negative) TANK/UL Urine RBC 3-5 H (0-2) /hpf Urine WBC 0-5 (0-3) /hpf Ur Squamous Epith Cells Few (Few) /hpf Urine Bacteria None seen /hpf Urine Casts 6-10 Urine Mucus Present /lpf POC Urine HCG, Qual Positive (Negative) Salicylates < 1.0 L (2-20) mg/dL Urine Opiates Screen Negative (Negative) Urine Methadone Screen Negative (Negative) Acetaminophen < 10 L (10-30) ug/mL Ur Barbiturates Screen Negative (Negative) Ur Phencyclidine Scrn Negative (Negative) Ur Amphetamine Screen Negative (Negative) U Benzodiazepines Scrn Negative (Negative) Urine Cocaine Screen Negative (Negative) U Cannabinoids Screen Positive A (Negative) Ethyl Alcohol < 10 (<10) mg/dL Influenza A (RT-PCR) Negative (Negative) Influenza B (RT-PCR) Negative (Negative) RSV (RT-PCR) Negative (Negative) SARS-CoV-2 RNA (RT-PCR) Negative (Negative) Discharge Plan Discharge Clinical Impression: Hyperemesis gravidarum, Depression Patient Disposition: Home Condition: Stable Instructions: Antibiotic Form, Nausea and Vomiting in (ED) Additional Instructions: You were seen for nausea vomiting . Please use doxylamine, vitamin B6 and Zofran. You can try phenergan rectal suppositories if you have persistent nausea. Please follow-up up in the next [address] Bergman's office. Please follow-up with the resources provided you by the crisis team. If you develop thoughts of harming herself or someone else please return to the ED for re-evaluation. Patient Language: Nepali Prescriptions: New Unisom (doxylamine) 25 mg tablet 25 mg PO HS PRN (Reason: nausea and vomiting) Qty: 30 0RF promethazine 25 mg suppository 25 mg RECTAL Q6H PRN (Reason: nausea and vomiting) Qty: 12 0RF ondansetron 4 mg tablet,disintegrating 4 mg PO Q8H PRN (Reason: nausea and vomiting) Qty: 30 0RF No Action (DME) cpap mask See Rx Instructions .Route .MEDSUPPLY Qty: 1 0RF Rx Instructions: Half face mask covering nose replacement for Resmed Airsense AutoPAP PNV [id number] 30 mg iron-10 mg iron-1 mg capsule PO Vitamin B-6 50 mg capsule 50 mg PO DAILY (DME) CPAP See Rx Instructions .Route .MEDSUPPLY Qty: 1 0RF Rx Instructions: Resmed AirSense 11 AutoPAP 5-15 cm H2O, CPAP mask/filters/tubing and humidifier chamber ondansetron 4 mg tablet,disintegrating 4 mg PO Q6H PRN (Reason: nausea and vomiting) Qty: 20 0RF amoxicillin 500 mg capsule 500 mg PO Q8H Qty: 21 1RF Follow-up/Referrals: Navin Reynolds MD [Primary Care Provider, Family Practice]
[2025-04-16 02:30] LABS: Hematocrit 38.1 % (37.0-47.0); Hemoglobin 12.6 g/dL (12.0-15.0); Immature Granulocyte Percent A 0.2 % (0-0.5); Lymphocytes Absolute Auto 2.53 K/mm3 (0.9-3.2); Mean Corpuscular HGB Conc 33.1 g/dl (32-36); Mean Corpuscular Hemoglobin 26.4 pg (26-34); Mean Corpuscular Volume 79.9 fl (80-100); Nucleated Red Blood Cells Absolute Auto 0.000 K/mm3 (0.0-0.012); Nucleated Red Blood Cells Perc 0.0 % (0.0-0.2); Platelet Count Result 237 k/mm3 (150-375); Red Blood Count 4.77 M/mm3 (4.2-5.4); White Blood Count 9.0 K/mm3 (4.5-10.0)
--- OUTSIDE RECORDS SUMMARY | 2025-04-16 02:30 | XMS_ITS | Clinical Summary ---
Author Organization [facility] Address [address] [place] [address] Care Team Providers Care Gate Guard Name Role Phone Navin Reynolds MD Primary Care Provider +1- [phone] Allergies No known active allergies Social History [...] complete this topic Insurance AETNA Care Teams Gate Guard Relationship Specialty Start Date End Date Navin Reynolds MD [facility] [address] [address] PCP - General FAMILY PRACTICE 01/01/25
--- OUTSIDE RECORDS SUMMARY | 2025-04-16 02:31 | XMS_ITS | Clinical Summary ---
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
[2025-04-16] MEDS: LACTATED RINGERS 2,000 ML 999 ML IV CONT (02:33)
[2025-04-16] MEDS: ONDANSETRON INJ 4 MG/2 ML VIAL IV PUSH (02:34)
[2025-04-16] MEDS: PROCHLORPERAZINE EDISYLATE 10 MG/2 ML VIAL IM (02:34)
[2025-04-16 02:42] LABS: Acetaminophen < 10 ug/mL (10-30); Salicylate < 1.0 mg/dL (2-20)
[2025-04-16 02:58] LABS: Alanine Aminotransferase 74 U/L (6-35); Albumin Level 4.1 g/dL (3.5-5.1); Alkaline Phosphatase 79 U/L (38-126); Anion Gap 12 mmol/L (4-12); Aspartate Amino Transferase 41 U/L (14-36); Bilirubin,Total 0.4 mg/dL (0.2-1.3); Blood Urea Nitrogen 4 mg/dL (7-17); Calcium 9.6 mg/dL (8.4-10.2); Carbon Dioxide 22 mmol/L (22-30); Chloride 101 mmol/L (98-107); Estimated CRCL calculation 196 ml/min; Estimated Glomerular Filt Rate > 60; Glucose 88 mg/dL (65-110); Potassium 3.3 mmol/L (3.4-5.0); Sodium 135 mmol/L (137-145); Total Protein 7.3 g/dL (6.3-8.2)
[2025-04-16 03:07] LABS: BEDSIDEPREGUCG Positive (Negative)
[2025-04-16 03:08] LABS: Influenza A QL RT-PCR Negative (Negative); Influenza B QL RT-PCR Negative (Negative); RSV RNA, RT-PCR Negative (Negative); SARS-CoV-2 RNA PCR Negative (Negative)
[2025-04-16 03:10] LABS: Free T4 Free Thyroxine 1.55 ng/dL (0.78-2.19)
[2025-04-16 03:24] LABS: Thyroid Stimulating Hormone Reflex 0.807 uIU/mL (0.465-4.68)
[2025-04-16 03:26] LABS: Add Urine Microscopic? YES; Appearance Urine Clear (Clear); Glucose Urine UA Negative (Negative); Leukocyte Esterase Ur Trace LEU/UL (Negative); Need Manual Microscopic Reviewed; Nitrate Urine Negative (Negative); Specific Grav Ur 1.039 (1.001-1.035)
[2025-04-16 03:27] LABS: Cannabinoid Screen Urine Positive (Negative)
== END 2025-04-16 05:33 | disposition home or self-care (01) ==
PROVIDERS: Emergency Provider Emergency Medicine; PCP Family Medicine
DX: O21.0 Mild hyperemesis gravidarum (principal); O99.341 Other mental disorders complicating pregnancy, first trimester; F32.A Depression, unspecified; Z3A.13 13 weeks gestation of pregnancy; Z20.822 Contact with and (suspected) exposure to COVID-19; O99.891 Other specified diseases and conditions complicating pregnancy; M19.90 Unspecified osteoarthritis, unspecified site; O99.611 Diseases of the digestive system complicating pregnancy, first trimester; K58.0 Irritable bowel syndrome with diarrhea; K21.9 Gastro-esophageal reflux disease without esophagitis; O99.351 Diseases of the nervous system complicating pregnancy, first trimester; G47.33 Obstructive sleep apnea (adult) (pediatric); Z86.16 Personal history of COVID-19; Z87.01 Personal history of pneumonia (recurrent); Z90.49 Acquired absence of other specified parts of digestive tract
CPT/HCPCS: 36415; 80053; 80143; 80179; 80307; 81001; 81025; 82077; 84439; 84443; 85025; 87637; 96361; 96372; 96374; 99284; J0780; J2405; J7120

== ENCOUNTER 2025-05-13 09:28 | Outpatient (CLI) | payer OTHER, SELFPAY ==
--- OUTSIDE RECORDS SUMMARY | 2025-05-13 10:01 | XMS_ITS | Clinical Summary ---
Author Organization [facility] [employer] Address [address] [facility] [place] [address] Care Team Providers Care Television Production Technician Name Role Phone Katlyn Reynolds MD Primary Care Provider +1 -[phone] Source Comments [facility] [employer],non-owned Affiliates and Associated Physician Practices is amultiple site organization consisting of ambulatory clinics and hospital sitesin [place], [place], [place] and [place]. This disclosure is being madepursuant to the Care Everywhere program and may not contain all information available regarding this patient. Last updated 18.[employer] Allergies No known active allergies Medications * [...] Comments Blood Pressure 110/58 07/09/2020 11:20 AM ACCOUNT SUPPORT MANAGER Pulse 88 07/09/2020 11:20 AM ACCOUNT SUPPORT MANAGER Temperature 36.9 C (98.4 F) 05/03/2018 4:38 PM CDT Respiratory Rate 20 07/09/2020 11:2 0 AM ACCOUNT SUPPORT MANAGER Oxygen Saturation 99% 07/09/2020 11: 20 AM ACCOUNT SUPPORT MANAGER Inhaled Oxygen Concentration - - Weight 110.3 kg (243 lb 2.7 oz) 020 11:20 AM ACCOUNT SUPPORT MANAGER Height 174 cm (5' 8.5) 07/09/2020 11:2 0 AM ACCOUNT SUPPORT MANAGER Body Mass Index 36.43 07/09/2020 11:20 AM ACCOUNT SUPPORT MANAGER Plan of Treatment Health Maintenance Due Date Last Done Comments HIV SCREENING 2019 HPV VACCINE (1 - 3-dose series) 2019 CHLAMYDIA/GONORRHEA SCREENING 2020 MENINGOCOCCAL (Group B) VACC INE SHARED DECISION-MAKING (1 of 2 - Standard) 2020 HEPATITIS C SCREENING 07/24/2022 DTAP/TDAP/TD VACCINES (1 - Tdap) 2023 HEPATITIS B VACCINE (1 of 3 - 19+ 3-dose series) 2023 DEPRESSION SCREENING 08/07/2024 COVID-19 VACCINE (1 - 2023-2 5 season) 2025 INFLUENZA VACCINE (#1) 2025 ZOSTER VACCINE (1 [...] complete this topic Insurance [employer] Care Teams Television Production Technician Relationship Specialty Start Date End Date Katlyn Reynolds MD [address] [place] [address] PCP - General Family Medicine 06/24/20
--- OUTSIDE RECORDS SUMMARY | 2025-05-13 10:01 | XMS_ITS | Clinical Summary ---
Author Organization [facility] Address [address] [place] [address] Care Team Providers Care Soil Fertility Specialist Name Role Phone Navin Reynolds MD Primary Care Provider +1- [phone] Allergies No known active allergies Social History [...] - 2024-2 6 season) 2025 07/20/2021, 06/02/2021 Influenza Adult (#1) 2025 06/12/2020, 06/01/2018 Meningococcal Vaccine Completed 04/17/2023 Pneumococcal Vaccine: Pediatrics (0 to 5 Years) and At-Risk Patients (6 to 49 Years) Aged Out No longer eligible b ased on patient's age to complete this topic RSV Immunizations Under 20 Months Aged Out No longer eligible b ased on patient's age to complete this topic Insurance AETNA Care Teams Soil Fertility Specialist Relationship Specialty Start Date End Date Navin Reynolds MD [address] [facility] [address] [address] PCP - General FAMILY PRACTICE 01/01/25
--- OUTSIDE RECORDS SUMMARY | 2025-05-13 10:01 | XMS_ITS | Patient Health Record ---
Author Organization [facility] As [place] Address [address] [place] [address] Care Team Providers Care Application Security Developer Name Role Phone Jose Miguel Yoon Unavailable [phone] Umesh Story Unavailable [phone] Allergies No Known Allergies Reason For Referral [...] decision-maker Yes Do you have Power of Technical Cable Jointer for Health or [facility]? No Drug/Alcohol: Social Info Question Answer Notes [...] Risk Notes Problem Mild recurrent major depression (86072743) Major depressive disorder, recurrent, mild (F33.0) 4 Active confirmed Problem Generalized anxiety disorder (15009304) Generalized anxiety disorder (F41.1) 4 Active confirmed Problem Tobacco user (981810784) Other tobacco product nicotine dependence, uncomplicated (F17.290) Active confirmed Problem Severe recurrent major depression without psychotic features (28061930) Major depressive disorder, recurrent severe without psychotic features (F33.2) Active confirmed Vital Signs Heart Rate 79 /min 10/01/2024 Height-cm 175.26 cm 10/01/2024 Blood pressure diastolic 73 mm Hg 10/01/2024 Weight-kg 130.64 kg 10/01/2024 BMI Percentile 98.6 % 08/09/2024 Height 69.00 in 10/01/2024 Blood pressure systolic 115 mm Hg 10/01/2024 Weight 288 lbs 10/01/2024 BMI 42.53 kg/m2 10/01/2024 Encounters Encounter Location Date Provider Diagnosis [facility] [employer] [facility] [address] [facility] [address] [place] [address] 05/14/2024 Umesh Story [facility] [employer] [facility] [address] [facility] [address] [place] [address] 05/14/2024 Jose Miguel Yoon Generalized anxiety disorder F41.1 ; Major depressive disorder, recurrent, mild F33.0 and Other tobacco product nicotine dependence, uncomplicated F17.290 [facility] [employer] [facility] [address] [facility] [address] [place] [address] 07/09/2024 Jose Miguelradha Diaza Generalized anxiety disorder F41.1 ; Other tobacco product nicotine dependence, uncomplicated F17.290 and Major depressive disorder, recurrent severe without psychotic features F33.2 [facility], [facility] [address] [place] [address] 08/09/2024 Jose Miguel Yoon Generalized anxiety disorder F41.1 ; Other tobacco product nicotine dependence, uncomplicated F17.290 and Major depressive disorder, recurrent severe without psychotic features F33.2 [facility], [facility] [address] [place] [address] 08/30/2024 Jose Miguel Adamsoza Generalized anxiety disorder F41.1 ; Other tobacco product nicotine dependence, uncomplicated F17.290 and Major depressive disorder, recurrent severe without psychotic features F33.2 [facility], [place] [address] [place] [address] 10/01/2024 Jose Miguel Adamsoza Generalized anxiety disorder F41.1 ; Other tobacco product nicotine dependence, uncomplicated F17.290 and Major depressive disorder, recurrent severe without psychotic features F33.2 [facility], [place] [address] [place] [address] 04/15/2025 Jose Miguel Yoon [facility], [facility] [address] [place] [address] 07/08/2024 Jose Miguel Yoon [facility], [place] [address] [place] [address] 08/27/2024 Jose Miguel Yoon [facility], [place] [address] [place] [address] 08/28/2024 Jose Miguel Yoon [facility], [place] [address] [place] [address] 08/30/2024 Jose Miguel Yoon [facility], [facility] [address] [place] [address] 11/28/2024 Jose Miguel Yoon [facility], [place] [address] [place] [address] 10/07/2024 Jose Miguel Yoon Assessments Encounter Date Diagnosis (ICD Code) Assessment Notes Treatment Notes Treatment Clinical Notes Section Notes 07/09/2024 Generalized anxiety disorder (ICD-10 - F41.1) [...] 10/01/2024 Generalized anxiety disorder (ICD-10 - F41.1) 05/14/2024 Generalized anxiety disorder (ICD-10 - F41.1) MDD -Take Abilify 10mg daily for two weeks -Take injection today of Abilify Maintena 400mg once a month Anxiety -supportive care Insomnia -Continue trazodone 50mg at bedtime. Pt Seen by PMHNP student Farzaneh Lamb I have examined the patient with BUSINESS PERFORMANCE MANAGER Student. It reflects today's encounter and my [...] habit of vaping in the car. 10/01/2024 Other tobacco product nicotine dependence, uncomplicated (ICD-10 - F17.290) 05/14/2024 Major depressive disorder, recurrent, mild (ICD-10 - F33.0) MDD -Take Abilify 10mg daily for two weeks -Take injection today of Abilify Maintena 400mg once a month Anxiety -supportive care Insomnia -Continue trazodone 50mg at bedtime. Pt Seen by PMHNP student Farzaneh Lamb I have examined the patient with BUSINESS PERFORMANCE MANAGER Student. It reflects today's encounter and my [...] the habit of vaping in the car. 08/30/2024 Other tobacco product nicotine dependence, uncomplicated [...] depressive symptoms, and progress in smoking cessation. 07/09/2024 Major depressive disorder, recurrent severe without [...] Last abilify maintena 400mg injection given 08/09/24 05/14/2024 Other tobacco product nicotine dependence, uncomplicated (ICD-10 - F17.290) MDD -Take Abilify 10mg daily for two weeks -Take injection today of Abilify Maintena 400mg once a month Anxiety -supportive care Insomnia -Continue trazodone 50mg at bedtime. Pt Seen by PMHNP student Farzaneh Lamb I have examined the patient with BUSINESS PERFORMANCE MANAGER Student. It reflects today's encounter and my [...] the habit of vaping in the car. 08/30/2024 Other 1. Major Depressive Disorder: - [...] Plan: - Instruct the patient to visit [employer] for information on the patient assistance program. - Provide a sample of Abilify injection today. - Send the Abilify injection prescription to [facility], who are known for handling prior authorizations well. 4. Abilify maintenance: - Patient's last injection was on August 09 and is overdue for the next injection. Plan: - Administer Abilify injection today. - Prescribe Abilify 10 mg orally for the next 14 days while waiting for the injection to take effect. - Send the oral prescription to [facility]. 5. Follow-up: - Schedule a follow-up appointment in one month. Plan Of Treatment No Information Insurance Providers Payer Name Payer Address Payer Phone Subscriber Number Group Number Insured Name Patient Relationship to Insured Coverage Start Date Coverage End Date Aetna [address] [place] [phone] [id number] HENNA NARGISTEJAS Yang Child - Insured has Financial Responsibility Medications [...] Surgical History Surgery Date(Month/Year) Removal of gallbladder (68797) 2
--- OUTSIDE RECORDS SUMMARY | 2025-05-13 10:01 | XMS_ITS | Clinical Summary ---
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 Gender Identity Not on file Sexual Orientation [...] Visit/Exam 18-64 2022 Covid-19 Vaccine (3 - 2024-2 6 season) 2025 07/20/2021, 06/02/2021 Influenza Vaccine (#1) 2025 0, 06/01/2018 Meningococcal Vaccine Aged Out No jigar cesar eligible based on patient's age to complete this topic Pneumococcal vaccine <65 Aged Out No longer eligible based on patient's age to complete this topic Insurance pickrset [facility] Address: [facility] [address] [place] [address] [facility] HMO M_SOLUTION ACCESS OOS Care Teams Steward/Stewardess Bath Relationship Specialty Start Date End Date Navin Reynolds MD PCP - General Family Medicine 07/08/22
[2025-05-13 13:02] LABS: Hematocrit 36.5 % (37.0-47.0); Hemoglobin 11.6 g/dL (12.0-15.0); Mean Corpuscular HGB Conc 31.8 g/dl (32-36); Mean Corpuscular Hemoglobin 26.9 pg (26-34); Mean Corpuscular Volume 84.5 fl (80-100); Platelet Count Result 240 k/mm3 (150-375); Red Blood Count 4.32 M/mm3 (4.2-5.4); White Blood Count 9.4 K/mm3 (4.5-10.0)
[2025-05-13 13:20] LABS: Alanine Aminotransferase 15 U/L (6-35); Albumin Level 3.3 g/dL (3.5-5.1); Alkaline Phosphatase 63 U/L (38-126); Anion Gap 7 mmol/L (4-12); Aspartate Amino Transferase 33 U/L (14-36); Bilirubin,Total 0.3 mg/dL (0.2-1.3); Blood Urea Nitrogen 5 mg/dL (7-17); Calcium 8.6 mg/dL (8.4-10.2); Carbon Dioxide 24 mmol/L (22-30); Chloride 105 mmol/L (98-107); Estimated Glomerular Filt Rate > 60; Glucose 81 mg/dL (65-110); Potassium 3.4 mmol/L (3.4-5.0); Sodium 136 mmol/L (137-145); Total Protein 6.5 g/dL (6.3-8.2)
[2025-05-13 13:45] LABS: Syphilis IgG/IgM Antibody Non-Reactive (Nonreactive)
[2025-05-13 13:56] LABS: Hepatitis B Surface Antigen Negative (Negative)
[2025-05-13 14:07] LABS: HIV 1/2 Ab P24 Ag Result Negative (Negative)
[2025-05-14 06:07] LABS: Varicella-Zoster Ab, IgG Non Reactive (Non Reactive)
== END 2025-05-13 09:29 | disposition home or self-care (01) ==
LOC: ANHGOSHLAB 09:29
PROVIDERS: PCP Family Medicine; Visit Provider Nurse Practitioner Family
DX: Z34.91 Encounter for supervision of normal pregnancy, unspecified, first trimester (principal); Z3A.12 12 weeks gestation of pregnancy
CPT/HCPCS: 36415; 80053; 85027; 86593; 86703; 86762; 86787; 86850; 86900; 86901; 87086; 87340; G0432

== ENCOUNTER 2025-06-13 13:23 | Outpatient (CLI) | payer OTHER, SELFPAY ==
--- OUTSIDE RECORDS SUMMARY | 2025-06-13 13:29 | XMS_ITS | Clinical Summary ---
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
--- OUTSIDE RECORDS SUMMARY | 2025-06-13 13:29 | XMS_ITS | Patient Health Record ---
Author Organization [facility] As [place] Address [facility] [place] [address] Care Team Providers Care Industrial Custodian Name Role Phone Jose Miguel Yoon Unavailable [phone] Allergies No Known Allergies Reason For Referral [...] decision-maker Yes Do you have Power of Digital Associate for Health or [facility]? No Drug/Alcohol: Social Info Question Answer Notes [...] Risk Notes Problem Mild recurrent major depression (45723992) Major depressive disorder, recurrent, mild (F33.0) 4 Active confirmed Problem Severe recurrent major depression without psychotic features (95303826) Major depressive disorder, recurrent severe without psychotic features (F33.2) Active confirmed Problem Generalized anxiety disorder (72070079) Generalized anxiety disorder (F41.1) 4 Active confirmed Problem Tobacco user (878994679) Other tobacco product nicotine dependence, uncomplicated (F17.290) Active confirmed Vital Signs Heart Rate 79 /min 10/01/2024 Height-cm 175.26 cm 10/01/2024 Blood pressure diastolic 73 mm Hg 10/01/2024 Weight-kg 130.64 kg 10/01/2024 BMI Percentile 98.6 % 08/09/2024 Height 69.00 in 10/01/2024 Blood pressure systolic 115 mm Hg 10/01/2024 Weight 288 lbs 10/01/2024 BMI 42.53 kg/m2 10/01/2024 Encounters Encounter Location Date Provider Diagnosis [facility] [email or web address] [address] [place] [address] 07/09/2024 Jose Miguel Yoon Generalized anxiety disorder F41.1 ; Other tobacco product nicotine dependence, uncomplicated F17.290 and Major depressive disorder, recurrent severe without psychotic features F33.2 [facility] [employer] [facility] [address] [place] [address] 08/09/2024 Jose Miguel Yoon Generalized anxiety disorder F41.1 ; Other tobacco product nicotine dependence, uncomplicated F17.290 and Major depressive disorder, recurrent severe without psychotic features F33.2 [facility] [address] [place] [address] 08/30/2024 Jose Miguel Yoon Generalized anxiety disorder F41.1 ; Other tobacco product nicotine dependence, uncomplicated F17.290 and Major depressive disorder, recurrent severe without psychotic features F33.2 [facility] [address] [place] [address] 10/01/2024 Jose Miguel Yoon Generalized anxiety disorder F41.1 ; Other tobacco product nicotine dependence, uncomplicated F17.290 and Major depressive disorder, recurrent severe without psychotic features F33.2 [facility] [address] [facility] [address] [place] [address] 07/08/2024 Jose Miguel Yoon [facility], [facility] [address] [facility] [address] [place] [address] 08/27/2024 Jose Miguel Yoon [facility], [facility] [address] [facility] [address] [place] [address] 08/28/2024 Jose Miguel Yoon [facility], [facility] [address] [facility] [address] [place] [address] 08/30/2024 Jose Miguel Yoon [facility], [facility] [address] [facility] [address] [place] [address] 11/28/2024 Josem Iguel Yoon [facility], [facility] [address] [facility] [address] [place] [address] 04/15/2025 Jose Miguelradha Adamsoza [facility], [facility] [address] [facility] [address] [place] [address] 10/07/2024 Jose Miguel Yoon Assessments Encounter Date [...] Plan: - Instruct the patient to visit [employer] for information on the patient assistance program. - Provide a sample of Abilify injection today. - Send the Abilify injection prescription to [facility], who are known for handling prior authorizations well. 4. Abilify maintenance: - Patient's last injection was on August 09 and is overdue for the next injection. Plan: - Administer Abilify injection today. - Prescribe Abilify 10 mg orally for the next 14 days while waiting for the injection to take effect. - Send the oral prescription to [facility]. 5. Follow-up: - Schedule a follow-up appointment in one month. Plan Of Treatment No Information Insurance Providers Payer Name Payer Address Payer Phone Subscriber Number Group Number Insured Name Patient Relationship to Insured Coverage Start Date Coverage End Date Aetna [address] [place] [address] [id number] NARGIS AGUILLON Child - Insured has [...] Surgical History Surgery Date(Month/Year) Removal of gallbladder (88961) 2
--- OUTSIDE RECORDS SUMMARY | 2025-06-13 13:29 | XMS_ITS | Clinical Summary ---
Author Organization [facility] Address [address] [place] [address] Care Team Providers Care Process Maintenance Technician Name Role Phone Katlyn Reynolds MD Primary Care Provider [phone] Source Comments [facility],non-owned Affiliates and Associated Physician Practices is amultiple site organization consisting of ambulatory clinics and hospital sitesin [place], [place], [place] and [place]. This disclosure is being madepursuant to the Care Everywhere program and may not contain all information available regarding this patient. Last updated 18.[facility] [employer] Sep[employer] Allergies No known active allergies Medications * Be aware that medications may not be up to date on this document. Alwaysverify current medications with the patient. lamoTRIgine (LaMICtal) 25 MG tablet Take 1 (one) tablet by mouth 2 times daily Active QUEtiapine (SEROquel) 50 MG tablet Take 1 (one) tablet by mouth 2 times daily Active Vit-DSS-Fe Fum-FA ( vitamin with iron) tablet Take 1 (one) tablet by mouth once daily Active lamoTRIgine (LaMICtal) 25 MG tablet Take 1 (one) tablet by mouth 2 times daily 05/27/20 25 Discontinu ed(List Clean-Up) Encounters Date Type Department Care Team Description 05/27/2025 12:56 PM CDT - 05/27/2025 11:59 PM CDT Hospital Encounter [facility] [place] [address] Ismael Magana MD Discharge Disposition: Home or Self Care 05/27/2025 12:52 PM CDT - 05/27/2025 12:55 PM CDT Hospital Encounter [facility] [address] [place] [address] Ismael Magana MD Discharge Disposition: Home or Self Care 05/26/2025 Travel 05/21/2025 Telephone [facility] [address] [place] [address] Paula Lepe Appointment from Last 3 Months Family History Medical History Relation Name Comments ADD/ADHD Brother Asthma Brother Asthma Father CAD (Coronary Artery Disease) Maternal Grandmother Leukemia Maternal Grandmother Depression Mother Diabetes - Type 2 Mother Leukemia Paternal Grandfather Relation Name Status Comments Brother Alive Father Alive Maternal Grandmother Mother Alive Paternal Grandfather Social History Tobacco Use Types Packs/Day Years Used Date Smoking Tobacco: Never Smokeless Tobacco: Never Comments:non smoking househo ld Alcohol Use Standard Drinks/Week Comments Not Currently 0 (1 standard drink = 0.6 oz pur e alcohol) Estimated Date of Delivery Comme nts Yes 10/16/2025 Based on last me nstrual period of 01/09/2025 Sex and Gender Information Value Date Recorded Sex Assigned at Not on file Legal Sex Female 9:04 AM CDT Gender Identity Not on file Sexual Orientation Not on file Last Filed Vital Signs Vital Sign Reading Time Taken Comments Blood Pressure 100/66 05/27/2025 2:01 PM CDT Pulse 77 05/27/2025 2:01 PM CDT Temperature 36.9 C (98.4 F) 05/03/2018 4:38 PM CDT Respiratory Rate 20 07/09/2020 11:2 0 AM SCALP TREATMENT OPERATOR Oxygen Saturation 99% 07/09/2020 11: 20 AM SCALP TREATMENT OPERATOR Inhaled Oxygen Concentration - - Weight 110.3 kg (243 lb 2.7 oz) 020 11:20 AM SCALP TREATMENT OPERATOR Height 175.3 cm (5' 9) 05/27/2025 2:01 PM CDT Body Mass Index 36.43 07/09/2020 11:20 AM SCALP TREATMENT OPERATOR Plan of Treatment Upcoming Encounters Date Type Department Care Team (Late st Contact Info) Description 06/24/2025 1:00 PM SCALP TREATMENT OPERATOR Appointment [facility] [address] [phone] Health Maintenance Due Date Last Done Comments HIV SCREENING 2019 HPV VACCINE (1 - 3-dose series) 2019 CHLAMYDIA/GONORRHEA SCREENING 2020 MENINGOCOCCAL (Group B) VACCINE SHARED DECISION-MAKING (1 of 2 - Standard) 2020 HEPATITIS C SCREENING 07/24/2022 DTAP/TDAP/TD VACCINES (1 - Tdap) 2023 HEPATITIS B VACCINE (1 of 3 - 19+ 3-dose series) 2023 DEPRESSION SCREENING 08/07/2024 COVID-19 VACCINE (3 - 2024- season) 2025 07/20/2021, 06/02/2021 INFLUENZA VACCINE (#1) 2025 , 06/01/2018, 05/16/2016, Additional history exists OB-ONE HOUR GLUCOSE 07/10/2025 OB-TDAP CURRENT 07/17/2025 03/08/2016 Respiratory Syncytial Virus (RSV) Vaccine Pt: or over 60 yrs (1 - Risk 1-dose series) 08/21/2025 ZOSTER VACCINE (1 of 2) 2054 HIB VACCINE Aged Out No longer eligi ble based on patient's age to complete this topic MENINGOCOCCAL GROUPS A/C/Y/W VACCINE Aged Out No longer eligible based on patient's age to complete this topic PNEUMOCOCCAL VACCINE Aged Out No long er eligible based on patient's age to complete this topic Procedures Procedure Name Priority Date/Time Associated Diagnosis Comments SONOGRAM - COMPLETE Routine 05/27/2025 1 2:55 PM CDT Encounter for anatomic survey (HCC) Depression affecting (HCC) Elevated liver enzymes from Last 3 Months Results * Sonogram - Complete (05/27/2025 12:55 PM CDT) Linked Results Indication ======== anatomy evaluation Obesity complicating , Class 3 - BMI of 40.0 or greater Bipolar disease complicating Fatty liver or other liver/biliary disorder of History ====== OB History 1 Lab Tests Test Date Result Genetic screening Declined Maternal Assessment Physical Exam Height 175 cm, 5 ft 9 in. Weight 129 kg, 285 lb. Initial weight 125 kg, 276 lb. BMI 42.09 kg/m . Initial BMI 40.76 kg/m . Weight gain 4 kg, 9 lb Method ====== Transabdominal and transvaginal ultrasound. View: Sufficient ========= Galdamez . Number of fetuses: 1 Dating ====== Date Details Gest. age ELEAZAR LMP 01/09/2025 19 w + 5 d 10/16/2025 Previous U/S 03/26/2025 GA, GA 10 w + 2 d 19 w + 1 d 10/20/2025 U/S 05/27/2025 based upon AC, BPD, Femur, HC 19 w + 2 d 10/19/2025 Assigned dating based on the LMP, selected on 05/27/2025 19 w + 5 d 10/16/2025 General Evaluation Cardiac activity present. FHR 143 bpm. Presentation: cephalic Placenta: Placental site: posterior. No previa seen Umbilical cord: Cord vessels: 3 vessel cord. Insertion site: normal insertion Amniotic fluid: Amount of AF: normal. MVP 5.8 cm Biometry BPD 44.1 mm 19w 2d 34% Hadlock HC 158.7 mm 18w 5d 7% Hadlock Cerebellum tr 18.7 mm 12% [place] Nuchal fold 2.1 mm AC 138.8 mm 19w 2d 31% Hadlock Femur 30.8 mm 19w 4d 36% Hadlock Humerus 26.9 mm 18w 4d 15% Clarisa HC / AC 1.14 -/- 32% Hadlock Weight Calculation: EFW 287 g 25% Hadlock EFW (lb,oz) 0 lb 10 oz EFW by Hadlock ([id number]) appropriate Growth Overview Exam date GA BPD (mm) HC (mm) AC (mm) FL (mm) HL (mm) EFW (g) 05/27/2025 19w 5d 44.1 34% 158.7 7% 138.8 31% 30.8 36% 26.9 15% 287 25% Anatomy The following structures appear normal: Head / Neck Cranium. Lateral ventricles. Choroid plexus. Midline falx. Cavum septi pellucidi. Cerebellum. Cisterna magna. Thalami. Nuchal fold. Face Orbits. Heart / Thorax 4-chamber view. LVOT view. Ductal arch view. Interventricular septum. Great vessels. Right lung. Left lung. Diaphragm. Abdomen Cord insertion. Stomach. Kidneys. Bladder. Bowel. Genitals. Spine Cervical spine. Thoracic spine. Lumbar spine. Sacral spine. Extremities / Skeleton Arms. Hands. Legs. Feet. The following structures could not be adequately visualized: Face Lips. Profile. Nose. Nasal bone. Heart / Thorax RVOT view. 3-vessel view. 8-qwwxwl-xtdskpi view. Situs. Aortic arch view. Bicaval view. sex: female. Maternal Structures Cervix reassuring Approach - Transvaginal: Cervical length 3.40 cm Right Ovary Not visualized Appearance: Adnexa appears normal Left Ovary Not visualized Appearance: Adnexa appears normal Impression ========= * Galdamez IUP at 19 weeks of gestation by stated EDC from LMP & early U/S * Referred to [facility] for obstetrical U/S & request for consult secondary to: Bipolar depression History of fatty liver * Today's ultrasound (U/S) findings: Living galdamez intrauterine fetus growth is in the normal range Amniotic fluid volume (AFV) appears normal Comprehensive anatomic survey appears normal, but is incomplete Endovaginal U/S was performed to better assess cervix & placenta Functional cervical length is normal-range Placenta is clear of the internal cervical os by > 2 cm PAST MEDICAL & OBSTETRICAL HISTORY * Medications: vitamins & see below * Past Medical History: No CHTN, no DM, no thyroidopathy, no asthma, no VTE, no SLE Pre- obesity Class III, BMI 40.8 Obstructive sleep apnea, uses CPAP Bipolar depression, since age 17 years Currently on lamotrigine (Lamictal), quetiapine (Seroquel) Under ongoing care with mental health care provider Fatty liver, diagnosed age 18 years Reportedly had Gastroenterology consult LFTs were within normal limits May-2024 * Past Surgical History: cholecystectomy * Past Gynecologic History: no conization, no LEEP, no D&C * Past Obstetrical History: G1 current * Family history of anomalies, syndromes or developmental delay: none known * Social History: Denies ethanol, tobacco, drugs * Physical Examination: BP = 100/66 mmHg, Pulse = 77 bpm, Weight = 285 pounds * Lab urine test strip today: glucose -, ketones -, protein -, blood -, leukocytes - COUNSELING & RECOMMENDATIONS * In my best medical opinion, I would advise: Low-dose aspirin for preeclampsia prophylaxis 162 mg/day Close supervision by mental health care provider Check ALT & AST at all blood draws and PRN If her LFTs increase, refer to Client Leader Keep in mind her depression meds can cause hepatic dysfunction Screen early for GDM; if negative, repeat at 24-28 weeks Serial U/S for growth & development every 4 weeks testing (NST+BPP) 1X-weekly starting at 32w0d Delivery planning (timing, mode, location): too early to determine at present COMMENTS * Thank you very much for requesting [facility] participation in her obstetrical care * Findings were explained & questions were addressed & precautions were given to patient * U/S does not detect all structural, genetic & functional [id number] anand abnormalities * Telemedicine services were performed for this U/S examination & MFM consultation Patient's identity was confirmed at the [facility] office Appropriateness of the telehealth consult was confirmed Informed consent for telemedicine services was obtained & scanned into EMR Modality was secure interactive audio-video session using [employer] Patient site location was [facility] & nurse presenter was Selvin Edgeley Distant site provider was Ismael Magana MD & location was home office Others present at the patient site included the patient's partner New consult = 45 minutes total, including record review & counseling & coordination of care GENERAL NOTES REGARDING CLINICAL CONDITIONS * Nonalcoholic fatty liver disease (NAFLD) Is presence of hepatic steatosis when no other causes are present DDx: alcohol use, starvation, medication use, -related hepatic steatosis NAFLD can be subdivided into: Nonalcoholic fatty liver (NAFL): hepatic steatosis without hepatic inflammation Nonalcoholic steatohepatitis (BROWN): hepatic steatosis with hepatic inflammation Risk factors: central obesity, T2DM, dyslipidemia, metabolic syndrome Prevalence in the [place] of NAFLD is estimated ~ 10-46% In women of reproductive age, estimated NAFLD rates up to 18% Gestational diabetes mellitus is associated with NAFLD Increased complications with NAFLD include: preeclampsia, gHTN, C/S, PTD, LGA Recommended laboratory assessment (per UpToDate) for NAFLD: Hepatitis A IgG Hepatitis B surface antigen, surface antibody, & core antibody Hepatitis C antibody Plasma iron, ferritin, total iron binding capacity Serum gamma globulin level Anti-smooth muscle antibody, anti-liver/kidney microsomal antibody-1, EMILIE * Mental health disorders in Mental health care management in , general recommendations include: Treatment should be multidisciplinary (e.g. mental health clinician, OB, MFM) Continuing close co-management by her mental health prescribing provider Medication type & dosing are best determined by her long-term mental health care provider Receive the minimum necessary number of medications at lowest effective dosage Generally consider recommendations in the 202 ACOG Clinical Practice Guidelines 4 & 5 Our MFM service is available to discuss treatment options with prescribing provider upon request References cited in this section: The 202 ACOG Clinical Practice Guideline #4 Screening & Diagnosis of Mental Health... The 202 ACOG Clinical Practice Guideline #5 Treatment & Management of Mental Health... [email or web address]-[email or web address] [email or web address] * Potential risks of exposure to psychiatric & anticonvulsant medications: The background risk for defects is 3-5% in the general population However, not all abnormalities are detectable by serum & U/S testing Anticonvulsant use during may increase risks for: IUGR & 1-minute score <7 Congenital malformations & neurodevelopmental effects outcomes may be influenced by: Timing, dose, duration & number of medications or substances Underlying medical condition(s) & genetic factors For more information regarding medication teratogenicity, she can contact: Organization of [employer] ([employer]) Online at [email or web address] or telephone at [phone] Some anticonvulsant medications can be monitored by serum levels: Fluctuating serum medication levels occur during & One proposed schedule: weeks 5-6, week 10, then >= once/trimester & 1-2 weeks Some medications (e.g. lamotrigine & levetiracetam) may need more frequent monitoring lamotrigine (Lamictal) Rx category: anticonvulsant, miscellaneous Increased risk for malformations has not been observed Risk for cleft lip/palate (rate <1%) has not been ruled out Other complications (e.g. PTB, IUGR, LBW) have not been observed Consider monitoring serum levels as clearance is increased in One study suggested no risk of withdrawal after If , watch for rash, sleepiness, poor sucking [email or web address]-[email or web address] rigine/ quetiapine (Seroquel) Rx category: 2nd gen (atypical) antipsychotic Currently no known risk of defects Might increase the chance for gestational diabetes developmental delay or behavior problems: Can cause temporary withdrawal in newborns Delayed development & behavior problems seen at 2 & 7 months of age Delayed development & behavior problems not seen at 1 year of age No known long-term adverse neurodevelopmental outcomes [email or web address]-[email or web address] [email or web address] Follow-up ======== Follow up ultrasound in 4 weeks for growth and to complete anatomic survey Coding ====== Diagnoses O99.342, F31.9: Other mental disorders complicating , Bipolar disease O99.212, E66.813: Obesity complicating , Class 3 - BMI of 40.0 or greater Z36.3: Encounter for screening for malformations Procedures 72929: US Preg Uterus Detailed 41022: US Preg Uterus Transvaginal [facility] [employer] PACS Anatomical Region Laterality Modality Other 05/27/2025 12:5 5 PM CDT Maykel Bergman MD [facility] ORDERABLES Edited Result - Final from Last 3 Months Insurance [employer] Care Teams Process Maintenance Technician Relationship Specialty Start Date End Date Katlyn Reynolds MD [address] [place] [id number] PCP - General Family Medicine 06/24/20
[2025-06-13 15:11] LABS: Alanine Aminotransferase 18 U/L (6-35); Albumin Level 3.6 g/dL (3.5-5.1); Alkaline Phosphatase 58 U/L (38-126); Aspartate Amino Transferase 21 U/L (14-36); Bilirubin,Total 0.4 mg/dL (0.2-1.3); Glucose 1 Hour PP 50gm Dose 99 mg/dL; Total Protein 6.7 g/dL (6.3-8.2)
== END 2025-06-13 13:24 | disposition home or self-care (01) ==
LOC: ANHLAB 13:25
PROVIDERS: PCP Family Medicine; Visit Provider Nurse Practitioner Obstetrics & Gynecology
DX: O99.210 Obesity complicating pregnancy, unspecified trimester (principal); Z3A.00 Weeks of gestation of pregnancy not specified
CPT/HCPCS: 36415; 80076; 82947